=== PATIENT | female | born 1945 | race Caucasian/White ===

== ENCOUNTER 2016-10-07 18:47 | Observation (INO) | payer MEDICARE ==
--- NOTE | 2016-10-07 19:27 | RAD ---
INDICATION: Neurologic change. Code licona. COMPARISON: None TECHNIQUE: Noncontrast axial source images were acquired from the skull base to the vertex. FINDINGS: Ventricles/sulci: The ventricles and cisterns are normal in size and configuration for age. Brain parenchyma: There is periventricular and subcortical white matter change compatible with chronic ischemia. Intracranial hemorrhage:None. Extra-axial spaces: There are no abnormal extra axial fluid collections or evidence of extra-axial mass. Calvarium: There is no calvarial fracture or other calvarial abnormality. Scalp: There is no evidence of scalp or extracalvarial soft tissue abnormality. Paranasal sinuses/mastoid: The paranasal sinuses and mastoid air cells are clear. Other: None. IMPRESSION: Chronic microvascular ischemic changes. No acute findings. Findings called to ED at 1925 hours
[2016-10-07 19:39] LABS: Hematocrit 36 % (35-47); Mean Corpuscular HGB Conc 33 g/dl (31-36); Mean Corpuscular Hemoglobin 27 pg (27-31); Mean Corpuscular Volume 81 fL (80-97); Mean Platelet Volume 9 um3 (7.4-10.4); Red Cell Distribution Width 13 % (10.5-15); White Blood Count 7.9 10^3/ul (3.5-10.8)
--- NOTE | 2016-10-07 19:46 | RAD ---
INDICATION: Slurred speech COMPARISON: None TECHNIQUE: An AP portable view obtained at 1931 hours is submitted. FINDINGS: Bones/Soft Tissues: There are no acute bony findings. Cardiomediastinal: The cardiomediastinal silhouette is normal. Lungs: There are no infiltrates. Pleura: There are no pleural effusions. Other: None IMPRESSION: NO ACTIVE DISEASE.
[2016-10-07 19:47] LABS: Troponin I 0.02 ng/mL (<0.04)
[2016-10-07 19:58] LABS: Albumin 3.9 g/dL (3.2-5.2); Calcium 9.1 mg/dL (8.6-10.3); EGFR African American 98.5 (>60); EGFR Non-African American 76.6 (>60); Globulin 2.6 g/dL (2-4); Potassium 3.2 mmol/L (3.5-5.0); Total Bilirubin 0.5 mg/dL (0.2-1.0); Total Protein 6.5 g/dL (6.4-8.9)
[2016-10-07] MEDS ORDERED: Iodixanol* (CONTRAST) 320 MG/ML 100 ML SDV IV ONE (20:52)
--- NOTE | 2016-10-07 21:36 | RAD ---
INDICATION: Neurologic change. Code licona. COMPARISON: CT brain same date TECHNIQUE: Axial source images were acquired with coronal and sagittal reconstructions. CT angiographic technique was utilized with injection of 80 mL Visipaque 320. FINDINGS: Aortic arch: There are no CT angiogram abnormalities of the arch or the great vessels arising from the arch. Right carotid: The internal carotid artery, carotid bifurcation, extracranial portions of the internal carotid artery, carotid artery at the skull base, carotid siphon, and carotid termination appear patent. There is minor soft plaque formation at the bifurcation with a estimated 30-40% diameter narrowing. Left carotid:The internal carotid artery, carotid bifurcation, extracranial portions of the internal carotid artery, carotid artery at the skull base, carotid siphon, and carotid termination appear widely patent. There is mild plaque formation at bifurcation without significant luminal compromise. The estimated diameter stenosis is approximately 30-40%. Right middle and anterior cerebral arteries: There is luminal narrowing and possible thrombus thrombus in left MCA originating at the level of the M1 segment with significant attenuation of the distal distribution of the middle cerebral artery. There are no CT angiographic abnormalities of the right anterior cerebral artery. Left middle and anterior cerebral arteries: There are no CT angiographic abnormalities of the middle or anterior cerebral arteries Right vertebral: The CT angiographic appearance of the vertebral artery is normal. Left vertebral: The CT angiographic appearance of the vertebral artery is normal. Basilar artery: The basilar artery and basilar tip appear normal. Posterior cerebral arteries: The distal distribution of the right and left posterior cerebral arteries is normal. [place]: The CT angiographic appearance of the [place] is normal. Source images show no evidence of mass or adenopathy within the neck. The thyroid is mildly heterogeneous, particularly the right lobe. There is a small calcification. There are no focal parenchymal abnormalities or abnormal areas of enhancement. IMPRESSION: ATTENUATION LEFT MIDDLE CEREBRAL ARTERY PERHAPS RELATED TO LUMINAL NARROWING AND/OR THROMBUS ORIGINATING AT THE LEVEL OF THE M1 SEGMENT. Findings called to the emergency department. CPT II Codes: 3100F PQRS
[2016-10-07 22:14] LABS: Urine Bacteria 1+ (Absent); Urine Bilirubin Negative (Negative); Urine Glucose 1+(50 mg/dL) (Negative); Urine Nitrite Negative (Negative)
[2016-10-07] MEDS ORDERED: Acetaminophen TAB* 325 MG PO PRN (23:38)
[2016-10-07] MEDS ORDERED: LORazepam TAB(*) 0.5 MG PO ONE (23:40)
[2016-10-07] MEDS ORDERED: Ondansetron INJ* 2 MG/ML VIAL IV PRN (23:40)
--- NOTE | 2016-10-07 23:59 | ED ---
Shawnee Alvarado Alfonso, scribed for Kwasi Abdalla MD on 10/07/16 at 1858 . Neurological HPI - HPI Summary HPI Summary: This patient is a 73 year old female BIBA to [facility] for sudden slurred speech that began at 1705 today. She was out with her daughter who called 911 because she thought the slurred speech may be secondary to CVA. The patient also fell to the floor when she missed the seat of the car entering a motor vehicle. Symptoms aggravated and alleviated by nothing. She reports feeling tiered. PMHx of right sided deficit stroke 2.5 years ago. - History of Current Complaint Chief Complaint: EDNeurologicalDeficit Stated Complaint: POSS STROKE Time Seen by Provider: 10/07/16 18:49 Hx Obtained From: Patient, Family/Lumber Bearer - Daughter Onset/Duration: Sudden Onset, Started minutes ago - 1705 Onset Severity: Moderate Current Severity: Moderate Seizure Severity: Moderate Character: Impaired Speech - slurred, Other: - Positive tired, fixed gaze, and fall while entering motor vehicle Aggravating: Nothing Alleviating: Nothing Associated Signs and Symptoms: Positive: Weakness, Impaired Speech - Slurred - Allergy/Home Medications Allergies/Adverse Reactions: Allergies Allergy/AdvReac Type Severity Reaction Status Date / Time No Known Allergies Allergy Verified 10/07/16 20:49 Home Medications: Home Medications Amitriptyline TAB* [Elavil TAB*] 10 mg PO BEDTIME 10/07/16 [History Confirmed ] Aspirin [Aspirin 81 MG TAB] 81 mg PO DAILY 10/07/16 [History Confirmed 10/07/16] Glyburide 10/07/16 [History] PARoxetine HCL TAB* [Paxil TAB*] 30 mg PO DAILY 10/07/16 [History Confirmed ] Plavix TAB* 10/07/16 [History] QUEtiapine XR TAB* [SEROquel Xr TAB*] 300 mg PO BEDTIME 10/07/16 [History Confirmed 10/07/16] Simvastatin 10/07/16 [History] metFORMIN* [Glucophage 500 MG TAB *] 500 mg PO BID 10/07/16 [History Confirmed 10/07/16] PMH/Surg Hx/FS Hx/Imm Hx Sensory History: Denies: Hx Deafness Opthamlomology History: Denies: Hx Legally Blind - Family History Known Family History: Positive: Other - Conon cancer in mother - Social History Alcohol Use: None Hx Substance Use: No Substance Use Type: Reports: None Hx Tobacco Use: No Review of Systems Negative: Fever Neurological: Other - Positive tiered, fixed gaze, and fall while entering a motor vehicle Positive: Slurred Speech All Other Systems Reviewed And Are Negative: Yes Physical Exam Triage Information Reviewed: Yes Vital Signs On Initial Exam: Initial Vitals Temp Pulse Resp BP Pulse Ox 98.3 F 105 22 143/79 98 10/07/16 18:48 10/07/16 18:48 10/07/16 18:48 10/07/16 18:48 10/07/16 18:48 Vital Signs Reviewed: Yes Appearance: Positive: Well-Appearing, No Pain Distress Skin: Positive: Warm, Skin Color Reflects Adequate Perfusion, Dry Head/Face: Positive: Normal Head/Face Inspection Eyes: Positive: Normal ENT: Positive: Normal ENT inspection Neck: Positive: Supple, Nontender Respiratory/Lung Sounds: Positive: Clear to Auscultation, Breath Sounds Present Cardiovascular: Positive: RRR Abdomen Description: Positive: Nontender, Soft Bowel Sounds: Positive: Present Musculoskeletal: Positive: Normal Neurological: Positive: Normal, Sensory/Motor Intact, Alert, Oriented to Person Place, Time, CN Intact II-III, Slurred Speech Psychiatric: Positive: Affect/Mood Appropriate Diagnostics - Vital Signs Vital Signs Temp Pulse Resp BP Pulse Ox 10/07/16 23:00 80 22 93 10/07/16 22:30 81 21 152/80 99 10/07/16 22:00 116 98 10/07/16 21:30 19 159/67 10/07/16 21:00 84 23 97 10/07/16 20:57 88 13 97 10/07/16 18:48 98.3 F 105 22 143/79 98 - Laboratory Lab Results: Lab Results 10/07/16 10/07/16 10/07/16 Range/Units 19:23 19:23 19:23 WBC 7.9 (3.5-10.8) 10^3/ul RBC 4.50 (4.0-5.4) 10^6/ul Hgb 12.0 (12.0-16.0) g/dl Hct 36 (35-47) % MCV 81 (80-97) fL MCH 27 (27-31) pg MCHC 33 (31-36) g/dl RDW 13 (10.5-15) % Plt Count 215 (150-450) 10^3/ul MPV 9 (7.4-10.4) um3 Neut % (Auto) 63.7 (38-83) % Lymph % (Auto) 27.7 (25-47) % [place] % (Auto) 6.7 (1-9) % Eos % (Auto) 1.4 (0-6) % Baso % (Auto) 0.5 (0-2) % Absolute Neuts (auto) 5.0 (1.5-7.7) 10^3/ul Absolute Lymphs (auto) 2.2 (1.0-4.8) 10^3/ul Absolute Monos (auto) 0.5 (0-0.8) 10^3/ul Absolute Eos (auto) 0.1 (0-0.6) 10^3/ul Absolute Basos (auto) 0 (0-0.2) 10^3/ul Absolute Nucleated RBC 0.04 10^3/ul Nucleated RBC % 0.5 INR (Anticoag Therapy) 0.86 L (0.89-1.11) APTT 27.5 (26.0-36.3) seconds Sodium 134 (133-145) mmol/L Potassium 3.2 L (3.5-5.0) mmol/L Chloride 102 (101-111) mmol/L Carbon Dioxide 23 (22-32) mmol/L Anion Gap 9 (2-11) mmol/L BUN 15 (6-24) mg/dL Creatinine 0.75 (0.51-0.95) mg/dL Est GFR ( Amer) 98.5 (>60) Est GFR (Non-Af Amer) 76.6 (>60) BUN/Creatinine Ratio 20.0 (8-20) Glucose 184 H (70-100) mg/dL Lactic Acid (0.5-2.0) mmol/L Calcium 9.1 (8.6-10.3) mg/dL Total Bilirubin 0.50 (0.2-1.0) mg/dL AST 18 (13-39) U/L ALT 15 (7-52) U/L Alkaline Phosphatase 56 (34-104) U/L Troponin I 0.02 (<0.04) ng/mL Total Protein 6.5 (6.4-8.9) g/dL Albumin 3.9 (3.2-5.2) g/dL Globulin 2.6 (2-4) g/dL Albumin/Globulin Ratio 1.5 (1-3) Triglycerides 126 mg/dL Cholesterol 126 mg/dL LDL Cholesterol 50 mg/dL HDL Cholesterol 51.0 mg/dL Urine Color Urine Appearance Urine pH (5-9) Ur Specific [place] (1.010-1.030) Urine Protein (Negative) Urine Ketones (Negative) Urine Blood (Negative) Urine Nitrate (Negative) Urine Bilirubin (Negative) Urine Urobilinogen (Negative) Ur Leukocyte Esterase (Negative) Urine WBC (Auto) (Absent) Urine RBC (Auto) (Absent) Ur Squamous Epith Cells (Absent) Urine Bacteria (Absent) Urine Glucose (Negative) Blood Type Antibody Screen 10/07/16 10/07/16 10/07/16 Range/Units 19:23 19:23 22:00 WBC (3.5-10.8) 10^3/ul RBC (4.0-5.4) 10^6/ul Hgb (12.0-16.0) g/dl Hct (35-47) % MCV (80-97) fL MCH (27-31) pg MCHC (31-36) g/dl RDW (10.5-15) % Plt Count (150-450) 10^3/ul MPV (7.4-10.4) um3 Neut % (Auto) (38-83) % Lymph % (Auto) (25-47) % [place] % (Auto) (1-9) % Eos % (Auto) (0-6) % Baso % (Auto) (0-2) % Absolute Neuts (auto) (1.5-7.7) 10^3/ul Absolute Lymphs (auto) (1.0-4.8) 10^3/ul Absolute Monos (auto) (0-0.8) 10^3/ul Absolute Eos (auto) (0-0.6) 10^3/ul Absolute Basos (auto) (0-0.2) 10^3/ul Absolute Nucleated RBC 10^3/ul Nucleated RBC % INR (Anticoag Therapy) (0.89-1.11) APTT (26.0-36.3) seconds Sodium (133-145) mmol/L Potassium (3.5-5.0) mmol/L Chloride (101-111) mmol/L Carbon Dioxide (22-32) mmol/L Anion Gap (2-11) mmol/L BUN (6-24) mg/dL Creatinine (0.51-0.95) mg/dL Est GFR ( Amer) (>60) Est GFR (Non-Af Amer) (>60) BUN/Creatinine Ratio (8-20) Glucose (70-100) mg/dL Lactic Acid 0.9 (0.5-2.0) mmol/L Calcium (8.6-10.3) mg/dL Total Bilirubin (0.2-1.0) mg/dL AST (13-39) U/L ALT (7-52) U/L Alkaline Phosphatase (34-104) U/L Troponin I (<0.04) ng/mL Total Protein (6.4-8.9) g/dL Albumin (3.2-5.2) g/dL Globulin (2-4) g/dL Albumin/Globulin Ratio (1-3) Triglycerides mg/dL Cholesterol mg/dL LDL Cholesterol mg/dL HDL Cholesterol mg/dL Urine Color Straw Urine Appearance Clear Urine pH 5.0 (5-9) Ur Specific [place] 1.023 (1.010-1.030) Urine Protein Negative (Negative) Urine Ketones Negative (Negative) Urine Blood Negative (Negative) Urine Nitrate Negative (Negative) Urine Bilirubin Negative (Negative) Urine Urobilinogen Negative (Negative) Ur Leukocyte Esterase Trace H (Negative) Urine WBC (Auto) Trace(0-5/hpf) (Absent) Urine RBC (Auto) Trace(0-2/hpf) (Absent) Ur Squamous Epith Cells Present H (Absent) Urine Bacteria 1+ H (Absent) Urine Glucose 1+(50 mg/dl) H (Negative) Blood Type A Negative Antibody Screen Negative Result Diagrams: 10/07/16 19:23 10/07/16 19:23 Lab Statement: Any lab studies that have been ordered have been reviewed, and results considered in the medical decision making process. - Radiology CXR Xray Interpretation: No Acute Changes - No active disease Radiology Interpretation Completed By: Radiologist - CT Brain CT CT Interpretation Completed By: Radiologist - Chronic microvascular ischemic changes. No acute findings. Head CTA CT Interpretation: Positive (See Comments) - ATTENUATION LEFT MIDDLE CEREBRAL ARTERY PERHAPS RELATED TO LUMINAL NARROWING AND/OR THROMBUS ORIGINATING AT THE LEVEL OF THE M1 SEGMENT. CT Interpretation Completed By: Radiologist - EKG 190 EKG Interpretation: BPM 96; Borderline sinus tachycardia Course/Dx - Course Course Of Treatment: Ms. Boone had a sudden onset of dysarthria about 1205. Her daughter could not understand her. She improved some by the time she got to the hospital but was still slurring her speech. A code pierson was called. She will be admitted by the hospitalist. - Diagnoses Provider Diagnoses: CVA (cerebral vascular accident) - Physician Notifications Discussed Care Of Patient With: Jackelyn Bruce Time Discussed With Above Provider: 19:26 Instructed by Provider To: Will See In ED - Consulted Dr. Bruce (Neurologist ) who will evaluate pt in ED. Consulted - Critical Care Time Critical Care Time: 30-74 min Discharge - Discharge Plan Condition: Stable Disposition: ADMITTED TO [facility] documentation as recorded by the Shawnee martínez Alfonso accurately reflects the service I personally performed and the decisions made by me, Kwasi Abdalla MD.
--- NOTE | 2016-10-08 00:25 | HP ---
H&P (Free Text) History and Physical: PCP: none Date/Time of Evaluation: 10/07/2016 2300 CC: slurred speech, generalized weakness HPI: Mrs Boone is a 71YO female HX L [facility] CVA 2014 who was riding in a car with her daughter when around 1800 she developed sudden onset of slurred speech. Her daughter pulled into [employer] parking lot and they got out. She was able to get around the car to assist her mother to the ground as both legs buckled. Her daughter noticed r facial droop. There was no LOC, head impact, loss of bowel/bladder, focal N/T, headache, N/V, chest pain, SOB, or palpitations. As it happened, a [facility] nurse was in a nearby car available to assist and called EMS. Her symptoms began to resolve after ~5minutes and she reports being at baseline upon arrival to [facility]. PMedHx L [facility] CVA 2014 DM2 HTN HLD depression/anxiety insomnia Ambulatory Orders Amitriptyline TAB* [Elavil TAB*] 10 mg PO BEDTIME 10/07/16 Aspirin [Aspirin 81 MG TAB] 81 mg PO DAILY 10/07/16 Glyburide 10/07/16 PARoxetine HCL TAB* [Paxil TAB*] 30 mg PO DAILY 10/07/16 Plavix TAB* 10/07/16 QUEtiapine XR TAB* [SEROquel Xr TAB*] 300 mg PO BEDTIME 10/07/16 Simvastatin 10/07/16 metFORMIN* [Glucophage 500 MG TAB *] 500 mg PO BID 10/07/16 Allergies No Known Allergies Allergy (Verified 10/07/16 20:49) PSurgHx OU cataract extractions cholecystectomy appendectomy D&C hysterectomy SocHx: denies tobacco, alcohol, & recreational drug HX; , lives alone; DNR/trial of intubation code status, MOLST filled out FamHx: Mother passed of CAD in her 60s. Father passed of prostate CA in his 80s. ROS: as above, otherwise reviewed and all were negative Constitutional: NAD, normally developed, well-nourished overweight white female vitals: Vital Signs Temp 36.8 C 10/07/16 18:48 Pulse 82 10/07/16 23:30 Resp 21 10/07/16 23:30 BP 144/76 10/07/16 23:30 Pulse Ox 100 10/07/16 23:30 Intake & Output 10/07/16 10/07/16 10/08/16 11:59 23:59 11:59 Weight 76.204 kg HEENM: atraumatic; sclera/conjunctiva: non-icteric/clear; hearing: clinically mildly decreased; oropharynx: clear, mucosa moist Neck: soft tissue: non-tender; thyroid: normal Pulmonary: clear to auscultation bilaterally, good aeration, no accessory muscle use CV: RR/RR, normal S1S2, no carotid bruit, no jugular venous distention, 2+ B DP/ PT, no edema Abdominal: soft, non-distended, non-tender, no rebound/guarding/rigidity, normoactive bowel sounds, no hepatosplenomegaly or masses, no costovertebral angle tenderness Musculoskeletal: general: grossly intact; gait: stable Integumental: normal appearance and texture of exposed skin Neurological cranial nerves II: visual patricia tested independently & intact III/IV/: symmetric light reflex, EOMI/PERRLA V: intact facial sensation & mastication VII: intact facial symmetry VIII: hearing clinically mildly decreased AU IX/X: intact palatal motion, no dysarthria XII: midline tongue protrusion, normal voice articulation motor: R-handed LUE: 4+/5 proximally, distally, & retail selling floor leader strength RUE: 4+/5 proximally, distally, & retail selling floor leader strength LLE: 4+/5 proximally & distally RLE: 4+/5 proximally & distally coordination finger/nose: intact, symmetric heal/blanton: intact, symmetric sensory crude touch: globally intact proprioception: intact BLE DTRs Babinski: equivocal R, downgoing L Psychiatric orientation: AA&O to PPS affect: calm mood: cooperative eye contact: good content: reliable responses: timely insight: good to fair Testing: Lab Results 10/07/16 10/07/16 10/07/16 Range/Units 19:23 19:23 19:23 WBC 7.9 (3.5-10.8) 10^3/ul RBC 4.50 (4.0-5.4) 10^6/ul Hgb 12.0 (12.0-16.0) g/dl Hct 36 (35-47) % MCV 81 (80-97) fL MCH 27 (27-31) pg MCHC 33 (31-36) g/dl RDW 13 (10.5-15) % Plt Count 215 (150-450) 10^3/ul MPV 9 (7.4-10.4) um3 Neut % (Auto) 63.7 (38-83) % Lymph % (Auto) 27.7 (25-47) % [place] % (Auto) 6.7 (1-9) % Eos % (Auto) 1.4 (0-6) % Baso % (Auto) 0.5 (0-2) % Absolute Neuts (auto) 5.0 (1.5-7.7) 10^3/ul Absolute Lymphs (auto) 2.2 (1.0-4.8) 10^3/ul Absolute Monos (auto) 0.5 (0-0.8) 10^3/ul Absolute Eos (auto) 0.1 (0-0.6) 10^3/ul Absolute Basos (auto) 0 (0-0.2) 10^3/ul Absolute Nucleated RBC 0.04 10^3/ul Nucleated RBC % 0.5 INR (Anticoag Therapy) 0.86 L (0.89-1.11) APTT 27.5 (26.0-36.3) seconds Sodium 134 (133-145) mmol/L Potassium 3.2 L (3.5-5.0) mmol/L Chloride 102 (101-111) mmol/L Carbon Dioxide 23 (22-32) mmol/L Anion Gap 9 (2-11) mmol/L BUN 15 (6-24) mg/dL Creatinine 0.75 (0.51-0.95) mg/dL Est GFR ( Amer) 98.5 (>60) Est GFR (Non-Af Amer) 76.6 (>60) BUN/Creatinine Ratio 20.0 (8-20) Glucose 184 H (70-100) mg/dL Lactic Acid (0.5-2.0) mmol/L Calcium 9.1 (8.6-10.3) mg/dL Total Bilirubin 0.50 (0.2-1.0) mg/dL AST 18 (13-39) U/L ALT 15 (7-52) U/L Alkaline Phosphatase 56 (34-104) U/L Troponin I 0.02 (<0.04) ng/mL Total Protein 6.5 (6.4-8.9) g/dL Albumin 3.9 (3.2-5.2) g/dL Globulin 2.6 (2-4) g/dL Albumin/Globulin Ratio 1.5 (1-3) Triglycerides 126 mg/dL Cholesterol 126 mg/dL LDL Cholesterol 50 mg/dL HDL Cholesterol 51.0 mg/dL Urine Color Urine Appearance Urine pH (5-9) Ur Specific [place] (1.010-1.030) Urine Protein (Negative) Urine Ketones (Negative) Urine Blood (Negative) Urine Nitrate (Negative) Urine Bilirubin (Negative) Urine Urobilinogen (Negative) Ur Leukocyte Esterase (Negative) Urine WBC (Auto) (Absent) Urine RBC (Auto) (Absent) Ur Squamous Epith Cells (Absent) Urine Bacteria (Absent) Urine Glucose (Negative) Blood Type Antibody Screen 10/07/16 10/07/16 10/07/16 Range/Units 19:23 19:23 22:00 WBC (3.5-10.8) 10^3/ul RBC (4.0-5.4) 10^6/ul Hgb (12.0-16.0) g/dl Hct (35-47) % MCV (80-97) fL MCH (27-31) pg MCHC (31-36) g/dl RDW (10.5-15) % Plt Count (150-450) 10^3/ul MPV (7.4-10.4) um3 Neut % (Auto) (38-83) % Lymph % (Auto) (25-47) % [place] % (Auto) (1-9) % Eos % (Auto) (0-6) % Baso % (Auto) (0-2) % Absolute Neuts (auto) (1.5-7.7) 10^3/ul Absolute Lymphs (auto) (1.0-4.8) 10^3/ul Absolute Monos (auto) (0-0.8) 10^3/ul Absolute Eos (auto) (0-0.6) 10^3/ul Absolute Basos (auto) (0-0.2) 10^3/ul Absolute Nucleated RBC 10^3/ul Nucleated RBC % INR (Anticoag Therapy) (0.89-1.11) APTT (26.0-36.3) seconds Sodium (133-145) mmol/L Potassium (3.5-5.0) mmol/L Chloride (101-111) mmol/L Carbon Dioxide (22-32) mmol/L Anion Gap (2-11) mmol/L BUN (6-24) mg/dL Creatinine (0.51-0.95) mg/dL Est GFR ( Amer) (>60) Est GFR (Non-Af Amer) (>60) BUN/Creatinine Ratio (8-20) Glucose (70-100) mg/dL Lactic Acid 0.9 (0.5-2.0) mmol/L Calcium (8.6-10.3) mg/dL Total Bilirubin (0.2-1.0) mg/dL AST (13-39) U/L ALT (7-52) U/L Alkaline Phosphatase (34-104) U/L Troponin I (<0.04) ng/mL Total Protein (6.4-8.9) g/dL Albumin (3.2-5.2) g/dL Globulin (2-4) g/dL Albumin/Globulin Ratio (1-3) Triglycerides mg/dL Cholesterol mg/dL LDL Cholesterol mg/dL HDL Cholesterol mg/dL Urine Color Straw Urine Appearance Clear Urine pH 5.0 (5-9) Ur Specific [place] 1.023 (1.010-1.030) Urine Protein Negative (Negative) Urine Ketones Negative (Negative) Urine Blood Negative (Negative) Urine Nitrate Negative (Negative) Urine Bilirubin Negative (Negative) Urine Urobilinogen Negative (Negative) Ur Leukocyte Esterase Trace H (Negative) Urine WBC (Auto) Trace(0-5/hpf) (Absent) Urine RBC (Auto) Trace(0-2/hpf) (Absent) Ur Squamous Epith Cells Present H (Absent) Urine Bacteria 1+ H (Absent) Urine Glucose 1+(50 mg/dl) H (Negative) Blood Type A Negative Antibody Screen Negative ECG, personally reviewed: NSR rate 96, no ischemia CXR, personally reviewed: IMPRESSION: NO ACTIVE DISEASE. CT brain WO, personally reviewed: IMPRESSION: Chronic microvascular ischemic changes. No acute findings. CTA head/neck, personally reviewed: IMPRESSION: ATTENUATION LEFT MIDDLE CEREBRAL ARTERY PERHAPS RELATED TO LUMINAL NARROWING AND/OR THROMBUS ORIGINATING AT THE LEVEL OF THE M1 SEGMENT. Impression: 71F HX L MCA CVA presents w/ L MCA TIA DIAGNOSIS & PLAN Primary L MCA TIA : HX L [facility] CVA 2015 : aspirin : telemetry : neurochecks : supplemental oxygen : Andrew Bruce MD consulted by Branden Abdalla MD ED; will follow : EEG in AM : supportive care Secondary DM2 : insulin carb ratio diet : basal/bolus/correctional insulin : check A1c HTN : review meds once reconciled HLD : continue simvastatin once reconciled depression/anxiety : review meds once reconciled insomnia : 0.5mg PO lorazepam HS PRN Admission Rational: CDU observation for TIA DVTp: SCDs & heparin SQ Code Status: full HCP: daughter, Amanda Poe
[2016-10-08] MEDS: NS 0.9% 1000 ML* 1,000 ML IV SCH ×2 (00:45→23:48)
[2016-10-08] MEDS: Potassium Chlor TAB* 20 MEQ TAB.ER PO SCH ×2 (01:13→04:43)
[2016-10-08] MEDS ORDERED: Omeprazole CAP* 20 MG PO SCH (06:00)
[2016-10-08 06:02] LABS: Calcium 8.8 mg/dL (8.6-10.3); EGFR African American 101.7 (>60); Potassium 3.6 mmol/L (3.5-5.0)
[2016-10-08] MEDS: Heparin VIAL(*) 5000 UNITS/ML VIAL (FIVE THOUSAND) SUBCUT SCH ×3 (06:11→22:34)
[2016-10-08 07:25] LABS: BUN/Creatinine Ratio 17.8 (8-20)
[2016-10-08] MEDS ORDERED: Insulin LISPRO* 1 UNITS UNIT SUBCUT SCH (07:30)
[2016-10-08] MEDS: Insulin LISPRO* 1 UNITS UNIT SUBCUT SCH ×4 (07:32→23:48)
[2016-10-08] MEDS: PARoxetine HCL TAB* 10 MG PO SCH (08:47)
[2016-10-08] MEDS ORDERED: Aspirin TAB* 325 MG PO SCH (09:00)
[2016-10-08] MEDS: Docusate CAP* 100 MG PO SCH ×2 (10:52→22:33)
[2016-10-08] MEDS ORDERED: LORazepam INJ* 2 MG/ML 1 ML VIAL IV PUSH PRN (10:59)
--- NOTE | 2016-10-08 11:03 | PN ---
Subjective Date of Service: 10/08/16 Interval History: Patient seen this morning. Reports neuro symptoms have resolved. No further speech issues. Feeling very anxious. Previous stroke presented as RLE numbness/ weakness and she was at rehab for 1 month. Family History: Unchanged from Admission Social History: Unchanged from Admission Past Medical History: Unchanged from Admission Objective Active Medications: Acetaminophen (Tylenol Tab*) 650 mg PO Q6H PRN Amitriptyline HCl (Elavil Tab*) 10 mg PO BEDTIME OREN Aspirin (Aspirin Tab*) 325 mg PO DAILY OREN Docusate Sodium (Colace Cap*) 200 mg PO BID OREN Heparin Sodium (Porcine) (Heparin Vial(*)) 5,000 units SUBCUT Q8HR OREN Sodium Chloride (Ns 0.9% 1000 Ml*) 1,000 mls @ 50 mls/hr IV PER RATE OREN Insulin Glargine (Lantus(*)) 15 units SUBCUT 2100 OREN Insulin Human Lispro (Humalog*) 0 units SUBCUT AC OREN Insulin Human Lispro (Humalog*) 0 units SUBCUT ACHS OREN Omeprazole (Prilosec Cap*) 20 mg PO DAILY@0600 OREN Ondansetron HCl (Zofran Inj*) 4 mg IV Q6H PRN Paroxetine HCl (Paxil Tab*) 30 mg PO DAILY OREN Quetiapine Fumarate (Seroquel Xr Tab*) 300 mg PO BEDTIME OREN Vital Signs 10/08/16 10/08/16 10/08/16 00:26 01:13 03:13 Temperature 98.0 F Pulse Rate 95 Respiratory 20 20 18 Rate Blood Pressure 142/53 (mmHg) O2 Sat by Pulse 100 Oximetry 10/08/16 10/08/16 10/08/16 04:04 07:24 09:31 Temperature 98.0 F 98.6 F Pulse Rate 73 72 Respiratory 16 16 Rate Blood Pressure 142/56 122/58 (mmHg) O2 Sat by Pulse 98 99 99 Oximetry Oxygen Devices in Use Now: None Appearance: Middle-aged, F, laying in bed, appears mildly anxious Eyes: No Scleral Icterus Ears/Nose/Mouth/Throat: Mucous Membranes Moist Neck: NL Appearance and Movements; NL JVP Respiratory: Symmetrical Chest Expansion and Respiratory Effort, Clear to Auscultation Cardiovascular: NL Sounds; No Murmurs; No JVD, RRR Abdominal: NL Sounds; No Tenderness; No Distention Lymphatic: No Cervical Adenopathy Extremities: No Edema Skin: No Rash or Ulcers Neurological: Alert and Oriented x 3, NL Muscle Strength and Tone - Limited R eye adduction, remained of tissue technologist seem intact, - Result Diagrams: 10/07/16 19:23 10/08/16 05:17 Assess/Plan/Problems-Billing Assessment: TIA/CVA in a 71 yo F with hx of CVA, HTN, HLD, DM2, depression/anxiety - Patient Problems (1) TIA (transient ischemic attack) Current Visit: Yes Comment: possible CVA, some deficits in EOM, unclear if this is new. CTA H/N showed possible narrowing/thrombus of M1 segment of L MCA. Echo and MRI ordered and pending. LDL 50. Continue telemetry monitoring. Patient is on ASA/Plavix at home, will continue for now. Continue statin. (2) Diabetes Current Visit: Yes Comment: Continue SSI coverage, stop carb ratio as BG low this AM. HbA1c pending. Holding home medications. (3) HLD (hyperlipidemia) Current Visit: Yes Comment: Continue statin (4) Anxiety Current Visit: Yes Comment: Continue Seroquel, Paxil, Elavil. PRN ativan for MRI (5) DVT prophylaxis Current Visit: Yes Comment: HSQ
[2016-10-08] MEDS ORDERED: LORazepam INJ* 2 MG/ML 1 ML VIAL IV PUSH ONE (11:22)
[2016-10-08] MEDS: Clopidogrel TAB* 75 MG PO SCH (12:26)
[2016-10-08] MEDS: Atorvastatin* 20 MG TAB PO SCH (12:26)
[2016-10-08] MEDS: Levothyroxine TAB* 50 MCG TAB PO SCH (12:28)
--- NOTE | 2016-10-08 15:15 | ECHO ---
Patient: KASHMIR PATEL [facility] Rec#: [id number] : 1945 Date: 10/08/2016 Age: 71y Height: 170.18 cm / 67.0 in Weight: 76.2 kg / 167.9 lbs Sex: F BSA: 1.88 Room#: 433 Admit Date#: 10/08/2016 Type: Inpatient Referring: CARMELLA SCHWARTZ MD Reading: Clif Burnett MD Instructor Extension Work: Kennedi ZunigaCHRISTUS [facility] Transthoracic Echocardiogram Indication: TIA/CVA BP: 122/58 HR: 78 Rhythm: NSR Indications Cerebrovascular Disease Findings History: Prior left MCA CVA 2014, DMII, HTN, HLD, depression/ anxiety. Technical Comments: The study quality is fair. Completed at 1445. Left Ventricle: The left ventricular chamber size is normal. There is no left ventricular hypertrophy. Global left ventricular wall motion and contractility are within normal limits. There is normal left ventricular systolic function. The estimated ejection fraction is 55-60%. Abnormal left ventricular diastolic filling is observed, consistent with impaired relaxation. Left Atrium: The left atrium is mildly dilated. Right Ventricle: The right ventricular cavity size is normal. The right ventricular global systolic function is normal. Right Atrium: The right atrial cavity size is normal. There is no patent foramen ovale visualized. The bubble study is negative. A patent foramen ovale is not demonstrated with color Doppler and agitated contrast. Aortic Valve: The aortic valve is trileaflet. There is no evidence of aortic regurgitation. There is no evidence of aortic stenosis. Mitral Valve: The mitral valve leaflets are mildly thickened. There is mild mitral regurgitation. There is no evidence of mitral stenosis. Tricuspid Valve: The tricuspid valve leaflets are normal. There is mild tricuspid regurgitation. No pulmonary hypertension is noted. There is no tricuspid stenosis. Pulmonic Valve: The pulmonic valve appears normal. There is a trace pulmonic regurgitation. There is no pulmonic stenosis. Pericardium: There is no significant pericardial effusion. A pericardial fat pad is visualized. Aorta: There is no dilatation of the ascending aorta. There is no dilatation of the aortic arch. There is no dilation of the aortic root. Pulmonary Artery: The main pulmonary artery is not well visualized. Venous: The venous system is not well visualized. The inferior vena cava appears normal in size. There is a greater than 50% respiratory change in the inferior vena cava dimension. Contrast: Normal saline was used as contrast for the bubble study. Images 86 and 87. Intravenous contrast was used to help determine presence of intracardiac shunting. Conclusions There is normal left ventricular systolic function. The estimated ejection fraction is 55-60%. Abnormal left ventricular diastolic filling is observed, consistent with impaired relaxation. The left atrium is mildly dilated. No evidence of right to left shunting at the atrial level. No significant valvular disease: There is mild mitral regurgitation. There is mild tricuspid regurgitation. There is a trace pulmonic regurgitation. No reports of prior studies offered for comparison. Measurements Name Value Normal Range RVIDd (AP) 2D 2.5 cm (0.9 - 2.6) RVDdMajor (2D) 3.7 cm (2.2 - 4.4) RAd ISD 4CH 4.6 cm (3.4 - 4.9) RA (A4C)W 3.8 cm (2.9 - 4.6) IVSd (2D) 0.9 cm (0.6 - 1) LVPWd (2D) 0.9 cm (0.6 - 1) LVIDd (2D) 4.8 cm (3.6 - 5.4) LVIDs (2D) 3.6 cm - LV FS (2D) 25 % (25 - 45) Aortic Annulus 2 cm (1.4 - 2.6) Ao root diameter (2D) 3.2 cm (2.1 - 3.5) Ascending Ao 2.8 cm (2.1 - 3.4) Aortic arch 2.4 cm (1.8 - 3.4) LA dimension (AP) 2D 4.1 cm (2.3 - 3.8) LAd ISD 4CH 5.3 cm (2.9 - 5.3) LA ISD 4CH W 4 cm (2.5 - 4.5) Name Value Normal Range LA ESV SP 4CH (A/L) 67 ml - LA ESV SP 2CH (A/L) 59 ml - LA ESV BP (A/L) 65 ml - LA ESV BP (A/L) index 34.37 ml/m2 - LA ESV SP 4CH (MOD) 65 ml - LA ESV SP 2CH (MOD) 56 ml - Name Value Normal Range MV E-wave Vmax 0.78 m/sec - MV deceleration time 226.18 msec - MV A-wave Vmax 1.09 m/sec - MV E:A ratio 0.72 ratio - LV septal e' Vmax 0.05 m/sec - LV lateral e' Vmax 0.08 m/sec - LV E:e' septal ratio 15.6 ratio - LV E:e' lateral ratio 9.75 ratio - Name Value Normal Range AV Vmax 1.27 m/sec - AV VTI 27.3 cm - AV peak gradient 5.28 mmHg - AV mean gradient 3.73 mmHg - LVOT Vmax 1.07 m/sec - LVOT VTI 22.78 cm - LVOT peak gradient 4.61 mmHg - LVOT mean gradient 2.31 mmHg - LINDA Vmax 0.6 m/sec - Name Value Normal Range TR Vmax 2.4 m/sec - TR peak gradient 23 mmHg - RAP 3 mmHg - RVSP 26 mmHg - IVC diameter 1.5 cm - Name Value Normal Range PV Vmax 0.93 m/sec - PV peak gradient 3.44 mmHg -
[2016-10-08] MEDS ORDERED: LORazepam TAB(*) 0.5 MG PO PRN (15:47)
[2016-10-08] MEDS: LORazepam INJ* 2 MG/ML 1 ML VIAL IV PUSH PRN ×2 (16:34→22:34)
--- NOTE | 2016-10-08 17:34 | RAD ---
Indication: Transient ischemic attack. Image sequences: Sagittal and axial T1, axial T2, FLAIR, diffusion and susceptibility weighted images of the brain were obtained. Ventricular structures are midline. No midline shift is noted. The extra-axial spaces are unremarkable. There is central and cortical atrophy noted. The FLAIR images demonstrates multiple periventricular signal abnormalities consistent with chronic ischemic White matter change. No restriction of diffusion is noted. Motion artifact does degrade the images. Orbits, paranasal sinuses and mastoid air cells demonstrates fluid in the right mastoid air cells consistent with right-sided mastoid sinusitis. IMPRESSION: NO ACUTE CHANGES ARE NOTED ON DIFFUSION-WEIGHTED IMAGES. THERE IS DEEP WHITE MATTER CHANGES IN THE PERIVENTRICULAR AREAS BILATERALLY CONSISTENT WITH CHRONIC ISCHEMIC WHITE MATTER CHANGE. MOTION ARTIFACT DEGRADES THE IMAGES. LIKELY RIGHT-SIDED MASTOID SINUSITIS.
--- NOTE | 2016-10-08 19:59 | CONS ---
NEUROLOGY CONSULTATION: DATE OF CONSULT: 10/08/16 LOCATION: The patient is an inpatient. REQUESTING PROVIDER: Dr. Kimani Quiroz. HISTORY OF PRESENT ILLNESS: Malina Bonoe is a 71-year-old woman with a history of hypertension, diabetes, anxiety and depression, left MCA stroke in 2014 as well as TIAs previous to that, who presented to the emergency department after a brief episode of dysarthria. She was riding as a passenger in the car and her daughter was driving when she had acute onset of dysarthria. Her daughter pulled into the parking lot at [place] and the patient tried to get out of the car but seemed to be generally weak and the daughter helped her to the ground. There was a nurse nearby who assessed her and felt that she had facial weakness. Her daughter indicates that she had a "zoned" look, and prior to the onset of the slurred speech, she indicated that she was very sleepy and appeared tired. The daughter indicates that she appeared similarly prior to her stroke in the past. The patient herself has somewhat of an impaired memory for this event and in particular the duration of the dysarthria, but she denies losing consciousness during the event. There were no abnormal body movements noted. She denies any history of seizures in the past. Her daughter estimates that the dysarthria lasted less than 10 minutes. She was admitted for TIA/stroke workup. She underwent yesterday a CT of the brain as well as CTA of the head and neck. CT was negative for any acute process, but the CT angiogram showed luminal narrowing of the left M1 segment and decreased flow distally in the branches of the left M1 with a question of whether this could be chronic and related to her previous left MCA stroke versus a more acute process and contributing to the current symptoms. I confirmed today with the daughter and the patient that she has had this known narrowing of her intracranial circulation for a while and consideration has been given to the placement of an intracranial stent and the patient indicates she is scheduled to undergo some procedure in [place]. She cannot recall the name of her neurologist, but sees someone at [place] with the first name Gaby. She is on dual antiplatelet therapy with Plavix and aspirin currently. She felt back to baseline at this point. She indicates that she has some occasional difficulties with her right side after her stroke in 2014 and occasional word finding difficulties. She is right-handed. PAST MEDICAL HISTORY: 1. Left MCA stroke, 2015. 2. Multiple TIAs. 3. Type 2 diabetes. 4. Hypertension. 5. Hyperlipidemia. 6. Depression and anxiety. 7. Insomnia. HOME MEDICATIONS: 1. Simvastatin 40 mg daily. 2. Plavix 75 mg daily. 3. Levothyroxine 50 mcg daily. 4. Glyburide 5 mg daily. 5. Quetiapine 400 mg at bedtime. 6. Amitriptyline 10 mg at bedtime. 7. Aspirin 81 mg. 8. Metformin 500 mg b.i.d. 9. Paroxetine 30 mg daily. ALLERGIES: PROZAC causes rash and itching. FAMILY HISTORY: Father had a stroke in the past and had prostate cancer. Mother with coronary artery disease. SOCIAL HISTORY: She denies tobacco, alcohol, or drug use. She is . She lives alone in [place], but has been here visiting her daughter at the suggestion of her primary care doctor because of her depression. REVIEW OF SYSTEMS: As per the HPI, otherwise negative. PHYSICAL EXAM: Vital Signs: Temperature 98.7, blood pressure 150/49, heart rate 78, oxygen saturation is 99% on room air. On general examination, she was in no acute distress. Her heart within regular rate and rhythm with no murmurs, rubs, or gallops. Telemetry showed a sinus rhythm throughout her stay. Lungs are clear to auscultation bilaterally. On neurologic examination, she is fully awake, alert, and oriented. She makes occasional paraphasic errors and in particular she has consistent difficulty with saying the word slurred and instead says splurred. There is no significant dysarthria. On cranial nerve testing, her right pupil is irregularly shaped and she has had cataract replacement in the past. However both pupils are briskly reactive. Her versions are full, but with down gaze she has lateral deviation of the left eye and with left horizontal gaze, she seems to have some dysconjugation of her eyes but she indicates no diplopia which suggests this is a chronic finding. Waggoner are full to confrontation bilaterally. Facial sensation and musculature are full and symmetric. Hearing is intact to finger rub. Palate elevates symmetrically and the tongue is midline. Shoulder shrug is full and symmetric. On motor examination, she had some paratonia in the upper and lower extremities. Strength is relatively full in the upper and lower extremities. Sensation is intact to temperature in the upper and lower extremities. Reflexes are 2+ throughout with downgoing toes. There is no ataxia on [id number] or [id number] testing. Romberg is negative. She has difficulty raising on to her toes and her heels but is somewhat able to rock back on to her heels. Tandem gait was not tested. DIAGNOSTIC STUDIES/LAB DATA: Laboratory data reviewed includes a CBC which is entirely normal. CMP was relatively unremarkable aside from a low potassium of 3.2 which is 3.6 today. Her glucose was high at 184 on admission this morning, was 56 at 7:30 in the morning. Hemoglobin A1c is 6.8%. Cholesterol 126, triglycerides 126, LDL 50, HDL 51. Urinalysis showed trace leukocyte esterase, 1+ bacteria, and 1+ glucose. Her brain CT showed no acute finding, but was suggestive of chronic stigmata of small vessel disease. Her head CT angiogram showed findings as described above. Her MRI scan is pending. She has not yet had a transthoracic echocardiogram. IMPRESSION: Malina Boone is a 71-year-old woman with multiple vascular risk factors, on dual platelet therapy, with a previous history of left middle cerebral artery stroke and known left middle cerebral artery stenosis, who presented with transient dysarthria. She may have also had some transient right facial droop. She is back at her baseline at this point. This may have represented a transient ischemic attack and possibly referable to her known intracranial lesion. However, there is also description of some lethargy as well as possible diminished responsiveness which raises the question of a seizure as well. She had an EEG this morning which was essentially normal, though was somewhat suboptimal recording due to significant muscle artifact. She is going to undergo an MRI scan of the brain to look for any new areas of ischemia. She is continued on aspirin and Plavix at this point. It is unlikely that she would have experienced an episode of hypoglycemia leading to these symptoms, though that was considered as a possibility, because her blood glucose when she arrived was 184. I also considered whether she could have had transient hypoperfusion, for example, from transient hypotension which could have given rise to these symptoms. She does not seem to have any history of hypotension, if anything has been hypertensive since she has been here. I suggested that she have her CT angiogram burned on to a disc and take it with her when she is discharged for her followup in [place] with her neurologist. At this point, I would not change her antiplatelet regimen given her known intracranial stenosis. Further recommendations pending her MRI scan and echocardiogram as well. [id number]/[facility] #: [id number] MANOJ
[2016-10-08] MEDS ORDERED: QUEtiapine XR TAB* 300 MG PO SCH (21:00)
[2016-10-08] MEDS ORDERED: Insulin GLARGINE(*) 1 UNITS UNIT SUBCUT SCH (21:00)
[2016-10-08] MEDS: QUEtiapine XR TAB* 200 MG PO SCH (22:33)
[2016-10-08] MEDS: Amitriptyline TAB* 10 MG PO SCH (22:34)
[2016-10-09] MEDS: Heparin VIAL(*) 5000 UNITS/ML VIAL (FIVE THOUSAND) SUBCUT SCH ×3 (06:28→21:08)
[2016-10-09] MEDS: Insulin LISPRO* 1 UNITS UNIT SUBCUT SCH ×4 (07:36→21:40)
[2016-10-09] MEDS: Docusate CAP* 100 MG PO SCH ×2 (08:58→21:10)
[2016-10-09] MEDS: Atorvastatin* 20 MG TAB PO SCH (08:58)
[2016-10-09] MEDS: PARoxetine HCL TAB* 10 MG PO SCH (08:58)
[2016-10-09] MEDS: Clopidogrel TAB* 75 MG PO SCH (08:59)
[2016-10-09] MEDS: Levothyroxine TAB* 50 MCG TAB PO SCH (08:59)
[2016-10-09] MEDS ORDERED: CMC:Pantoprazole TAB (NF) 40 MG TAB PO SCH (09:00)
[2016-10-09] MEDS ORDERED: Aspirin EC Low Dose* 81 MG TAB.EC PO SCH (09:00)
--- NOTE | 2016-10-09 10:03 | EEG ---
ELECTROENCEPHALOGRAPHY: DATE OF STUDY: 10/08/16 LOCATION: The patient is an inpatient. ORDERING PHYSICIAN: Kimani Quiroz MD. HISTORY: This is a 71-year-old woman who has been staying with her daughter for the past week because she has been anxious and did not want to be alone. She was brought to the emergency room yesterday after the sudden onset of slurred speech around 6 p.m. She was riding in the car with her daughter. When the patient tried to get out of the car, her knees buckled. Reportedly, she had right facial droop. Episode lasted approximately 5 minutes. She has a past history of a left MCA stroke in 2015, depression, anxiety, insomnia, diabetes, hypertension, and hyperlipidemia. EEG is requested to evaluate for epileptiform abnormalities. MEDICATIONS: 1. Quetiapine. 2. Omeprazole. 3. Humalog. 4. Lantus. 5. Aspirin 325 mg. 6. Amitriptyline. 7. Paroxetine. DESCRIPTION: There was significant muscle artifact which partially obscured the background in many places during EEG. The patient was significantly anxious. The waking background overall showed appropriate organization with clearly-defined anterior to posterior voltage and frequency gradients. There was a well-defined posterior dominant rhythm of 9 Hz, which was symmetrical and showed normal reactivity. Anteriorly, there was an expected pattern of lower voltage, irregular, mixed faster frequencies. Photic stimulation and hyperventilation were not performed. Throughout the recording, there were no obvious epileptiform discharges, focal features, paroxysmal features, or significant interhemispheric asymmetries. IMPRESSION: This is a normal waking EEG. Some portions of the background were obscured by significant muscle artifact. There are no epileptiform abnormalities. [id number]/[facility] #: [id number] [facility]
--- NOTE | 2016-10-09 13:57 | PN ---
Subjective Date of Service: 10/09/16 Interval History: No more neuro sx's. She states she has had many episodes of aphasia similar to this one in the past. She had some suicidal ideation last night but no longer feels that way. She states she did try to commit suicide with pills about 20 yrs ago. She is not seeing a mental health specialist currently. Family History: Unchanged from Admission Social History: Unchanged from Admission Past Medical History: Unchanged from Admission Objective Active Medications: Acetaminophen (Tylenol Tab*) 650 mg PO Q6H PRN PRN Reason: FEVER/PAIN Amitriptyline HCl (Elavil Tab*) 10 mg PO BEDTIME [facility] Last Admin: 10/08/16 22:34 Dose: 10 mg Aspirin (Aspirin Ec Low Dose*) 81 mg PO DAILY [facility] Last Admin: 10/09/16 08:58 Dose: 81 mg Atorvastatin Calcium (Lipitor*) 20 mg PO DAILY [facility] Last Admin: 10/09/16 08:58 Dose: 20 mg Clopidogrel Bisulfate (Plavix Tab*) 75 mg PO DAILY [facility] Last Admin: 10/09/16 08:59 Dose: 75 mg Docusate Sodium (Colace Cap*) 200 mg PO BID [facility] Last Admin: 10/09/16 08:58 Dose: 200 mg Heparin Sodium (Porcine) (Heparin Vial(*)) 5,000 units SUBCUT Q8HR [facility] Last Admin: 10/09/16 13:26 Dose: 5,000 units Sodium Chloride (Ns 0.9% 1000 Ml*) 1,000 mls @ 50 mls/hr IV PER RATE [facility] Last Admin: 10/08/16 23:48 Dose: 50 mls/hr Insulin Glargine (Lantus(*)) 15 units SUBCUT 2100 [facility] Last Admin: 10/08/16 23:49 Dose: 15 units Insulin Human Lispro (Humalog*) 0 units SUBCUT ACHS [facility] PRN Reason: Protocol Last Admin: 10/09/16 12:33 Dose: 2 unit Levothyroxine Sodium (Synthroid Tab*) 50 mcg PO DAILY [facility] Last Admin: 10/09/16 08:59 Dose: 50 mcg Lorazepam (Ativan Inj*) 1 mg IV PUSH Q6H PRN PRN Reason: Anxiety/MRI Last Admin: 10/08/16 22:34 Dose: 1 mg Lorazepam (Ativan Tab(*)) 0.5 mg PO BEDTIME PRN PRN Reason: INSOMNIA Last Admin: 10/08/16 21:17 Dose: 0.5 mg Ondansetron HCl (Zofran Inj*) 4 mg IV Q6H PRN PRN Reason: NAUSEA Pantoprazole Sodium (Protonix Tab (Nf)) 40 mg PO DAILY [facility] Last Admin: 10/09/16 08:58 Dose: 40 mg Paroxetine HCl (Paxil Tab*) 30 mg PO DAILY [facility] Last Admin: 10/09/16 08:58 Dose: 30 mg Quetiapine Fumarate (Seroquel Xr Tab*) 400 mg PO BEDTIME [facility] Last Admin: 10/08/16 22:33 Dose: 400 mg Vital Signs 10/08/16 10/08/16 10/08/16 16:34 17:34 19:28 Temperature 98.2 F Pulse Rate 73 Respiratory 20 15 18 Rate Blood Pressure 145/64 (mmHg) O2 Sat by Pulse 97 Oximetry 10/08/16 10/08/16 10/08/16 20:00 21:17 22:34 Temperature Pulse Rate Respiratory 18 20 20 Rate Blood Pressure (mmHg) O2 Sat by Pulse Oximetry 10/08/16 10/08/16 10/08/16 23:17 23:34 23:56 Temperature 98.2 F Pulse Rate 71 Respiratory 16 16 18 Rate Blood Pressure 88/62 (mmHg) O2 Sat by Pulse 95 Oximetry 10/09/16 10/09/16 10/09/16 04:28 08:13 09:03 Temperature 97.2 F 97.5 F Pulse Rate 62 62 Respiratory 16 16 16 Rate Blood Pressure 169/66 108/48 (mmHg) O2 Sat by Pulse 96 98 Oximetry 10/09/16 10/09/16 09:05 12:19 Temperature 97.9 F Pulse Rate 106 Respiratory 16 16 Rate Blood Pressure 124/66 (mmHg) O2 Sat by Pulse 99 Oximetry Oxygen Devices in Use Now: None Appearance: Alert, on her side in bed. Flat affect. Looks comfortable. Eyes: No Scleral Icterus Respiratory: Symmetrical Chest Expansion and Respiratory Effort, Clear to Auscultation, Clear to Percussion Cardiovascular: NL Sounds; No Murmurs; No JVD, RRR, No Edema, - Extremities: No Edema, No Clubbing, Cyanosis, - Skin: No Rash or Ulcers, No Nodules or Sclerosis, - Neurological: Alert and Oriented x 3, NL Sensation - Face symmetric. Speech fluent, appropriate. No tremor. Result Diagrams: 10/07/16 19:23 10/08/16 05:17 Additional Lab and Data: Lab Results 10/07/16 10/07/16 10/07/16 Range/Units 19:23 19:23 19:23 WBC 7.9 (3.5-10.8) 10^3/ul RBC 4.50 (4.0-5.4) 10^6/ul Hgb 12.0 (12.0-16.0) g/dl Hct 36 (35-47) % MCV 81 (80-97) fL MCH 27 (27-31) pg MCHC 33 (31-36) g/dl RDW 13 (10.5-15) % Plt Count 215 (150-450) 10^3/ul MPV 9 (7.4-10.4) um3 Neut % (Auto) 63.7 (38-83) % Lymph % (Auto) 27.7 (25-47) % [place] % (Auto) 6.7 (1-9) % Eos % (Auto) 1.4 (0-6) % Baso % (Auto) 0.5 (0-2) % Absolute Neuts (auto) 5.0 (1.5-7.7) 10^3/ul Absolute Lymphs (auto) 2.2 (1.0-4.8) 10^3/ul Absolute Monos (auto) 0.5 (0-0.8) 10^3/ul Absolute Eos (auto) 0.1 (0-0.6) 10^3/ul Absolute Basos (auto) 0 (0-0.2) 10^3/ul Absolute Nucleated RBC 0.04 10^3/ul Nucleated RBC % 0.5 INR (Anticoag Therapy) 0.86 L (0.89-1.11) APTT 27.5 (26.0-36.3) seconds Sodium 134 (133-145) mmol/L Potassium 3.2 L (3.5-5.0) mmol/L Chloride 102 (101-111) mmol/L Carbon Dioxide 23 (22-32) mmol/L Anion Gap 9 (2-11) mmol/L BUN 15 (6-24) mg/dL Creatinine 0.75 (0.51-0.95) mg/dL Est GFR ( Amer) 98.5 (>60) Est GFR (Non-Af Amer) 76.6 (>60) BUN/Creatinine Ratio 20.0 (8-20) Glucose 184 H (70-100) mg/dL Lactic Acid (0.5-2.0) mmol/L Calcium 9.1 (8.6-10.3) mg/dL Total Bilirubin 0.50 (0.2-1.0) mg/dL AST 18 (13-39) U/L ALT 15 (7-52) U/L Alkaline Phosphatase 56 (34-104) U/L Troponin I 0.02 (<0.04) ng/mL Total Protein 6.5 (6.4-8.9) g/dL Albumin 3.9 (3.2-5.2) g/dL Globulin 2.6 (2-4) g/dL Albumin/Globulin Ratio 1.5 (1-3) Triglycerides 126 mg/dL Cholesterol 126 mg/dL LDL Cholesterol 50 mg/dL HDL Cholesterol 51.0 mg/dL Urine Color Urine Appearance Urine pH (5-9) Ur Specific Orange (1.010-1.030) Urine Protein (Negative) Urine Ketones (Negative) Urine Blood (Negative) Urine Nitrate (Negative) Urine Bilirubin (Negative) Urine Urobilinogen (Negative) Ur Leukocyte Esterase (Negative) Urine WBC (Auto) (Absent) Urine RBC (Auto) (Absent) Ur Squamous Epith Cells (Absent) Urine Bacteria (Absent) Urine Glucose (Negative) Blood Type Antibody Screen 10/07/16 10/07/16 10/07/16 Range/Units 19:23 19:23 22:00 WBC (3.5-10.8) 10^3/ul RBC (4.0-5.4) 10^6/ul Hgb (12.0-16.0) g/dl Hct (35-47) % MCV (80-97) fL MCH (27-31) pg MCHC (31-36) g/dl RDW (10.5-15) % Plt Count (150-450) 10^3/ul MPV (7.4-10.4) um3 Neut % (Auto) (38-83) % Lymph % (Auto) (25-47) % [place] % (Auto) (1-9) % Eos % (Auto) (0-6) % Baso % (Auto) (0-2) % Absolute Neuts (auto) (1.5-7.7) 10^3/ul Absolute Lymphs (auto) (1.0-4.8) 10^3/ul Absolute Monos (auto) (0-0.8) 10^3/ul Absolute Eos (auto) (0-0.6) 10^3/ul Absolute Basos (auto) (0-0.2) 10^3/ul Absolute Nucleated RBC 10^3/ul Nucleated RBC % INR (Anticoag Therapy) (0.89-1.11) APTT (26.0-36.3) seconds Sodium (133-145) mmol/L Potassium (3.5-5.0) mmol/L Chloride (101-111) mmol/L Carbon Dioxide (22-32) mmol/L Anion Gap (2-11) mmol/L BUN (6-24) mg/dL Creatinine (0.51-0.95) mg/dL Est GFR ( Amer) (>60) Est GFR (Non-Af Amer) (>60) BUN/Creatinine Ratio (8-20) Glucose (70-100) mg/dL Lactic Acid 0.9 (0.5-2.0) mmol/L Calcium (8.6-10.3) mg/dL Total Bilirubin (0.2-1.0) mg/dL AST (13-39) U/L ALT (7-52) U/L Alkaline Phosphatase (34-104) U/L Troponin I (<0.04) ng/mL Total Protein (6.4-8.9) g/dL Albumin (3.2-5.2) g/dL Globulin (2-4) g/dL Albumin/Globulin Ratio (1-3) Triglycerides mg/dL Cholesterol mg/dL LDL Cholesterol mg/dL HDL Cholesterol mg/dL Urine Color Straw Urine Appearance Clear Urine pH 5.0 (5-9) Ur Specific Orange 1.023 (1.010-1.030) Urine Protein Negative (Negative) Urine Ketones Negative (Negative) Urine Blood Negative (Negative) Urine Nitrate Negative (Negative) Urine Bilirubin Negative (Negative) Urine Urobilinogen Negative (Negative) Ur Leukocyte Esterase Trace H (Negative) Urine WBC (Auto) Trace(0-5/hpf) (Absent) Urine RBC (Auto) Trace(0-2/hpf) (Absent) Ur Squamous Epith Cells Present H (Absent) Urine Bacteria 1+ H (Absent) Urine Glucose 1+(50 mg/dl) H (Negative) Blood Type A Negative Antibody Screen Negative Assess/Plan/Problems-Billing Assessment: TIA/CVA in a 71 yo F with hx of CVA, HTN, HLD, DM2, depression/anxiety - Patient Problems (1) TIA (transient ischemic attack) Current Visit: Yes Status: Acute Comment: -monitoring. Patient is on ASA/ Plavix at home, will continue for now. Continue ASA, clopidogrel, statin. (2) Hypothyroid Current Visit: Yes Status: Acute Code(s): E03.9 - HYPOTHYROIDISM, UNSPECIFIED SNOMED Code(s): 96535663 Comment: TSH wnl 10/08/16. COntinue home dose levothyroxine. (3) Diabetes Current Visit: Yes Status: Acute Code(s): E11.9 - TYPE 2 DIABETES MELLITUS WITHOUT COMPLICATIONS SNOMED Code(s): 88794531 Comment: On transfer to [facility], have stopped Lantus. Start glipizide 6/24 AM once daily in place of glyburide as the shorter half-life might reduce the risk of hypoglycemia. If glycemic contol is not good on once-daily glipizide, it can be increased to 5 mg 8A-5P bid. Status and Disposition: Patient transfered to U as per Dr. Aguila.
[2016-10-09] MEDS: Amitriptyline TAB* 10 MG PO SCH (21:10)
[2016-10-09] MEDS: QUEtiapine XR TAB* 200 MG PO SCH (21:10)
[2016-10-09 21:31] VITALS: BP 158/61
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
[2016-10-10] MEDS ORDERED: glyBURIDE TAB* 5 MG PO SCH (09:00)
[2016-10-10] MEDS ORDERED: glipiZIDE TAB* 5 MG PO SCH (09:00)
--- NOTE | 2016-10-10 11:28 | PN ---
PROGRESS NOTE: DATE OF FOLLOWUP: 10/09/16 - ROOM #433 OVERNIGHT EVENTS: The patient expressed suicidal ideation last night. According to her daughter, who came back to the hospital when she was called about her mother feeling suicidal, the patient was agitated and it sounds like she was sundowning somewhat. She thought it was morning, when it was actually nighttime and she was very agitated in bed. She has, in the past, expressed suicidal ideations and, 20 years ago, was in and out of psychiatric care related to this; but, Ms. Boone's daughter indicates she has been relatively stable up until more recently. She had no recurrence of neurologic symptoms otherwise, overnight. MEDICATIONS: Include: 1. Elavil 10 mg at bedtime. 2. Aspirin 81 mg. 3. Plavix 75 mg. 4. Lipitor 20 mg. 5. Synthroid 50 mcg. 6. Lorazepam. 7. Protonix. 8. Paxil 30 mg daily. 9. Seroquel 400 mg at bedtime. PHYSICAL EXAMINATION: Vital Signs: Temperature 97.9, blood pressure 124/66, heart rate 106, but earlier today was in the 60s to 70s, oxygen saturation 99% on room air. Telemetry was reviewed and there is no evidence for atrial fibrillation. The patient was sleeping when I entered the room. I did not wake her for a formal exam. DATA: MRI scan was personally reviewed and was negative for any acute infarction. There is evidence of bilateral small vessel disease which is greater on the left and there is some encephalomalacia and the deep white matter consistent with an old infarct in left MCA tertiary. Transthoracic echocardiogram showed an ejection fraction of 55% to 60% with mild dilation of the left atrium and no evidence for PFO. IMPRESSION: Malina Boone is a 71-year-old woman with a history of left M1 stenosis who presented with a brief episode of dysarthria and generalized weakness. There has been no evidence for new stroke. Her symptoms could have been referable to hypoperfusion of the left MCA territory, though, only dysarthria is described and not necessarily aphasia. In addition, it is not clear that she had any lateralized weakness with her episode yesterday but rather was noted to have generalized weakness. Still thinks she should continue on her dual antiplatelet therapy and follow up with her neurologist in [place] as an outpatient. The daughter has obtained the CT angiogram on disc and they will bring this to their follow up appointment there. [id number]/[facility] #: [id number] MANOJ
== END 2016-10-09 22:30 ==
LOC: EDBD → ED 18:47 → MEDTELE 23:35 → UNDOADMOB 10-08 00:02 → INTOOBSV 10-08 16:10 → OBSVTOIN 10-08 16:10
PROVIDERS: ADMIT Hospitalist; ATTEND Internal Medicine
DX: G45.9 Transient cerebral ischemic attack, unspecified (principal); E11.9 Type 2 diabetes mellitus without complications; I10 Essential (primary) hypertension; E78.5 Hyperlipidemia, unspecified; F32.9 Major depressive disorder, single episode, unspecified; F41.9 Anxiety disorder, unspecified; E03.9 Hypothyroidism, unspecified; G47.00 Insomnia, unspecified; I51.7 Cardiomegaly; Z79.899 Other long term (current) drug therapy; Z79.4 Long term (current) use of insulin; F09 Unspecified mental disorder due to known physiological condition
CPT/HCPCS: 36415; 70450; 70496; 70498; 70551; 71010; 80048; 80053; 80061; 81003; 81015; 83036; 83605; 84443; 84484; 85025; 85610; 85730; 86850; 86900; 86901; 87086; 93005; 93306; 94760; 95816; 96361; 96372; 96374; 96376; 99291; A9270-GY; G0378; J1644; J2060; Q9967

== ENCOUNTER 2016-10-09 17:53 | Inpatient (IN) | payer MEDICARE ==
[2016-10-10] MEDS ORDERED: Acetaminophen TAB* 325 MG PO PRN (00:35)
[2016-10-10] MEDS ORDERED: Al Hydrox/Mg Hydrox/Simet LIQ* 30 ML UDC PO PRN (00:35)
[2016-10-10] MEDS ORDERED: LORazepam TAB(*) 0.5 MG PO PRN (00:48)
[2016-10-10] MEDS: Levothyroxine TAB* 50 MCG TAB PO SCH (10:19)
[2016-10-10] MEDS: Aspirin Low Dose CHEW TAB* 81 MG PO SCH (10:19)
[2016-10-10] MEDS: glipiZIDE TAB* 5 MG PO SCH (10:20)
[2016-10-10] MEDS: Clopidogrel TAB* 75 MG PO SCH (10:20)
[2016-10-10] MEDS: CMCS: Pantoprazole TAB (NF) 40 MG TAB PO SCH (10:20)
[2016-10-10] MEDS: PARoxetine HCL TAB* 10 MG PO SCH (10:20)
[2016-10-10] MEDS: Docusate CAP* 100 MG PO SCH ×2 (10:20→20:33)
[2016-10-10] MEDS: Insulin LISPRO* 1 UNITS UNIT SUBCUT SCH ×4 (10:34→20:41)
--- NOTE | 2016-10-10 14:10 | ADMNOTE ---
Identification - Identify Employment Status: Unemployed Hx Psychiatric Hospitalization: Yes History - Objective HPI: I reviewed Dr Aguila's sign-out and consultation from yesterday. Pt was transferred to the [facility] last night. I reviewed staff notes since being transferred back. I met with her with her daughter (Amanda) present. We briefly reviewed events leading to hospitalization. She notes increased depression and anxiety since Seroquel was decreased from 600mg to 300mg about 1 month ago. This was following hospitalization when Lunesta was discontinued. She reports a psychiatric hospitalization at [facility] in [place] for panic about 4 years ago, something her daughter wasn't aware of. Current mood is "nervous" and rates depression as 9/10 and anxiety as 8/10 (10 being the worst). Slept "okay" but notes taking lorazepam. Daytime energy is "so so." Didn't eat breakfast but had some lunch. Notes feeling jittery, glucose level was ~150. Notes sore tailbone. Denies other physical complaints. Denies any acute confusion. Is oriented to location and date. Denies hallucinations. Denies SI or thoughts of self-harm. Notes regarding past meds: Lunesta-stopped due to stroke like symptoms; trazodone-didn't work; fluoxetine- allergic; sertraline-sweating. Exam Appearance: Obese Hygiene: Normal Grooming: Fairly Well Kept Psychomotor Activities: Abnormal-Increased - tremor Exhibits Abnormal Movement: Yes Attitude and Relatedness: Cooperative Eye Contact: Fair - Speech Quality: Unpressured Latencies: Normal Quantity: Terse - repetitive, speech impediment Patient's Decription of Mood: "nervous" Observed Affect: Fair Affect Consistent with: Dysphoria - anxious Patient's Thought Process: Coherent - ruminative Thought Content: No Passive Wish, No Suicidal Planning, No Homicidal Ideation, No Paranoid Ideation Experiencing Hallucinations: No, Sensorium is Clear Level of Consciousness: Alert Orientation: Yes Intact, Yes Orientated to Time, Yes Orientated to Place, Yes Orientated to Person Impulse Control: Intact Insight and Judgement: Fair Impression - Impression Clinical Impression: 71yo female with a hx of learning disability,anxiety,depression, distant suicide attempt and past psychiatric hospitalizations transferred from Medicine/ Neuro after being admitted for evaluation for TIA. She has been transferred to the [facility] for increase in depression and expressing SI. Increase in depression coincides with recent decrease in quetiapine. - Hasty I Mental Illness: Depression Unspecified. hx of learning disability. Neurocognitive D/o Unspecified - Hasty III Medical Illness: recent TIA Plan - Treatment Plan Treatment Plan: - recommend continuing higher dose of Seroquel (400mg po qhs) for a couple days. She first got the higher dose last night. Consider increasing further if depression and anxiety remain elevated - continue Paxil. Consider switching to Lexapro - to hold lorazapem and switch to mirtazapine 15mg po qhs prn. This will reduce the risk of falls/delirium. We discussed risks/side effects, she understands these risks, and consents to take the medication at this time. - refer to local mental health providers as she will be spending more time in the [facility]. I would recommend starting to see a psychiatrist again. - recommend speaking with daughter about who manages her medications. She seemed confused about her meds and I think she is at risk for poor medication adherence. - to continue other medications. Please be aware Dr Ramirez recently recommended changing diabetes meds (which I have done) Medications: Current Medications Acetaminophen (Tylenol Tab*) 650 mg PO Q4H PRN PRN Reason: PAIN or TEMP > 101 F Al Hydrox/Mg Hydrox/Simethicone (Maalox Plus*) 30 ml PO Q4H PRN PRN Reason: INDIGESTION Amitriptyline HCl (Elavil Tab*) 10 mg PO BEDTIME [facility] Aspirin (Aspirin Low Dose Tab*) 81 mg PO DAILY [facility] Last Admin: 10/10/16 10:19 Dose: 81 mg Clopidogrel Bisulfate (Plavix Tab*) 75 mg PO DAILY [facility] Last Admin: 10/10/16 10:20 Dose: 75 mg Docusate Sodium (Colace Cap*) 200 mg PO BID [facility] Last Admin: 10/10/16 10:20 Dose: 200 mg Glipizide (Glucotrol Tab*) 5 mg PO DAILY [facility] Last Admin: 10/10/16 10:20 Dose: 5 mg Insulin Human Lispro (Humalog*) 0 units SUBCUT ACHS [facility] PRN Reason: Protocol Last Admin: 10/10/16 12:03 Dose: 1 unit Levothyroxine Sodium (Synthroid Tab*) 50 mcg PO 0600 [facility] Last Admin: 10/10/16 10:19 Dose: 50 mcg Lorazepam (Ativan Tab(*)) 0.5 mg PO BEDTIME PRN PRN Reason: ANXIETY Last Admin: 10/09/16 23:10 Dose: 0.5 mg Pantoprazole Sodium (Protonix Tab (Nf)) 40 mg PO DAILY [facility] Last Admin: 10/10/16 10:20 Dose: 40 mg Paroxetine HCl (Paxil Tab*) 30 mg PO DAILY [facility] Last Admin: 10/10/16 10:20 Dose: 30 mg Quetiapine Fumarate (Seroquel Xr Tab*) 400 mg PO BEDTIME [facility]
[2016-10-10] MEDS: Amitriptyline TAB* 10 MG PO SCH (20:33)
[2016-10-10] MEDS: QUEtiapine XR TAB* 200 MG PO SCH (20:33)
[2016-10-10] MEDS: Mirtazapine TAB* 15 MG PO PRN (20:34)
[2016-10-10] MEDS ORDERED: Insulin GLARGINE(*) 1 UNITS UNIT SUBCUT SCH (21:00)
[2016-10-11] MEDS: Insulin LISPRO* 1 UNITS UNIT SUBCUT SCH ×4 (08:01→20:29)
[2016-10-11] MEDS: Levothyroxine TAB* 50 MCG TAB PO SCH (09:53)
[2016-10-11] MEDS: Docusate CAP* 100 MG PO SCH ×2 (09:53→20:30)
[2016-10-11] MEDS: Aspirin Low Dose CHEW TAB* 81 MG PO SCH (09:54)
[2016-10-11] MEDS: glipiZIDE TAB* 5 MG PO SCH (09:54)
[2016-10-11] MEDS: Clopidogrel TAB* 75 MG PO SCH (09:54)
[2016-10-11] MEDS: Atorvastatin* 20 MG TAB PO SCH (09:54)
[2016-10-11] MEDS: PARoxetine HCL TAB* 10 MG PO SCH (09:54)
[2016-10-11] MEDS: CMCS: Pantoprazole TAB (NF) 40 MG TAB PO SCH (09:55)
[2016-10-11] MEDS: Amitriptyline TAB* 10 MG PO SCH (20:30)
[2016-10-11] MEDS: Mirtazapine TAB* 15 MG PO PRN (20:30)
[2016-10-11] MEDS: QUEtiapine XR TAB* 200 MG PO SCH (20:31)
[2016-10-12] MEDS: Docusate CAP* 100 MG PO SCH ×2 (08:40→20:01)
[2016-10-12] MEDS: Clopidogrel TAB* 75 MG PO SCH (08:40)
[2016-10-12] MEDS: Atorvastatin* 20 MG TAB PO SCH (08:41)
[2016-10-12] MEDS: PARoxetine HCL TAB* 10 MG PO SCH (08:41)
[2016-10-12] MEDS: glipiZIDE TAB* 5 MG PO SCH (08:41)
[2016-10-12] MEDS: Levothyroxine TAB* 50 MCG TAB PO SCH (08:41)
[2016-10-12] MEDS: Aspirin Low Dose CHEW TAB* 81 MG PO SCH (08:41)
[2016-10-12] MEDS: CMCS: Pantoprazole TAB (NF) 40 MG TAB PO SCH (08:42)
[2016-10-12] MEDS: Insulin LISPRO* 1 UNITS UNIT SUBCUT SCH ×4 (09:03→20:02)
--- NOTE | 2016-10-12 10:35 | PN ---
Subjective - Subjective Service Type: 27726 Hosp care 15 min low complexity Subjective: [place] notes high distress. Identifies as anxious and sad, with no ability to self sooth, gain perspective, or cope. She focuses on medication, superficially agreeing with plan to resume higher dose Seroquel, and make Remeron standing; but asks for medicine that will immediately stop her problem. I offered short term hydroxzyzine use for anxiety , and tried to provide reasonable expectations and support. She endorses passive wishes. Objective - Appearance Appearance: Well Developed/Nourished Hygiene: Normal Grooming: Fairly Well Kept - Behavior Psychomotor Activities: Abnormal-Increased - Attitude and Relatedness Attitude and Relatedness: Child Like Eye Contact: Good - Speech Quality: Unpressured Latencies: Normal Quantity: Appropriate - Mood Patient's Decription of Mood: "Terrible" - Affect Observed Affect: Labile Affect Consistent with: Dysphoria - Thought Process Patient's Thought Process: Coherent, Goal Directed, Impoverished Thought Content: No Passive Wish, No Suicidal Planning, No Homicidal Ideation, No Paranoid Ideation - Sensorium Experiencing Hallucinations: No, Sensorium is Clear - Level of Consciousness Level of Consciousness: Alert - Impulse Control Impulse Control: Intact - Insight and Judgement Insight and Judgement: Poor Assessment - Assessment Merits Inpatient Hospitalization: For Immediate Safety, For Stabilization, Diagnosis Determination, To Initiate Treatment, For Ongoing Evaluation, For Discharge Planning, Pending Safe DC Plan Inpatient DSM-IV Dx: 1. Cognitive disorder, not otherwise specified. 2. Major depressive disorder, not otherwise specified. 3. Anxiety disorder, not otherwise specified. Clinical Impression: 71-year-old female with a remote history of multiple psychiatric hospitalizations, suicide attempt, and chronic anxiety and depression, along with cognitive dysfunction, previous learning disorder and TIAs. She was admitted from the hospitalist service, where she was evaluated with a TIA. Psychiatrically, she presents with an apparent history of increased depressive symptoms and anxiety of about 1 month's duration, which has coincided with the decrease in Seroquel. Additionally, she has had some cognitive changes over many months. Concern centers on her expression of suicidal ideation after basically doing well for 20 years. Settling into the unit, with ongoing high distress and symptoms. Has high anxiety and emotional discomfort, mood lability, and rudimentary coping abilities. Is safe on checks, but expresses passive suicidal thoughts. Medication management: will continue with the outpatient regimen, providing higher dose Seroquel *. Also we added Remeron for adjunct tx., and will provide low dose hydroxyzine PRN anxiety. * Her crisis coincided with lowering Seroquel dose. While most people tolerate stopping Seroquel okay, there are case reports of people who have had profound discontinuation reactions - reasonable to return to prior dosing and see. We are providing somatic regimen as adjusted by hospitalist on her stay on that service. Plan - Plan Treatment Plan: Name: KASHMIR PATEL Birthdate: 1945 [id number] Continued Medication Management: Start Medication Medications: Current Medications Acetaminophen (Tylenol Tab*) 650 mg PO Q4H PRN PRN Reason: PAIN or TEMP > 101 F Al Hydrox/Mg Hydrox/Simethicone (Maalox Plus*) 30 ml PO Q4H PRN PRN Reason: INDIGESTION Amitriptyline HCl (Elavil Tab*) 10 mg PO BEDTIME [facility] Last Admin: 10/11/16 20:30 Dose: 10 mg Aspirin (Aspirin Low Dose Tab*) 81 mg PO DAILY [facility] Last Admin: 10/12/16 08:41 Dose: 81 mg Atorvastatin Calcium (Lipitor*) 20 mg PO DAILY [facility] Last Admin: 10/12/16 08:41 Dose: 20 mg Clopidogrel Bisulfate (Plavix Tab*) 75 mg PO DAILY [facility] Last Admin: 10/12/16 08:40 Dose: 75 mg Docusate Sodium (Colace Cap*) 200 mg PO BID [facility] Last Admin: 10/12/16 08:40 Dose: 200 mg Glipizide (Glucotrol Tab*) 5 mg PO DAILY [facility] Last Admin: 10/12/16 08:41 Dose: 5 mg Insulin Human Lispro (Humalog*) 0 units SUBCUT ACHS [facility] PRN Reason: Protocol Last Admin: 10/12/16 09:03 Dose: 1 unit Levothyroxine Sodium (Synthroid Tab*) 50 mcg PO 0600 [facility] Last Admin: 10/12/16 08:41 Dose: 50 mcg Mirtazapine (Remeron Tab*) 15 mg PO BEDTIME PRN PRN Reason: SLEEP Last Admin: 10/11/16 20:30 Dose: 15 mg Pantoprazole Sodium (Protonix Tab (Nf)) 40 mg PO DAILY [facility] Last Admin: 10/12/16 08:42 Dose: 40 mg Paroxetine HCl (Paxil Tab*) 30 mg PO DAILY [facility] Last Admin: 10/12/16 08:41 Dose: 30 mg Quetiapine Fumarate (Seroquel Xr Tab*) 400 mg PO BEDTIME [facility] Last Admin: 10/11/16 20:31 Dose: 400 mg - Discharge Plan Discharge Plan: Outpatient Follow Up
[2016-10-12] MEDS: hydrOXYzine HCL TAB* 10 MG PO PRN ×3 (11:18→20:18)
[2016-10-12] MEDS: QUEtiapine XR TAB* 200 MG PO SCH (20:01)
[2016-10-12] MEDS: Mirtazapine TAB* 15 MG PO SCH (20:04)
[2016-10-12] MEDS: QUEtiapine XR TAB* 300 MG PO SCH (20:04)
[2016-10-12] MEDS: Amitriptyline TAB* 10 MG PO SCH (20:04)
[2016-10-13] MEDS: Insulin LISPRO* 1 UNITS UNIT SUBCUT SCH ×4 (07:45→20:45)
[2016-10-13] MEDS: Atorvastatin* 20 MG TAB PO SCH (08:26)
[2016-10-13] MEDS: Levothyroxine TAB* 50 MCG TAB PO SCH (08:27)
[2016-10-13] MEDS: Clopidogrel TAB* 75 MG PO SCH (08:27)
[2016-10-13] MEDS: Docusate CAP* 100 MG PO SCH ×2 (08:27→20:45)
[2016-10-13] MEDS: glipiZIDE TAB* 5 MG PO SCH (08:27)
[2016-10-13] MEDS: Aspirin Low Dose CHEW TAB* 81 MG PO SCH (08:27)
[2016-10-13] MEDS: PARoxetine HCL TAB* 10 MG PO SCH (08:27)
[2016-10-13] MEDS: CMCS: Pantoprazole TAB (NF) 40 MG TAB PO SCH (08:28)
--- NOTE | 2016-10-13 12:00 | PN ---
MHU: Group Therapy Note - Service Type Service Type: 34080 Group Psychotherapy - Cognitive Behavioral Group Therapy ( CBT):Patient was attentive and participatory in CBT programming this morning, and remained in good behavioral control. Patient expressed positive insights regarding relevant treatment interventions and goals.
[2016-10-13] MEDS: hydrOXYzine HCL TAB* 10 MG PO PRN ×2 (12:56→17:14)
--- NOTE | 2016-10-13 17:39 | PN ---
Subjective - Subjective Service Type: 34064 Hosp care 15 min low complexity Subjective: Patient is bright in affect and engages the interview. Patient reports she will be moving in with her daughter while her appt in [place] is packed up and she is able to find an apartment in a residential community. Patient is noted to be more visible in the milieu over the last 24hrs. She is noted to have participated well in groups today. Patient reports she her mood as "I'm good today". Patient identifies moving in with her daughter and her family as the boosting factor. Patient reports she loss her 2 years ago and has dealt with significant depression since. She also reports recent medical issues including hx of CVA and a recent TIA. Patient also endorses a drop in mood after her Seroquel dose was decreased from 600mg daily to 300mg. Patient reports fair sleep and appetite. Patient reports med compliance and reports benefit on current regimen. Patient denies SI today. She denies HI and AH/VH. Objective - Appearance Appearance: Well Developed/Nourished Dysmorphic Features: No Hygiene: Normal Grooming: Fairly Well Kept - Behavior Psychomotor Activities: Normal Exhibits Abnormal Movement: No - Attitude and Relatedness Attitude and Relatedness: Cooperative Eye Contact: Good - Speech Quality: Unpressured Latencies: Normal Quantity: Appropriate - Mood Patient's Decription of Mood: "Good" - Affect Observed Affect: Euphoric Affect Consistent with: Euthymia - Thought Process Patient's Thought Process: Coherent Thought Content: No Passive Wish, No Suicidal Planning, No Homicidal Ideation, No Paranoid Ideation - Sensorium Experiencing Hallucinations: No, Sensorium is Clear Type of Hallucinations: Visual: No, Auditory: No, Command: No - Level of Consciousness Level of Consciousness: Alert Orientation: Yes Intact, Yes Orientated to Time, Yes Orientated to Place, Yes Orientated to Person - Impulse Control Impulse Control: Intact - Insight and Judgement Insight and Judgement: Fair - Group Participation Particating in Group Activities: Yes - Medication Management Medication Management Adherence: Yes Assessment - Assessment Inpatient DSM-IV Dx: 1. Cognitive disorder, not otherwise specified. 2. Major depressive disorder, not otherwise specified. 3. Anxiety disorder, not otherwise specified. Clinical Impression: 71yo female patient with recent loss of her 2 years ago, chronic inflammatory medical issues, intellectual disability and recent medication change. She presents with worsening depressive symptoms and SI, no plan. Patient identifies her Seroquel dose change as the triggering event to her decompensation. Patient is back on Seroquel and is noticing benefit to mood. Patient's daughter has opened her home to patient after discharge, until patient is able to find residence in a residential facility. Plan - Plan Treatment Plan: Name: KASHMIR PATEL Birthdate: 1945 [id number] 1. Continue admission to [facility]. 2. Continue current psychotropic med regimen. 3. Discharge planning tomorrow with 4. Patient to continue participating in milieu activities and attending groups. Medications: Current Medications Acetaminophen (Tylenol Tab*) 650 mg PO Q4H PRN PRN Reason: PAIN or TEMP > 101 F Al Hydrox/Mg Hydrox/Simethicone (Maalox Plus*) 30 ml PO Q4H PRN PRN Reason: INDIGESTION Amitriptyline HCl (Elavil Tab*) 10 mg PO BEDTIME [facility] Last Admin: 10/12/16 20:04 Dose: 10 mg Aspirin (Aspirin Low Dose Tab*) 81 mg PO DAILY [facility] Last Admin: 10/13/16 08:27 Dose: 81 mg Atorvastatin Calcium (Lipitor*) 20 mg PO DAILY [facility] Last Admin: 10/13/16 08:26 Dose: 20 mg Clopidogrel Bisulfate (Plavix Tab*) 75 mg PO DAILY [facility] Last Admin: 10/13/16 08:27 Dose: 75 mg Docusate Sodium (Colace Cap*) 200 mg PO BID [facility] Last Admin: 10/13/16 08:27 Dose: 200 mg Glipizide (Glucotrol Tab*) 5 mg PO DAILY [facility] Last Admin: 10/13/16 08:27 Dose: 5 mg Hydroxyzine HCl (Atarax Tab*) 10 mg PO Q4H PRN PRN Reason: ANXIETY Last Admin: 10/13/16 17:14 Dose: 10 mg Insulin Human Lispro (Humalog*) 0 units SUBCUT ACHS [facility] PRN Reason: Protocol Last Admin: 10/13/16 16:43 Dose: 4 unit Levothyroxine Sodium (Synthroid Tab*) 50 mcg PO 0600 [facility] Last Admin: 10/13/16 08:27 Dose: 50 mcg Mirtazapine (Remeron Tab*) 15 mg PO BEDTIME [facility] Last Admin: 10/12/16 20:04 Dose: 15 mg Pantoprazole Sodium (Protonix Tab (Nf)) 40 mg PO DAILY [facility] Last Admin: 10/13/16 08:28 Dose: 40 mg Paroxetine HCl (Paxil Tab*) 30 mg PO DAILY [facility] Last Admin: 10/13/16 08:27 Dose: 30 mg Quetiapine Fumarate (Seroquel Xr Tab*) 200 mg PO BEDTIME [facility] Last Admin: 10/12/16 20:01 Dose: 200 mg Quetiapine Fumarate (Seroquel Xr Tab*) 300 mg PO BEDTIME [facility] Last Admin: 10/12/16 20:04 Dose: 300 mg - Discharge Plan Discharge Plan: Outpatient Follow Up Outpatient Program: Private Clinician(s)
[2016-10-13] MEDS: Amitriptyline TAB* 10 MG PO SCH (20:45)
[2016-10-13] MEDS: Mirtazapine TAB* 15 MG PO SCH (20:46)
[2016-10-13] MEDS: QUEtiapine XR TAB* 200 MG PO SCH (20:47)
[2016-10-13] MEDS: QUEtiapine XR TAB* 300 MG PO SCH (20:47)
[2016-10-14 07:39] VITALS: BP 112/58
[2016-10-14] MEDS: Insulin LISPRO* 1 UNITS UNIT SUBCUT SCH ×2 (07:59→11:58)
[2016-10-14] MEDS: Atorvastatin* 20 MG TAB PO SCH (08:00)
[2016-10-14] MEDS: Docusate CAP* 100 MG PO SCH (08:00)
[2016-10-14] MEDS: Clopidogrel TAB* 75 MG PO SCH (08:00)
[2016-10-14] MEDS: Aspirin Low Dose CHEW TAB* 81 MG PO SCH (08:00)
[2016-10-14] MEDS: PARoxetine HCL TAB* 10 MG PO SCH (08:00)
[2016-10-14] MEDS: Levothyroxine TAB* 50 MCG TAB PO SCH (08:00)
[2016-10-14] MEDS: glipiZIDE TAB* 5 MG PO SCH (08:00)
[2016-10-14] MEDS: CMCS: Pantoprazole TAB (NF) 40 MG TAB PO SCH (08:01)
[2016-10-14] MEDS: hydrOXYzine HCL TAB* 10 MG PO PRN (08:43)
--- NOTE | 2016-10-14 11:20 | DS ---
Subjective - Subjective Service Types: 80932 Hosp DC Day Mgmt simple under 30 min Subjective: Patient is anxious on interview. She reports overall an improvement in mood and anxiety with her admission and the medication modifications. She is now anxious about the daughter who she will be leaving in [place] to move in with the daughter in [place]. Patient was reassured this anxiety is normal and is situational. She reports she and her daughter in [place] spent alot of time together. It was discussed how any move is stressful and change is concerning. She was reassured as the move happens and she settles into her new home, the anxiety will drop when she gets used to her new place. She reports feeling her daughter in [place] will be able to adjust as well. Patient has been med compliant. She reports no med s/e's no agitation, and no further symptoms of seroquel withdrawal. Patient again denies SI/HI.Patient asked to present to her local ED if SI recurs. She was amenable and acknowledged understanding of her family and community supports Objective - Appearance Appearance: Well Developed/Nourished Dysmorphic Features: No Hygiene: Normal Grooming: Well Kept - Behavior Psychomotor Activities: Normal Exhibits Abnormal Movement: No - Attitude and Relatedness Attitude and Relatedness: Cooperative Eye Contact: Good - Speech Quality: Unpressured Latencies: Normal Quantity: Appropriate - Mood Patient's Decription of Mood: "Good" - Affect Observed Affect: Good Affect Consistent with: Euthymia - Thought Process Patient's Thought Process: Coherent Thought Content: No Passive Wish, No Suicidal Planning, No Homicidal Ideation, No Paranoid Ideation - Sensorium Experiencing Hallucinations: No, Sensorium is Clear Type of Hallucinations: Visual: No, Auditory: No, Command: No - Level of Consciousness Level of Consciousness: Alert Orientation: Yes Intact, Yes Orientated to Time, Yes Orientated to Place, Yes Orientated to Person - Impulse Control Impulse Control: Intact - Insight and Judgement Insight and Judgement: Fair - Group Participation Particating in Group Activities: Yes - Medication Management Medication Management Adherence: Yes Treatment Course & Assessment Clinical Course & Impression: HOSPITAL COURSE: 71yo female patient presented to the [facility] reporting worsening anxiety and depressive symptoms, associated with SI. Patient has dealt with recent loss of her 2 years ago, chronic inflammatory medical issues, intellectual disability, having to organized and execute moving from her apt she shared with her to a fdc facility. Patient also had a recent medication change. Patient identifies the reduction of her Seroquel dose from 600mg po qhs to 300mg as triggering her decompensation. On admission, patient is continued on home medication regimen with exception of Seroquel which is increased from 300mg to 400mg. Patient continued to report anxiety, agitation, and continued to feel overwhelmed to the point of SI. Patient's dose was increased to 500mg po qhs. Patient at 500mg was noted to have bennett affect , be more social and visible in the milieu, and more engaged in her therapy. Concurrently, patient's daughter opened her home to patient after discharge, and reported she will help oversee her mother's move. This was reported by patient as what boosted her mood and calmed her anxiety. On day of discharge, patient reported no med s/e nor symptoms of seroquel withdrawal. She was future oriented to see her grandchildren and eager to get moved into her daughter's. She will be transported home by her daughter and is amenable to discharge instructions. He denied SI/HI. PERTINENT LABS: Lipid Panel: (10/07/16) Triglycerides - 126 Cholesterol - 126 LDL - 50 HDL- 51 Discharge Meds: Home Medications Medication Instructions Recorded Confirmed Type Aspirin [Aspirin 81 MG TAB] 81 mg PO DAILY 10/07/16 10/07/16 History Glyburide 5 mg PO DAILY 10/07/16 10/08/16 History PARoxetine HCL TAB* [Paxil TAB*] 30 mg PO DAILY 10/07/16 10/07/16 History Plavix TAB* 75 mg PO DAILY 10/07/16 10/08/16 History Simvastatin 40 mg PO DAILY 10/07/16 10/08/16 History Levothyroxine TAB* [Synthroid TAB*] 50 mcg PO DAILY 10/08/16 10/08/16 History Mirtazapine TAB* [Remeron TAB*] 15 mg PO BEDTIME #30 tab 10/14/16 Rx QUEtiapine XR TAB* [Seroquel Xr 200 mg PO BEDTIME #30 tab.xr 10/14/16 Rx TAB*] QUEtiapine XR TAB* [Seroquel Xr 300 mg PO BEDTIME tab.xr 10/14/16 Rx TAB*] glipiZIDE TAB* [Glucotrol TAB*] 5 mg PO DAILY #0 tab 10/14/16 Rx Consultants: none Follow-Up: Appts for within the next 2 weeks scheduled by for PCP and [facility](psychiatry and counseling). Clear for Discharge: Adequate Clinical Respons, Acceptable Safety Profile Inpatient DSM-IV Dx: 1. Withdrawal Syndrome, Seroquel. 2. Anxiety disorder, unspecified. 3. Depressive disorder, unspecified. 4. Intellectual disability - [place] I Mental Illness: 1. Withdrawal Syndrome, Seroquel. 2. Anxiety disorder, unspecified. 3. Depressive disorder, unspecified. 4. Intellectual disability - In[place] III Medical Illness: recent TIA Discharge Planning - Discharge Planning Discharge Plan: Outpatient Follow Up Outpatient Program: [facility] Recommendations for Continuing Care: Psychotherapy Medications: Current Medications Acetaminophen (Tylenol Tab*) 650 mg PO Q4H PRN PRN Reason: PAIN or TEMP > 101 F Last Admin: 10/13/16 18:39 Dose: 650 mg Al Hydrox/Mg Hydrox/Simethicone (Maalox Plus*) 30 ml PO Q4H PRN PRN Reason: INDIGESTION Amitriptyline HCl (Elavil Tab*) 10 mg PO BEDTIME [facility] Last Admin: 10/13/16 20:45 Dose: 10 mg Aspirin (Aspirin Low Dose Tab*) 81 mg PO DAILY [facility] Last Admin: 10/14/16 08:00 Dose: 81 mg Atorvastatin Calcium (Lipitor*) 20 mg PO DAILY [facility] Last Admin: 10/14/16 08:00 Dose: 20 mg Clopidogrel Bisulfate (Plavix Tab*) 75 mg PO DAILY [facility] Last Admin: 10/14/16 08:00 Dose: 75 mg Docusate Sodium (Colace Cap*) 200 mg PO BID [facility] Last Admin: 10/14/16 08:00 Dose: 200 mg Glipizide (Glucotrol Tab*) 5 mg PO DAILY [facility] Last Admin: 10/14/16 08:00 Dose: 5 mg Hydroxyzine HCl (Atarax Tab*) 10 mg PO Q4H PRN PRN Reason: ANXIETY Last Admin: 10/14/16 08:43 Dose: 10 mg Insulin Human Lispro (Humalog*) 0 units SUBCUT ACHS [facility] PRN Reason: Protocol Last Admin: 10/14/16 07:59 Dose: Not Given Levothyroxine Sodium (Synthroid Tab*) 50 mcg PO 0600 [facility] Last Admin: 10/14/16 08:00 Dose: 50 mcg Mirtazapine (Remeron Tab*) 15 mg PO BEDTIME [facility] Last Admin: 10/13/16 20:46 Dose: 15 mg Pantoprazole Sodium (Protonix Tab (Nf)) 40 mg PO DAILY [facility] Last Admin: 10/14/16 08:01 Dose: 40 mg Paroxetine HCl (Paxil Tab*) 30 mg PO DAILY [facility] Last Admin: 10/14/16 08:00 Dose: 30 mg Quetiapine Fumarate (Seroquel Xr Tab*) 200 mg PO BEDTIME [facility] Last Admin: 10/13/16 20:47 Dose: 200 mg Quetiapine Fumarate (Seroquel Xr Tab*) 300 mg PO BEDTIME [facility] Last Admin: 10/13/16 20:47 Dose: 300 mg Discharge Planning: Prescriptions provided for discharge [x] Yes [] No Follow up care details as per social work arrangements. Patient response to discharge plan: [] eager for discharge [x] agreeable with discharge plan [] ambivalent about discharge [] disagrees with discharge today
--- NOTE | 2016-10-14 11:56 | PN ---
MHU: Group Therapy Note - Service Type Service Type: [id number] Group Psychotherapy - Cognitive Behavioral Group Therapy ( CBT):Patient was attentive and participatory in CBT programming this morning, and remained in good behavioral control. Patient expressed positive insights regarding relevant treatment interventions and goals.
== END 2016-10-14 12:30 | disposition home or self-care (01) | DRG 897 ==
LOC: BSU 22:35
PROVIDERS: ADMIT Psychiatry & Neurology Psychiatry; ATTEND Psychiatry & Neurology Psychiatry
DX: F19.939 Other psychoactive substance use, unspecified with withdrawal, unspecified (principal); R45.851 Suicidal ideations; F09 Unspecified mental disorder due to known physiological condition; F41.9 Anxiety disorder, unspecified; F32.9 Major depressive disorder, single episode, unspecified; F79 Unspecified intellectual disabilities; E11.9 Type 2 diabetes mellitus without complications; I10 Essential (primary) hypertension; E78.5 Hyperlipidemia, unspecified; Z79.82 Long term (current) use of aspirin; Z79.84 Long term (current) use of oral hypoglycemic drugs; Z86.73 Personal history of transient ischemic attack (TIA), and cerebral infarction without residual deficits; Z79.01 Long term (current) use of anticoagulants; Z79.899 Other long term (current) drug therapy
CPT/HCPCS: 90853; 99222; 99231; 99238; A9270-GY

== ENCOUNTER 2016-12-03 15:19 | Emergency (ER) | payer MEDICARE ==
--- NOTE | 2016-12-03 17:00 | RAD ---
INDICATION: Head injury. COMPARISON: Comparison is made with a prior CT of the brain from October 07, 2016 and a prior MRI of the brain from October 08, 2016. TECHNIQUE: Contiguous axial sections of the brain were obtained from the skull base to the vertex without contrast. The exam is slightly limited due to motion artifact. FINDINGS: The ventricles, cisterns and sulci are within normal limits. There are multiple areas of decreased attenuation present in the subcortical and periventricular white matter most consistent with chronic small vessel ischemic changes. No other focal abnormality or mass effect is seen. There is no evidence for hemorrhage. There is focal soft tissue swelling anterior to the left frontal bone. No fracture is seen. The visualized portion of the paranasal sinuses and mastoid air cells appear clear. IMPRESSION: 1. NO EVIDENCE FOR ACUTE INTRACRANIAL ABNORMALITY. 2. FINDINGS SUGGESTIVE OF CHRONIC SMALL VESSEL ISCHEMIC CHANGES.
--- NOTE | 2016-12-03 17:02 | ED ---
Head Injury - HPI Summary HPI Summary: 71F presents with head injury today. She has had stroke in the past. she is not alway orientated at baseline as has started to develop dementia which is started to be worked up for. She slipped and hit forehead. she also landed on her right hip and is complaining of pain there. She has had a previous head injury a week ago. She is on plavix and ASA. she denies any headache, nausea or vomiting. She denies any LOC. She denies any other injury. She was able to ambulate afterwards. - History Of Current Complaint Chief Complaint: EDHeadInjury Stated Complaint: FALL/HEAD INJURY Time Seen by Provider: 12/03/16 16:10 Pain Intensity: 2 - Allergies/Home Medications Allergies/Adverse Reactions: Allergies Allergy/AdvReac Type Severity Reaction Status Date / Time Fluoxetine [From Prozac] Allergy Rash And Verified 12/03/16 15:39 Itching PMH/Surg Hx/FS Hx/Imm Hx Endocrine/Hematology History: Reports: Hx Anticoagulant Therapy, Hx Diabetes Cardiovascular History: Denies: Hx Pacemaker/ICD Sensory History: Reports: Hx Hearing Problem - [facility] Denies: Hx Contacts or Glasses, Hx Legally Blind, Hx Deafness, Hx Hearing Aid Opthamlomology History: Denies: Hx Contacts or Glasses, Hx Legally Blind Neurological History: Reports: Hx Transient Ischemic Attacks (TIA) Psychiatric History: Reports: Hx Anxiety, Hx Depression, Hx Inpatient Treatment , Hx Community Mental Health Tx Denies: Hx Panic Disorder - Surgical History Surgery Procedure, Year, and Place: GALBLADDER. TUBAL LIGATION. HYSTERECTOMY Infectious Disease History: No Infectious Disease History: Denies: Traveled Outside the [place] in Last 30 Days - Family History Known Family History: Positive: Other - Conon cancer in mother - Social History Alcohol Use: None Hx Substance Use: No Substance Use Type: Reports: None Hx Tobacco Use: No Smoking Status (MU): Never Smoked Tobacco Amount Used/How Often: Pt has not smoked or used any other tobacco products in the last 30 days. Review of Systems Negative: Fever Negative: Chest Pain Negative: Shortness Of Breath Positive: Myalgia - right hip pain Positive: Headache All Other Systems Reviewed And Are Negative: Yes Physical Exam Triage Information Reviewed: Yes Vital Signs On Initial Exam: Initial Vitals Temp Pulse Resp BP Pulse Ox 97.5 F 93 20 128/90 99 12/03/16 15:21 12/03/16 15:21 12/03/16 15:21 12/03/16 15:21 12/03/16 15:21 Vital Signs Reviewed: Yes Appearance: Positive: Well-Appearing Skin: Positive: Warm, Dry Head/Face: Positive: Normal Head/Face Inspection, Other - no step off, racoon eyes, munson sign Eyes: Positive: Normal, EOMI, ELVIN, Conjunctiva Clear ENT: Positive: Normal ENT inspection, Pharynx normal, TMs normal Respiratory/Lung Sounds: Positive: Clear to Auscultation, Breath Sounds Present Cardiovascular: Positive: Normal, RRR Musculoskeletal: Positive: Other - tenderness right hip, good pulses, capillary refill<@ secs Neurological: Positive: Sensory/Motor Intact, CN Intact II-III, Finger to Nose, Other - no oriented to time - Lucio Coma Scale Best Eye Response: 3 - To Speech Best Motor Response: 6 - Obeys Commands Best Verbal Response: 5 - Oriented Diagnostics - Vital Signs Vital Signs Temp Pulse Resp BP Pulse Ox 12/03/16 15:35 97.5 F 93 16 128/90 99 12/03/16 15:21 97.5 F 93 20 128/90 99 - Laboratory Lab Statement: Any lab studies that have been ordered have been reviewed, and results considered in the medical decision making process. - Radiology hip Xray Interpretation: Positive (See Comments) Radiology Interpretation Completed By: Radiologist - CT brain CT Interpretation: Positive (See Comments) - IMPRESSION: 1. NO EVIDENCE FOR ACUTE INTRACRANIAL ABNORMALITY. 2. FINDINGS SUGGESTIVE OF CHRONIC SMALL VESSEL ISCHEMIC CHANGES. CT Interpretation Completed By: Radiologist Head Injury Course/Dx Course Of Treatment: 71F presents with head injury today. She has had stroke in the past. she is not alway orientated at baseline as has started to develop dementia which is started to be worked up for. She slipped and hit forehead. she also landed on her right hip. She has had a previous head injury a week ago. She is on plavix and ASA. she denies any headache, nausea or vomiting. She denies any LOC. CNII-XII intact. alert but not orientated to time. CT normal. xray normal. told to follow up with primary. patient understands and agrees with plan. - Diagnoses Differential Diagnosis/HQI/PQRI: Cerebral Contusion, Concussion Without LOC, Intracranial Bleed Provider Diagnoses: Head injury, Right hip pain Discharge - Discharge Plan Condition: Good Disposition: HOME Patient Education Materials: Head Injury (ED) Referrals: No Primary Care Phys,NOPCP [Primary Care Provider] - Additional Instructions: Place ice on area as needed Take Tylenol for headache every 6 hours Follow up with primary within 5 days Return to ED if develop vomiting, severe headache, change in behavior, or any new or worsening symptoms
--- NOTE | 2016-12-03 17:23 | RAD ---
INDICATION: Right hip injury. COMPARISON: There are no prior studies available for comparison. TECHNIQUE: An AP view of the pelvis and frontal and lateral views of the right hip were obtained. FINDINGS: The bones are in normal alignment. No fracture is seen. There is mild osteoarthritic change in the right hip and moderate osteoarthritic change in the left hip. IMPRESSION: NO EVIDENCE FOR FRACTURE, IF THE PATIENT'S SYMPTOMS PERSIST RECOMMEND FOLLOW-UP IMAGING.
[2016-12-03 17:49] VITALS: BP 142/73
== END 2016-12-03 17:48 | disposition home or self-care (01) ==
LOC: ED 15:19
DX: S09.90XA Unspecified injury of head, initial encounter (principal); W01.0XXA Fall on same level from slipping, tripping and stumbling without subsequent striking against object, initial encounter; Y93.9 Activity, unspecified; Y92.9 Unspecified place or not applicable
CPT/HCPCS: 70450; 99282

== ENCOUNTER 2016-12-04 13:47 | Inpatient (IN) | payer MEDICARE ==
[2016-12-04 15:05] LABS: Hematocrit 37 % (35-47); Hemoglobin 12.5 g/dl (12.0-16.0); Mean Corpuscular HGB Conc 34 g/dl (31-36); Mean Corpuscular Hemoglobin 27 pg (27-31); Mean Corpuscular Volume 81 fL (80-97); Mean Platelet Volume 9 um3 (7.4-10.4); Red Cell Distribution Width 14 % (10.5-15)
[2016-12-04 15:24] LABS: Troponin I 0.01 ng/mL (<0.04)
[2016-12-04 15:33] LABS: Albumin 3.7 g/dL (3.2-5.2); BUN/Creatinine Ratio 16.8 (8-20); EGFR Non-African American 58.3 (>60); Globulin 2.5 g/dL (2-4); Magnesium 1.1 mg/dL (1.9-2.7); Potassium 3.5 mmol/L (3.5-5.0); Total Bilirubin 0.5 mg/dL (0.2-1.0); Total Protein 6.2 g/dL (6.4-8.9)
--- NOTE | 2016-12-04 15:38 | RAD ---
HISTORY: Syncope COMPARISONS: December 03, 2016 TECHNIQUE: Multiple contiguous axial CT scans were obtained of the head without intravenous contrast. FINDINGS: HEMORRHAGE/INFARCT: There is no hemorrhage or acute infarct. MASSES/SHIFT: There is no mass or shift. EXTRA-AXIAL SPACES: There are no extra-axial fluid collections. SULCI AND VENTRICLES: The sulci and ventricles are normal in size and position for the patient's stated age. CEREBRUM: There is hypoattenuation of the periventricular and subcortical white matter. BRAINSTEM: There are no focal parenchymal abnormalities. CEREBELLUM: There are no focal parenchymal abnormalities. VESSELS: The vessels are grossly normal. PARANASAL SINUSES: The paranasal sinuses are clear. ORBITS: The orbits are unremarkable. BONES AND SOFT TISSUE: No bone or soft tissue abnormalities are noted. OTHER: None IMPRESSION: NO ACUTE INTRACRANIAL PATHOLOGY. CHRONIC SMALL VESSEL ISCHEMIC CHANGES.
[2016-12-04] MEDS ORDERED: NS 0.9% 1000 ML* 2,000 ML IV ONE (15:40)
--- NOTE | 2016-12-04 15:41 | RAD ---
HISTORY: Left hand trauma COMPARISONS: None VIEWS: 3, Frontal, lateral, and oblique views of the left hand FINDINGS: BONE DENSITY: There is diffuse osteopenia. BONES: There are minimally displaced fractures of the proximal phalanges of the fourth and fifth digits JOINTS: There is advanced osteoarthritis of the first CMC joint ALIGNMENT: There is no dislocation. SOFT TISSUES: There is soft tissue swelling along the dorsum of the hand OTHER FINDINGS: None. IMPRESSION: 1. MINIMALLY DISPLACED FRACTURES OF THE PROXIMAL PHALANGES OF THE FOURTH AND FIFTH DIGITS. 2. OSTEOPENIA. 3. OSTEOARTHRITIS. 4. SOFT TISSUE SWELLING.
[2016-12-04 15:43] LABS: TSH (Thyroid Stimulating Horm) 0.53 mcIU/mL (0.34-5.60)
[2016-12-04] MEDS ORDERED: Dextrose 50% Syringe 50 ML* 25 GM/50 ML SYRINGE IV PUSH PRN (17:59)
[2016-12-04] MEDS ORDERED: Insulin GLARGINE(*) 1 UNITS UNIT SUBCUT SCH (18:00)
[2016-12-04] MEDS ORDERED: Lidocaine 1% INJ* 10 MG/ML 30 ML SDV ONE (18:04)
[2016-12-04] MEDS ORDERED: traMADol TAB* 50 MG PO PRN (18:07)
[2016-12-04] MEDS ORDERED: Acetaminophen TAB* 325 MG PO PRN (18:07)
[2016-12-04] MEDS: Heparin VIAL(*) 5000 UNITS/ML VIAL (FIVE THOUSAND) SUBCUT SCH (20:43)
[2016-12-04] MEDS: Gabapentin CAP(*) 100 MG PO SCH (20:43)
[2016-12-04] MEDS: Atorvastatin* 20 MG TAB PO SCH (20:44)
[2016-12-04] MEDS: Benztropine TAB* 1 MG PO SCH (20:44)
[2016-12-04] MEDS: NS 0.9% 1000 ML* 1,000 ML IV SCH (20:44)
[2016-12-04] MEDS: Magnesium Sulf 4 GM/100 ML IV* 4,000 MG/100 ML BAG IVPB ONE ×2 (20:48→21:12)
--- NOTE | 2016-12-04 22:29 | HP ---
HOSPITAL MEDICINE HISTORY AND PHYSICAL: DATE OF ADMISSION: 12/04/16 PRIMARY CARE PHYSICIAN: None. ATTENDING PHYSICIAN: Heladio Willoughby MD * (dictation provided by Areli Little NP). CHIEF COMPLAINT: Falls. HISTORY OF PRESENT ILLNESS: Ms. 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 Ms. Boone is attended by her daughter, who she lives with. Per the report, the patient has had 3 falls recently. She was seen in our emergency room yesterday for a fall and was discharged after a negative workup. She returns today after falling overnight. The patient's daughter is very concerned that the patient is unsafe at home due to the falls. The patient's daughter is very willing to care for the patient, but is unable to stay with her 24 hours a day to monitor her. The patient herself denies any acute problem other than pain to her left hand. The patient reports a fall this morning that did cause injury to her 4th and 5th fingers. She denies any other complaints including chest pain, shortness of breath, nausea, abdominal pain, or diarrhea. In the emergency room, Ms. Boone had a lactic acid of 3.2. Her mucous membranes are dry. She has a very low magnesium at 1.1. Her CT of the brain is negative. Her hand x-ray does confirm a left 4th and 5th digit fracture. PAST MEDICAL HISTORY: 1. History of CVA to left MCA in 2014. 2. History of TIA with facial droop and slurred speech, October of 2016. 3. Hypothyroidism. 4. Type 2 diabetes non-insulin dependent. 5. History of suicide ideation with admission to the mental health unit, October of 2016. 6. Hypertension. 7. Hyperlipidemia. 8. Depression. 9. Anxiety. 10. Insomnia. MEDICATIONS: 1. Glipizide 5 mg p.o. daily. 2. Metformin 1000 mg p.o. b.i.d. 3. Aripiprazole 5 mg p.o. daily. 4. Aspirin 81 mg p.o. daily. 5. Benztropine 1 mg p.o. b.i.d. 6. Plavix 75 mg p.o. daily. 7. Gabapentin 200 mg p.o. b.i.d. 8. Lantus 12 units subcutaneously q.p.m. 9. Levothyroxine 50 mcg p.o. daily. 10. Paxil 30 mg p.o. daily. 11. Simvastatin 40 mg p.o. q.p.m. 12. Vitamin E cap 800 units p.o. daily. ALLERGIES: To FLUOXETINE. FAMILY HISTORY: The patient reports her mother related to coronary artery disease in her 60s and father related to prostate cancer in his 80s. SOCIAL HISTORY: No report of alcohol, tobacco or drug use. The patient lives with her daughter, who is the healthcare proxy. REVIEW OF SYSTEMS: A 14-point review of systems was attempted with Ms. Boone. She was very distracted and anxious about possible [place] [facility] placement, but all those not mentioned above were negative. PHYSICAL EXAMINATION GENERAL: Ms. Boone is sitting in the bed, she is weepy, but in no acute distress. VITAL SIGNS: Temperature 98.7, heart rate 87, respiratory rate 20, O2 saturation 100% on room air, and blood pressure 116/60. LUNGS: Clear to auscultation bilaterally with no accessory muscle use and good aeration. HEART: S1, S2. No murmur, rub, or gallop, and regular. ABDOMEN: Soft, nontender with bowel sounds positive x4. EXTREMITIES: No cyanosis or edema. NEURO: She is alert. She is oriented x3. Although, she is very confused during the conversation. She does not know who she is and where she is and the time. She has decreased strength in the right lower extremity, good strength in both upper and left extremities. She has no facial asymmetry or focal weakness. Extraocular movements are intact. SKIN: Intact. LABORATORY DATA: Sodium 137, potassium 3.5, chloride 106, serum bicarbonate 23 , BUN 16, creatinine 0.95, glucose 145, lactic acid 3.2. WBC 8.0, hemoglobin 12.5, hematocrit 37, and platelet count 243. CT of the brain was obtained due to the fact that the patient is on Plavix and sustained a fall. She had no acute intracranial pathology and chronic small vessel ischemic changes. The hand x-ray shows a fracture to the left 4th and 5th digits. ASSESSMENT: Ms. Boone is a 71-year-old female with past medical history of dementia, depression, and anxiety with recent admission to the mental health unit for a suicide ideation as well as cerebrovascular accident, transient ischemic attack, hypothyroidism, diabetes, who presents today to the hospital with concerns for multiple falls at home and found to be dehydrated. Our plans are for observation in the hospital for the followin. Dehydration: The patient has an elevated lactic acid and also appears dry clinically with very dry mucous membranes. Our plan is to complete the 2 liters of IV fluid that were ordered in the emergency room. The patient will have a followup lactic acid with plan to continue with maintenance fluids or additional boluses as needed. 2. Hypomagnesemia: Plan to replete magnesium intravenously and recheck tomorrow. 3. Falls: Ms. Boone has decreased strength in her right leg, which could be contributing to her falls as well as dementia. The patient's daughter is very concerned about continuing to care for her at home as she is not able to be with her 24-hours a day and the patient has sustained 3 falls just this month now with fracture to 2 fingers. Plans are to have the patient to be seen by case management tomorrow. I will note that the patient's daughter states that she has been working with [facility] to secure placement and has started completion of a TRESA. 4. Diabetes: Blood glucoses q.a.c. with lispro sliding scale. Also plan to continue the patient's home Lantus. 5. Fracture to 4th and 5th left fingers: Dr. Horowitz will be seeing the patient. The patient will have tramadol and Tylenol available p.r.n. 6. History of cerebrovascular accident: Continue Plavix. 7. Hypothyroidism: Continue levothyroxine. 8. Depression: Continue Paxil. 9. DVT prophylaxis with heparin subcu. 10. Disposition to the medical floor. 11. Code status is DNR. TIME SPENT: Approximately 60 minutes were spent on the admission of this patient, more than half the time spent with her at the bedside reviewing the events leading up to this hospitalization, performing the physical examination, and reviewing the plan of care. ARELI LITTLE NP [id number]/[facility] #: [id number] [facility]
--- NOTE | 2016-12-04 23:36 | CONS ---
CONSULTATION NOTE: DATE OF CONSULT: 12/04/16 CHIEF COMPLAINT: Left fourth and fifth finger fractures. HISTORY: The patient is a 71-year-old woman, with advanced dementia, who lives with her daughter but will be soon living in a half-way, who presents one night after sustaining a fall and injuries to the left hand. Last night, on the night of 12/03/16, the patient was found on the floor of the bathroom having fallen off the toilet. The family brought her to her bed and noted her acting confused. The patient has some baseline dementia. The patient 's hand this morning was found to be swollen and ecchymotic. The patient's daughter reports confusion at baseline, although there was increased confusion last night. The patient was in the emergency department just yesterday for falling twice. She had a CT of the brain, which showed no acute findings although signs of dementia according to the daughter. The patient reports pain in the left hand but the patient has difficulty following commands and answering even the most basic questions such as the date , her age, where she is, what she injured, how she injured it. The history was obtained from the patient's daughter. PAST MEDICAL HISTORY: Diabetes, transient ischemic attacks, anxiety, depression. PAST SURGICAL HISTORY: Cholecystectomy, tubal ligation, hysterectomy. MEDICATIONS: See emergency department records. ALLERGIES: FLUOXETINE (rash and itching). REVIEW OF SYSTEMS: The patient is not able to answer faithfully about chest pain, heart palpitations, shortness of breath or any other symptoms. As stated above, the patient has minimal orientation. PHYSICAL EXAM: Vital signs at 1:56 p.m. on 12/04/16 are temperature 98.4 degrees Fahrenheit, pulse 83, blood pressure 104/60, respirations 20, pulse oxygenation 98% on room air. No acute distress. The patient appeared comfortable before I manipulated her hand, the patient appeared somewhat disheveled in general appearance. The patient is not alert and oriented towards place, time, or even some characteristics about herself such as age. The patient was examined supine in bed and so I did not examine her gait. Left hand exam demonstrates soft tissue swelling and bruising about the hand at the level of metacarpals into the fingers, especially small and ring finger. Tenderness to palpation about the fourth and fifth MCP joints. Swelling and bruising there. No open skin. Neurovascularly intact distally. No other tenderness to palpation of the left forearm or elbow. IMAGING: X-rays obtained in the emergency department, 3 views of the left hand demonstrate fractures, displaced at the base of the fourth and fifth finger proximal phalanges. Ring and small finger proximal phalangeal base fractures, displaced, with particular extension angulation of the base of the fifth metacarpal. ASSESSMENT: 1. Displaced fracture, small finger proximal phalanx, base. 2. Displaced fracture, ring finger proximal phalangeal base. PLAN: 1. The patient is not a good surgical candidate given her current dementia. This fracture would be fixed operatively with pins percutaneously. I discussed this with the patient's daughter and she is not interested in surgery. 2. Contrary to the report by radiologist, there is some significant displacement of one of the two fractures, specifically the base of the small finger proximal phalanx. This is visible on lateral view and oblique view of the hand. 3. PROCEDURE: Closed manipulation of fractures, proximal phalangeal base fractures, ring and small fingers left hand. Verbal consent, sterile technique , tolerated well. 8 cc of lidocaine 1%, performed hematoma blocks. I returned 12 minutes later and placed an ulnar gutter splint in the intrinsic plus position after having reduced with manipulation the fractures. I taped down the fingers so that the hand would not extend at the MCP joints over time. 4. The patient should follow up with me in 3 weeks in clinic. We will take the patient out of the splint at that time, obtain radiographs and cast the patient likely for an additional 3 weeks if she can tolerate it. 5. The patient should make an appointment to see Dr. Guru Horowitz at [facility] Orthopedics approximately 3 weeks from today. [id number]/[facility] #: [id number] [facility] CENTERAndrew
[2016-12-05] MEDS: Levothyroxine TAB* 50 MCG TAB PO SCH (05:24)
[2016-12-05] MEDS: Heparin VIAL(*) 5000 UNITS/ML VIAL (FIVE THOUSAND) SUBCUT SCH ×3 (05:24→22:14)
[2016-12-05] MEDS: Insulin LISPRO* 1 UNITS UNIT SUBCUT SCH ×3 (08:42→17:22)
[2016-12-05] MEDS: NS 0.9% 1000 ML* 1,000 ML IV SCH (09:16)
[2016-12-05] MEDS: Vitamin E CAP* 400 UNIT PO SCH (09:17)
[2016-12-05] MEDS: Gabapentin CAP(*) 100 MG PO SCH ×3 (09:18→20:37)
[2016-12-05] MEDS: PARoxetine HCL TAB* 10 MG PO SCH (09:18)
[2016-12-05] MEDS: Aspirin EC Low Dose* 81 MG TAB.EC PO SCH (09:18)
[2016-12-05] MEDS: Clopidogrel TAB* 75 MG PO SCH (09:18)
[2016-12-05] MEDS: Benztropine TAB* 1 MG PO SCH ×2 (09:19→20:38)
--- NOTE | 2016-12-05 09:34 | PN ---
Subjective Date of Service: 12/05/16 Interval History: Ms. Boone complains of some mild discomfort to her left hand but denies any other complaint today. She specifically denies chest pain, SOB, nausea, or abdominal pain. Objective Active Medications: Acetaminophen (Tylenol Tab*) 650 mg PO Q6H PRN Aripiprazole (Abilify Tab*) 5 mg PO DAILY [facility] Aspirin (Aspirin Ec Low Dose*) 81 mg PO DAILY [facility] Atorvastatin Calcium (Lipitor*) 20 mg PO QPM [facility] Benztropine Mesylate (Cogentin Tab*) 1 mg PO BID [facility] Clopidogrel Bisulfate (Plavix Tab*) 75 mg PO DAILY [facility] Dextrose (D50w Syringe 50 Ml*) 12.5 gm IV PUSH .FOR FS < 60 - SS PRN Gabapentin (Neurontin Cap(*)) 200 mg PO TID [facility] Heparin Sodium (Porcine) (Heparin Vial(*)) 5,000 units SUBCUT Q8HR [facility] Sodium Chloride (Ns 0.9% 1000 Ml*) 1,000 mls @ 75 mls/hr IV PER RATE [facility] Insulin Glargine (Lantus(*)) 12 units SUBCUT QPM [facility] Insulin Human Lispro (Humalog*) 0 units SUBCUT AC [facility] Levothyroxine Sodium (Synthroid Tab*) 50 mcg PO 0600 [facility] Paroxetine HCl (Paxil Tab*) 30 mg PO DAILY [facility] Tramadol HCl (Ultram*) 50 mg PO Q6H PRN Vitamin E (Vitamin E Cap*) 800 unit PO DAILY [facility] Vital Signs 12/04/16 12/04/16 12/04/16 18:00 18:30 18:33 Temperature Pulse Rate Respiratory 17 22 18 Rate Blood Pressure 170/79 153/73 (mmHg) O2 Sat by Pulse Oximetry 12/04/16 12/04/16 12/04/16 19:30 20:00 20:43 Temperature 98.0 F Pulse Rate 82 Respiratory 18 18 18 Rate Blood Pressure 148/69 (mmHg) O2 Sat by Pulse 97 Oximetry 12/04/16 12/04/16 12/05/16 22:43 23:24 03:36 Temperature 98.1 F 98.0 F Pulse Rate 59 73 Respiratory 18 16 20 Rate Blood Pressure 103/47 140/59 (mmHg) O2 Sat by Pulse 94 93 Oximetry 08/19/17 08/19/17 07:40 09:18 Temperature 98.7 F Pulse Rate 73 Respiratory 14 16 Rate Blood Pressure 120/49 (mmHg) O2 Sat by Pulse 97 Oximetry Oxygen Devices in Use Now: None Appearance: Female sitting up in bed in NAD Eyes: No Scleral Icterus Ears/Nose/Mouth/Throat: Mucous Membranes Moist Neck: Trachea Midline Respiratory: Symmetrical Chest Expansion and Respiratory Effort, Clear to Auscultation Cardiovascular: NL Sounds; No Murmurs; No JVD, No Edema Abdominal: NL Sounds; No Tenderness; No Distention Lymphatic: No Cervical Adenopathy Extremities: - - L hand in cast, CMS intact Skin: No Rash or Ulcers Neurological: Alert and Oriented x 3, NL Muscle Strength and Tone Nutrition: Taking PO's Result Diagrams: 12/04/16 14:46 12/04/16 14:46 Assess/Plan/Problems-Billing Assessment: Ms. Boone is a 71 yo F with a PMH of anxiety, depression, dementia who was admitted on 12/04/16 after a fall at home with dehydration and left 4th and 5th digit fracture. - Patient Problems (1) Dehydration Comment: - Resolved with IVF. (2) Hypomagnesemia Comment: - Resolved with supplementation. (3) Finger fracture, left Comment: - Appreciate ortho input, cast applied. - Will need follow up outpatient with Dr. Leon in 3 weeks. - Pain meds prn. (4) Falls Comment: - Frequent falls at home. Patient states its because she forgets to use her walker. - PT/OT to eval. (5) Anxiety Comment: - Continue abilify and paxil. (6) Diabetes Comment: - BGs 70 this AM. - Reduce lantus dose to 10 units qPM, continue SSI coverage with meals. (7) HLD (hyperlipidemia) Comment: - Continue statin. (8) DVT prophylaxis Comment: - HSQ Status and Disposition: Switch from OBV to inpatient with need for > 2 days LOS for PT and to arrange for safe discharge plan.
[2016-12-05] MEDS: ARIPiprazole TAB* 5 MG PO SCH (10:14)
[2016-12-05 12:26] LABS: Urine Bacteria Absent (Absent); Urine Bilirubin Negative (Negative); Urine Glucose Negative (Negative); Urine Nitrite Negative (Negative)
--- NOTE | 2016-12-05 13:18 | ED ---
Camden Alvarado Nikita, scribed for Kwasi Abdalla MD on 12/04/16 at 1456 . Upper Extremity Pain - HPI Summary HPI Summary: Pt is a 71 yo F presenting to the ED c/o left hand injury. Last night she was found on the floor of the bathroom after falling off the toilet. Family brought her to her bed and noticed her acting confused and "nothing was making sense". This morning, her hand was found swollen and described as "hard." Daughter reports mild confusion at baseline though episode last night was worse. Negative neck pain. Pt was in the ED yesterday for falling twice. Had a CT of the brain, which showed no acute findings, though signs of dementia noted per her daughter. Also, XR of the hip/pelvis showed no acute findings. - History of Current Complaint Chief Complaint: EDExtremityUpper Stated Complaint: FALL/LT HAND SWELLING Time Seen by Provider: 12/04/16 14:28 Hx Obtained From: Patient, Family/[employer]visor Onset/Duration: Started Days Ago - Last night, Still Present Severity Currently: Moderate - 5/10 Pain Location: Hand - Left hand Aggravating Factor(s): Nothing Alleviating Factor(s): Nothing Associated Signs & Symptoms: Positive: Swelling - of the L hand. Negative: Neck Pain - Allergies/Home Medications Allergies/Adverse Reactions: Allergies Allergy/AdvReac Type Severity Reaction Status Date / Time Fluoxetine [From Prozac] Allergy Rash And Verified 12/04/16 13:56 Itching PMH/Surg Hx/FS Hx/Imm Hx Previously Healthy: No Endocrine/Hematology History: Reports: Hx Anticoagulant Therapy, Hx Diabetes Cardiovascular History: Denies: Hx Pacemaker/ICD Sensory History: Reports: Hx Hearing Problem - [place] Denies: Hx Contacts or Glasses, Hx Legally Blind, Hx Deafness, Hx Hearing Aid Opthamlomology History: Denies: Hx Contacts or Glasses, Hx Legally Blind Neurological History: Reports: Hx Transient Ischemic Attacks (TIA) Psychiatric History: Reports: Hx Anxiety, Hx Depression, Hx Inpatient Treatment , Hx Community Mental Health Tx Denies: Hx Panic Disorder - Surgical History Surgery Procedure, Year, and Place: GALBLADDER. TUBAL LIGATION. HYSTERECTOMY Infectious Disease History: Denies: Traveled Outside the [place] in Last 30 Days - Family History Known Family History: Positive: Other - Colon cancer in mother - Social History Alcohol Use: None Hx Substance Use: No Substance Use Type: Reports: None Hx Tobacco Use: No Smoking Status (MU): Never Smoked Tobacco Amount Used/How Often: Pt has not smoked or used any other tobacco products in the last 30 days. Review of Systems Positive: Other - NEGATIVE: neck pain Positive: Other - Swelling of the left hand. Neurological: Other - Confusion last night. All Other Systems Reviewed And Are Negative: Yes Physical Exam Triage Information Reviewed: Yes Vital Signs On Initial Exam: Initial Vitals Temp Pulse Resp BP Pulse Ox 98.4 F 83 20 104/60 98 12/04/16 13:56 12/04/16 13:56 12/04/16 13:56 12/04/16 13:56 12/04/16 13:56 Vital Signs Reviewed: Yes Appearance: Positive: Well-Appearing, No Pain Distress Skin: Positive: Other - Ecchymosis and swelling over her 4th and 5th MPJ's both distally and volarly. Head/Face: Positive: Other - Ecchymosis on L side of forehead. Eyes: Positive: Normal ENT: Positive: Normal ENT inspection Neck: Positive: Supple, Nontender Respiratory/Lung Sounds: Positive: Clear to Auscultation, Breath Sounds Present Cardiovascular: Positive: RRR Abdomen Description: Positive: Nontender, Soft Bowel Sounds: Positive: Present Musculoskeletal: Positive: Normal Neurological: Positive: Normal Psychiatric: Positive: Normal Procedures - Splinting Hand-Made Type: orthoglass Splint: ulnar Pre-Proc Neuro Vasc Exam: normal Post-Proc Neuro Vasc Exam: normal Diagnostics - Vital Signs Vital Signs Temp Pulse Resp BP Pulse Ox 12/04/16 13:56 98.4 F 83 20 104/60 98 - Laboratory Lab Results: Lab Results 12/04/16 12/04/16 12/04/16 Range/Units 12:00 14:46 14:46 WBC 8.0 (3.5-10.8) 10^3/ul RBC 4.60 (4.0-5.4) 10^6/ul Hgb 12.5 (12.0-16.0) g/dl Hct 37 (35-47) % MCV 81 (80-97) fL MCH 27 (27-31) pg MCHC 34 (31-36) g/dl RDW 14 (10.5-15) % Plt Count 243 (150-450) 10^3/ul MPV 9 (7.4-10.4) um3 Neut % (Auto) 67.4 (38-83) % Lymph % (Auto) 20.7 L (25-47) % [place] % (Auto) 9.6 H (1-9) % Eos % (Auto) 1.7 (0-6) % Baso % (Auto) 0.6 (0-2) % Absolute Neuts (auto) 5.4 (1.5-7.7) 10^3/ul Absolute Lymphs (auto) 1.7 (1.0-4.8) 10^3/ul Absolute Monos (auto) 0.8 (0-0.8) 10^3/ul Absolute Eos (auto) 0.1 (0-0.6) 10^3/ul Absolute Basos (auto) 0.1 (0-0.2) 10^3/ul Absolute Nucleated RBC 0 10^3/ul Nucleated RBC % 0 Sodium 137 (133-145) mmol/L Potassium 3.5 (3.5-5.0) mmol/L Chloride 106 (101-111) mmol/L Carbon Dioxide 23 (22-32) mmol/L Anion Gap 8 (2-11) mmol/L BUN 16 (6-24) mg/dL Creatinine 0.95 (0.51-0.95) mg/dL Est GFR ( Amer) 75.0 (>60) Est GFR (Non-Af Amer) 58.3 (>60) BUN/Creatinine Ratio 16.8 (8-20) Glucose 145 H (70-100) mg/dL POC Glucose (mg/dL) (70-100) mg/dL Lactic Acid (0.5-2.0) mmol/L Calcium 9.0 (8.6-10.3) mg/dL Magnesium 1.1 L (1.9-2.7) mg/dL Total Bilirubin 0.50 (0.2-1.0) mg/dL AST 13 (13-39) U/L ALT 10 (7-52) U/L Alkaline Phosphatase 46 (34-104) U/L Total Creatine Kinase 246 H (10-223) U/L Troponin I 0.01 (<0.04) ng/mL Total Protein 6.2 L (6.4-8.9) g/dL Albumin 3.7 (3.2-5.2) g/dL Globulin 2.5 (2-4) g/dL Albumin/Globulin Ratio 1.5 (1-3) TSH 0.53 (0.34-5.60) mcIU/mL Urine Color Yellow Urine Appearance Clear Urine pH 5.0 (5-9) Ur Specific [place] 1.010 (1.010-1.030) Urine Protein Negative (Negative) Urine Ketones Trace H (Negative) Urine Blood Negative (Negative) Urine Nitrate Negative (Negative) Urine Bilirubin Negative (Negative) Urine Urobilinogen Negative (Negative) Ur Leukocyte Esterase Trace H (Negative) Urine WBC (Auto) Trace(0-5/hpf) (Absent) Urine RBC (Auto) Trace(0-2/hpf) (Absent) Urine Bacteria Absent (Absent) Urine Glucose Negative (Negative) 12/04/16 12/04/16 12/04/16 Range/Units 14:46 19:52 20:24 WBC (3.5-10.8) 10^3/ul RBC (4.0-5.4) 10^6/ul Hgb (12.0-16.0) g/dl Hct (35-47) % MCV (80-97) fL MCH (27-31) pg MCHC (31-36) g/dl RDW (10.5-15) % Plt Count (150-450) 10^3/ul MPV (7.4-10.4) um3 Neut % (Auto) (38-83) % Lymph % (Auto) (25-47) % [place] % (Auto) (1-9) % Eos % (Auto) (0-6) % Baso % (Auto) (0-2) % Absolute Neuts (auto) (1.5-7.7) 10^3/ul Absolute Lymphs (auto) (1.0-4.8) 10^3/ul Absolute Monos (auto) (0-0.8) 10^3/ul Absolute Eos (auto) (0-0.6) 10^3/ul Absolute Basos (auto) (0-0.2) 10^3/ul Absolute Nucleated RBC 10^3/ul Nucleated RBC % Sodium (133-145) mmol/L Potassium (3.5-5.0) mmol/L Chloride (101-111) mmol/L Carbon Dioxide (22-32) mmol/L Anion Gap (2-11) mmol/L BUN (6-24) mg/dL Creatinine (0.51-0.95) mg/dL Est GFR ( Amer) (>60) Est GFR (Non-Af Amer) (>60) BUN/Creatinine Ratio (8-20) Glucose (70-100) mg/dL POC Glucose (mg/dL) 75 (70-100) mg/dL Lactic Acid 3.2 H* 0.9 (0.5-2.0) mmol/L Calcium (8.6-10.3) mg/dL Magnesium (1.9-2.7) mg/dL Total Bilirubin (0.2-1.0) mg/dL AST (13-39) U/L ALT (7-52) U/L Alkaline Phosphatase (34-104) U/L Total Creatine Kinase (10-223) U/L Troponin I (<0.04) ng/mL Total Protein (6.4-8.9) g/dL Albumin (3.2-5.2) g/dL Globulin (2-4) g/dL Albumin/Globulin Ratio (1-3) TSH (0.34-5.60) mcIU/mL Urine Color Urine Appearance Urine pH (5-9) Ur Specific [place] (1.010-1.030) Urine Protein (Negative) Urine Ketones (Negative) Urine Blood (Negative) Urine Nitrate (Negative) Urine Bilirubin (Negative) Urine Urobilinogen (Negative) Ur Leukocyte Esterase (Negative) Urine WBC (Auto) (Absent) Urine RBC (Auto) (Absent) Urine Bacteria (Absent) Urine Glucose (Negative) 12/05/16 12/05/16 Range/Units 05:42 08:34 WBC (3.5-10.8) 10^3/ul RBC (4.0-5.4) 10^6/ul Hgb (12.0-16.0) g/dl Hct (35-47) % MCV (80-97) fL MCH (27-31) pg MCHC (31-36) g/dl RDW (10.5-15) % Plt Count (150-450) 10^3/ul MPV (7.4-10.4) um3 Neut % (Auto) (38-83) % Lymph % (Auto) (25-47) % [place] % (Auto) (1-9) % Eos % (Auto) (0-6) % Baso % (Auto) (0-2) % Absolute Neuts (auto) (1.5-7.7) 10^3/ul Absolute Lymphs (auto) (1.0-4.8) 10^3/ul Absolute Monos (auto) (0-0.8) 10^3/ul Absolute Eos (auto) (0-0.6) 10^3/ul Absolute Basos (auto) (0-0.2) 10^3/ul Absolute Nucleated RBC 10^3/ul Nucleated RBC % Sodium (133-145) mmol/L Potassium (3.5-5.0) mmol/L Chloride (101-111) mmol/L Carbon Dioxide (22-32) mmol/L Anion Gap (2-11) mmol/L BUN (6-24) mg/dL Creatinine (0.51-0.95) mg/dL Est GFR ( Amer) (>60) Est GFR (Non-Af Amer) (>60) BUN/Creatinine Ratio (8-20) Glucose (70-100) mg/dL POC Glucose (mg/dL) 81 (70-100) mg/dL Lactic Acid (0.5-2.0) mmol/L Calcium (8.6-10.3) mg/dL Magnesium 2.1 (1.9-2.7) mg/dL Total Bilirubin (0.2-1.0) mg/dL AST (13-39) U/L ALT (7-52) U/L Alkaline Phosphatase (34-104) U/L Total Creatine Kinase (10-223) U/L Troponin I (<0.04) ng/mL Total Protein (6.4-8.9) g/dL Albumin (3.2-5.2) g/dL Globulin (2-4) g/dL Albumin/Globulin Ratio (1-3) TSH (0.34-5.60) mcIU/mL Urine Color Urine Appearance Urine pH (5-9) Ur Specific [place] (1.010-1.030) Urine Protein (Negative) Urine Ketones (Negative) Urine Blood (Negative) Urine Nitrate (Negative) Urine Bilirubin (Negative) Urine Urobilinogen (Negative) Ur Leukocyte Esterase (Negative) Urine WBC (Auto) (Absent) Urine RBC (Auto) (Absent) Urine Bacteria (Absent) Urine Glucose (Negative) Result Diagrams: 12/04/16 14:46 12/04/16 14:46 Lab Statement: Any lab studies that have been ordered have been reviewed, and results considered in the medical decision making process. - Radiology Hand XR Xray Interpretation: Positive (See Comments) - 1. MINIMALLY DISPLACED FRACTURES OF THE PROXIMAL PHALANGES OF THE FOURTH AND FIFTH DIGITS. 2. OSTEOPENIA. 3. OSTEOARTHRITIS. 4. SOFT TISSUE SWELLING. Radiology Interpretation Completed By: Radiologist - CT Brain CT CT Interpretation: No Acute Changes - NO ACUTE INTRACRANIAL PATHOLOGY. CHRONIC SMALL VESSEL ISCHEMIC CHANGES. CT Interpretation Completed By: Radiologist - EKG 1448 Cardiac Rate: NL - 74 bpm EKG Rhythm: 1st Degree HB EKG Comparison: No Significant Change - from EKG on 10/07/16 Re-Evaluation - Re-Evaluation First Eval Re-Evaluation Time: 16:41 Comment: Applied a splint to the L hand. Course/Dx - Course Course Of Treatment: Ms. Boone has been falling a lot recently. She fell yesterday after leaving the hospital. Today her hand was noted to be swollen. Here she was found to have fractures at the bases of her 4th and 5th proximal phalanges. She was splinted and the hospitalists consulted as she is unsafe at home. - Diagnoses Provider Diagnoses: Fracture carpal bone-open, Fall - Physician Notifications Discussed Care of Patient With: Areli Little Time Discussed With Above Provider: 16:47 Instructed by Provider To: Other - Accepted pt for admission. Discharge - Discharge Plan Condition: Stable Disposition: ADMITTED TO [facility] documentation as recorded by the Camden martínez Nikita accurately reflects the service I personally performed and the decisions made by me, Kwasi Abdalla MD.
[2016-12-05] MEDS: Insulin GLARGINE(*) 1 UNITS UNIT SUBCUT SCH (18:21)
[2016-12-05] MEDS: Atorvastatin* 20 MG TAB PO SCH (18:21)
[2016-12-06] MEDS: Heparin VIAL(*) 5000 UNITS/ML VIAL (FIVE THOUSAND) SUBCUT SCH ×3 (06:12→21:34)
[2016-12-06] MEDS: NS 0.9% 1000 ML* 1,000 ML IV SCH ×2 (06:15→19:39)
[2016-12-06] MEDS: Levothyroxine TAB* 50 MCG TAB PO SCH (06:15)
[2016-12-06] MEDS: Insulin LISPRO* 1 UNITS UNIT SUBCUT SCH ×3 (08:06→17:23)
[2016-12-06] MEDS: Gabapentin CAP(*) 100 MG PO SCH ×3 (10:11→19:33)
[2016-12-06] MEDS: Vitamin E CAP* 400 UNIT PO SCH (10:11)
[2016-12-06] MEDS: Aspirin EC Low Dose* 81 MG TAB.EC PO SCH (10:11)
[2016-12-06] MEDS: PARoxetine HCL TAB* 10 MG PO SCH (10:11)
[2016-12-06] MEDS: ARIPiprazole TAB* 5 MG PO SCH (10:12)
[2016-12-06] MEDS: Clopidogrel TAB* 75 MG PO SCH (10:12)
[2016-12-06] MEDS: Benztropine TAB* 1 MG PO SCH ×2 (10:12→19:33)
--- NOTE | 2016-12-06 11:09 | PN ---
Subjective Date of Service: 12/06/16 Interval History: Ms. Boone denies complaint other than stating that she feels tired. She denies chest pain, SOB, nausea, or abdominal pain. Objective Active Medications: Acetaminophen (Tylenol Tab*) 650 mg PO Q6H PRN Aripiprazole (Abilify Tab*) 5 mg PO DAILY [facility] Aspirin (Aspirin Ec Low Dose*) 81 mg PO DAILY [facility] Atorvastatin Calcium (Lipitor*) 20 mg PO QPM [facility] Benztropine Mesylate (Cogentin Tab*) 1 mg PO BID [facility] Clopidogrel Bisulfate (Plavix Tab*) 75 mg PO DAILY [facility] Dextrose (D50w Syringe 50 Ml*) 12.5 gm IV PUSH .FOR FS < 60 - SS PRN Gabapentin (Neurontin Cap(*)) 200 mg PO TID [facility] Heparin Sodium (Porcine) (Heparin Vial(*)) 5,000 units SUBCUT Q8HR [facility] Sodium Chloride (Ns 0.9% 1000 Ml*) 1,000 mls @ 75 mls/hr IV PER RATE [facility] Insulin Glargine (Lantus(*)) 10 units SUBCUT QPM [facility] Insulin Human Lispro (Humalog*) 0 units SUBCUT AC [facility] Levothyroxine Sodium (Synthroid Tab*) 50 mcg PO 0600 [facility] Paroxetine HCl (Paxil Tab*) 30 mg PO DAILY [facility] Tramadol HCl (Ultram*) 50 mg PO Q6H PRN Vitamin E (Vitamin E Cap*) 800 unit PO DAILY [facility] Vital Signs 12/05/16 12/05/16 12/05/16 11:18 11:19 14:36 Temperature 98.1 F Pulse Rate 69 Respiratory 18 18 18 Rate Blood Pressure 137/91 (mmHg) O2 Sat by Pulse 99 Oximetry 12/05/16 12/05/16 12/05/16 15:23 15:25 16:36 Temperature 98.7 F Pulse Rate 71 Respiratory 18 18 16 Rate Blood Pressure 91/68 (mmHg) O2 Sat by Pulse 95 Oximetry 12/05/16 12/05/16 12/05/16 17:25 19:42 20:00 Temperature 98.4 F Pulse Rate 70 Respiratory 16 18 18 Rate Blood Pressure 128/52 (mmHg) O2 Sat by Pulse 95 Oximetry 12/05/16 12/05/16 12/06/16 20:37 23:57 03:43 Temperature 99.3 F 98.4 F Pulse Rate 77 67 Respiratory 16 18 16 Rate Blood Pressure 141/87 123/45 (mmHg) O2 Sat by Pulse 95 96 Oximetry 12/06/16 10:11 Temperature Pulse Rate Respiratory 17 Rate Blood Pressure (mmHg) O2 Sat by Pulse Oximetry Oxygen Devices in Use Now: None Appearance: Female lying in bed in NAD Eyes: No Scleral Icterus Ears/Nose/Mouth/Throat: Mucous Membranes Moist Neck: NL Appearance and Movements; NL JVP Respiratory: Symmetrical Chest Expansion and Respiratory Effort, Clear to Auscultation Cardiovascular: NL Sounds; No Murmurs; No JVD, No Edema Abdominal: NL Sounds; No Tenderness; No Distention Lymphatic: No Cervical Adenopathy Extremities: No Edema Skin: No Rash or Ulcers Neurological: Alert and Oriented x 3, NL Muscle Strength and Tone Nutrition: Taking PO's Result Diagrams: 12/04/16 14:46 12/04/16 14:46 Additional Lab and Data: Lab Results 12/04/16 12/04/16 12/04/16 Range/Units 12:00 14:46 14:46 WBC 8.0 (3.5-10.8) 10^3/ul RBC 4.60 (4.0-5.4) 10^6/ul Hgb 12.5 (12.0-16.0) g/dl Hct 37 (35-47) % MCV 81 (80-97) fL MCH 27 (27-31) pg MCHC 34 (31-36) g/dl RDW 14 (10.5-15) % Plt Count 243 (150-450) 10^3/ul MPV 9 (7.4-10.4) um3 Neut % (Auto) 67.4 (38-83) % Lymph % (Auto) 20.7 L (25-47) % [place] % (Auto) 9.6 H (1-9) % Eos % (Auto) 1.7 (0-6) % Baso % (Auto) 0.6 (0-2) % Absolute Neuts (auto) 5.4 (1.5-7.7) 10^3/ul Absolute Lymphs (auto) 1.7 (1.0-4.8) 10^3/ul Absolute Monos (auto) 0.8 (0-0.8) 10^3/ul Absolute Eos (auto) 0.1 (0-0.6) 10^3/ul Absolute Basos (auto) 0.1 (0-0.2) 10^3/ul Absolute Nucleated RBC 0 10^3/ul Nucleated RBC % 0 Sodium 137 (133-145) mmol/L Potassium 3.5 (3.5-5.0) mmol/L Chloride 106 (101-111) mmol/L Carbon Dioxide 23 (22-32) mmol/L Anion Gap 8 (2-11) mmol/L BUN 16 (6-24) mg/dL Creatinine 0.95 (0.51-0.95) mg/dL Est GFR ( Amer) 75.0 (>60) Est GFR (Non-Af Amer) 58.3 (>60) BUN/Creatinine Ratio 16.8 (8-20) Glucose 145 H (70-100) mg/dL POC Glucose (mg/dL) (70-100) mg/dL Lactic Acid (0.5-2.0) mmol/L Calcium 9.0 (8.6-10.3) mg/dL Magnesium 1.1 L (1.9-2.7) mg/dL Total Bilirubin 0.50 (0.2-1.0) mg/dL AST 13 (13-39) U/L ALT 10 (7-52) U/L Alkaline Phosphatase 46 (34-104) U/L Total Creatine Kinase 246 H (10-223) U/L Troponin I 0.01 (<0.04) ng/mL Total Protein 6.2 L (6.4-8.9) g/dL Albumin 3.7 (3.2-5.2) g/dL Globulin 2.5 (2-4) g/dL Albumin/Globulin Ratio 1.5 (1-3) TSH 0.53 (0.34-5.60) mcIU/mL Urine Color Yellow Urine Appearance Clear Urine pH 5.0 (5-9) Ur Specific [place] 1.010 (1.010-1.030) Urine Protein Negative (Negative) Urine Ketones Trace H (Negative) Urine Blood Negative (Negative) Urine Nitrate Negative (Negative) Urine Bilirubin Negative (Negative) Urine Urobilinogen Negative (Negative) Ur Leukocyte Esterase Trace H (Negative) Urine WBC (Auto) Trace(0-5/hpf) (Absent) Urine RBC (Auto) Trace(0-2/hpf) (Absent) Urine Bacteria Absent (Absent) Urine Glucose Negative (Negative) 12/04/16 12/04/16 12/04/16 Range/Units 14:46 19:52 20:24 WBC (3.5-10.8) 10^3/ul RBC (4.0-5.4) 10^6/ul Hgb (12.0-16.0) g/dl Hct (35-47) % MCV (80-97) fL MCH (27-31) pg MCHC (31-36) g/dl RDW (10.5-15) % Plt Count (150-450) 10^3/ul MPV (7.4-10.4) um3 Neut % (Auto) (38-83) % Lymph % (Auto) (25-47) % [place] % (Auto) (1-9) % Eos % (Auto) (0-6) % Baso % (Auto) (0-2) % Absolute Neuts (auto) (1.5-7.7) 10^3/ul Absolute Lymphs (auto) (1.0-4.8) 10^3/ul Absolute Monos (auto) (0-0.8) 10^3/ul Absolute Eos (auto) (0-0.6) 10^3/ul Absolute Basos (auto) (0-0.2) 10^3/ul Absolute Nucleated RBC 10^3/ul Nucleated RBC % Sodium (133-145) mmol/L Potassium (3.5-5.0) mmol/L Chloride (101-111) mmol/L Carbon Dioxide (22-32) mmol/L Anion Gap (2-11) mmol/L BUN (6-24) mg/dL Creatinine (0.51-0.95) mg/dL Est GFR ( Amer) (>60) Est GFR (Non-Af Amer) (>60) BUN/Creatinine Ratio (8-20) Glucose (70-100) mg/dL POC Glucose (mg/dL) 75 (70-100) mg/dL Lactic Acid 3.2 H* 0.9 (0.5-2.0) mmol/L Calcium (8.6-10.3) mg/dL Magnesium (1.9-2.7) mg/dL Total Bilirubin (0.2-1.0) mg/dL AST (13-39) U/L ALT (7-52) U/L Alkaline Phosphatase (34-104) U/L Total Creatine Kinase (10-223) U/L Troponin I (<0.04) ng/mL Total Protein (6.4-8.9) g/dL Albumin (3.2-5.2) g/dL Globulin (2-4) g/dL Albumin/Globulin Ratio (1-3) TSH (0.34-5.60) mcIU/mL Urine Color Urine Appearance Urine pH (5-9) Ur Specific [place] (1.010-1.030) Urine Protein (Negative) Urine Ketones (Negative) Urine Blood (Negative) Urine Nitrate (Negative) Urine Bilirubin (Negative) Urine Urobilinogen (Negative) Ur Leukocyte Esterase (Negative) Urine WBC (Auto) (Absent) Urine RBC (Auto) (Absent) Urine Bacteria (Absent) Urine Glucose (Negative) 12/05/16 12/05/16 Range/Units 05:42 08:34 WBC (3.5-10.8) 10^3/ul RBC (4.0-5.4) 10^6/ul Hgb (12.0-16.0) g/dl Hct (35-47) % MCV (80-97) fL MCH (27-31) pg MCHC (31-36) g/dl RDW (10.5-15) % Plt Count (150-450) 10^3/ul MPV (7.4-10.4) um3 Neut % (Auto) (38-83) % Lymph % (Auto) (25-47) % [place] % (Auto) (1-9) % Eos % (Auto) (0-6) % Baso % (Auto) (0-2) % Absolute Neuts (auto) (1.5-7.7) 10^3/ul Absolute Lymphs (auto) (1.0-4.8) 10^3/ul Absolute Monos (auto) (0-0.8) 10^3/ul Absolute Eos (auto) (0-0.6) 10^3/ul Absolute Basos (auto) (0-0.2) 10^3/ul Absolute Nucleated RBC 10^3/ul Nucleated RBC % Sodium (133-145) mmol/L Potassium (3.5-5.0) mmol/L Chloride (101-111) mmol/L Carbon Dioxide (22-32) mmol/L Anion Gap (2-11) mmol/L BUN (6-24) mg/dL Creatinine (0.51-0.95) mg/dL Est GFR ( Amer) (>60) Est GFR (Non-Af Amer) (>60) BUN/Creatinine Ratio (8-20) Glucose (70-100) mg/dL POC Glucose (mg/dL) 81 (70-100) mg/dL Lactic Acid (0.5-2.0) mmol/L Calcium (8.6-10.3) mg/dL Magnesium 2.1 (1.9-2.7) mg/dL Total Bilirubin (0.2-1.0) mg/dL AST (13-39) U/L ALT (7-52) U/L Alkaline Phosphatase (34-104) U/L Total Creatine Kinase (10-223) U/L Troponin I (<0.04) ng/mL Total Protein (6.4-8.9) g/dL Albumin (3.2-5.2) g/dL Globulin (2-4) g/dL Albumin/Globulin Ratio (1-3) TSH (0.34-5.60) mcIU/mL Urine Color Urine Appearance Urine pH (5-9) Ur Specific [place] (1.010-1.030) Urine Protein (Negative) Urine Ketones (Negative) Urine Blood (Negative) Urine Nitrate (Negative) Urine Bilirubin (Negative) Urine Urobilinogen (Negative) Ur Leukocyte Esterase (Negative) Urine WBC (Auto) (Absent) Urine RBC (Auto) (Absent) Urine Bacteria (Absent) Urine Glucose (Negative) Assess/Plan/Problems-Billing Assessment: Ms. Boone is a 71 yo F with a PMH of anxiety, depression, dementia who was admitted on 12/04/16 after a fall at home with dehydration and left 4th and 5th digit fracture. - Patient Problems (1) Dehydration Comment: - Resolved with IVF. (2) Hypomagnesemia Comment: - Resolved with supplementation. (3) Finger fracture, left Comment: - Appreciate ortho input, cast applied. - Will need follow up outpatient with Dr. Leon in 3 weeks. - Pain meds prn. (4) Falls Comment: - Frequent falls at home. Patient states its because she forgets to use her walker. - PT/OT to eval. (5) Anxiety Comment: - Continue abilify and paxil. (6) Diabetes Comment: - BGs 70 this AM. - Reduce lantus dose to 10 units qPM, continue SSI coverage with meals. (7) HLD (hyperlipidemia) Comment: - Continue statin. (8) DVT prophylaxis Comment: - HSQ Status and Disposition: Inpatient with need for > 2 days LOS for PT and to arrange for safe discharge plan.
[2016-12-06] MEDS: Atorvastatin* 20 MG TAB PO SCH (17:20)
[2016-12-06] MEDS: Insulin GLARGINE(*) 1 UNITS UNIT SUBCUT SCH (17:20)
[2016-12-07] MEDS: Levothyroxine TAB* 50 MCG TAB PO SCH (05:14)
[2016-12-07] MEDS: Heparin VIAL(*) 5000 UNITS/ML VIAL (FIVE THOUSAND) SUBCUT SCH ×3 (05:14→23:41)
[2016-12-07] MEDS: Insulin LISPRO* 1 UNITS UNIT SUBCUT SCH ×3 (07:49→16:34)
[2016-12-07] MEDS: NS 0.9% 1000 ML* 1,000 ML IV SCH (08:20)
[2016-12-07] MEDS: Vitamin E CAP* 400 UNIT PO SCH (08:57)
[2016-12-07] MEDS: Aspirin EC Low Dose* 81 MG TAB.EC PO SCH (08:57)
[2016-12-07] MEDS: Benztropine TAB* 1 MG PO SCH ×2 (08:57→23:42)
[2016-12-07] MEDS: Clopidogrel TAB* 75 MG PO SCH (08:57)
[2016-12-07] MEDS: PARoxetine HCL TAB* 10 MG PO SCH (08:57)
[2016-12-07] MEDS: Gabapentin CAP(*) 100 MG PO SCH ×3 (08:58→23:40)
[2016-12-07] MEDS: ARIPiprazole TAB* 5 MG PO SCH (09:06)
--- NOTE | 2016-12-07 10:23 | PN ---
Subjective Date of Service: 12/07/16 Interval History: Ms. Boone states that she is feeling well today and has no complaints. She specifically denies chest pain, SOB, nausea, or abdominal pain. Objective Active Medications: Acetaminophen (Tylenol Tab*) 650 mg PO Q6H PRN Aripiprazole (Abilify Tab*) 5 mg PO DAILY [facility] Aspirin (Aspirin Ec Low Dose*) 81 mg PO DAILY [facility] Atorvastatin Calcium (Lipitor*) 20 mg PO QPM [facility] Benztropine Mesylate (Cogentin Tab*) 1 mg PO BID [facility] Clopidogrel Bisulfate (Plavix Tab*) 75 mg PO DAILY [facility] Dextrose (D50w Syringe 50 Ml*) 12.5 gm IV PUSH .FOR FS < 60 - SS PRN Gabapentin (Neurontin Cap(*)) 200 mg PO TID [facility] Heparin Sodium (Porcine) (Heparin Vial(*)) 5,000 units SUBCUT Q8HR [facility] Sodium Chloride (Ns 0.9% 1000 Ml*) 1,000 mls @ 75 mls/hr IV PER RATE [facility] Insulin Glargine (Lantus(*)) 10 units SUBCUT QPM [facility] Insulin Human Lispro (Humalog*) 0 units SUBCUT AC [facility] Levothyroxine Sodium (Synthroid Tab*) 50 mcg PO 0600 [facility] Paroxetine HCl (Paxil Tab*) 30 mg PO DAILY [facility] Tramadol HCl (Ultram*) 50 mg PO Q6H PRN Vitamin E (Vitamin E Cap*) 800 unit PO DAILY [facility] Vital Signs 12/06/16 12/06/16 12/06/16 11:27 12:11 13:39 Temperature 98.4 F Pulse Rate 65 Respiratory 18 16 17 Rate Blood Pressure 136/95 (mmHg) O2 Sat by Pulse 98 Oximetry 12/06/16 12/06/16 12/06/16 15:29 15:39 16:31 Temperature 98.7 F 98.7 F Pulse Rate 64 69 Respiratory 18 16 18 Rate Blood Pressure 93/79 142/57 (mmHg) O2 Sat by Pulse 95 97 Oximetry 12/06/16 12/06/16 12/06/16 19:33 20:00 20:01 Temperature 98.4 F Pulse Rate 76 Respiratory 20 20 18 Rate Blood Pressure 142/75 (mmHg) O2 Sat by Pulse 97 Oximetry 12/06/16 12/06/16 12/07/16 21:33 23:38 03:26 Temperature 98.6 F 98.5 F Pulse Rate 69 68 Respiratory 18 17 17 Rate Blood Pressure 150/55 136/67 (mmHg) O2 Sat by Pulse 94 97 Oximetry 12/07/16 12/07/16 07:22 08:58 Temperature 98.3 F Pulse Rate 71 Respiratory 16 18 Rate Blood Pressure 134/51 (mmHg) O2 Sat by Pulse 97 Oximetry Oxygen Devices in Use Now: None Appearance: Female lying in bed in NAD Eyes: No Scleral Icterus Ears/Nose/Mouth/Throat: Mucous Membranes Moist Neck: NL Appearance and Movements; NL JVP Respiratory: Symmetrical Chest Expansion and Respiratory Effort, Clear to Auscultation Cardiovascular: NL Sounds; No Murmurs; No JVD, No Edema Abdominal: NL Sounds; No Tenderness; No Distention Lymphatic: No Cervical Adenopathy Extremities: No Edema Skin: No Rash or Ulcers Neurological: Alert and Oriented x 3, NL Muscle Strength and Tone, - - Confused but is oriented Nutrition: Taking PO's Result Diagrams: 12/04/16 14:46 12/04/16 14:46 Additional Lab and Data: Lab Results 12/04/16 12/04/16 12/04/16 Range/Units 12:00 14:46 14:46 WBC 8.0 (3.5-10.8) 10^3/ul RBC 4.60 (4.0-5.4) 10^6/ul Hgb 12.5 (12.0-16.0) g/dl Hct 37 (35-47) % MCV 81 (80-97) fL MCH 27 (27-31) pg MCHC 34 (31-36) g/dl RDW 14 (10.5-15) % Plt Count 243 (150-450) 10^3/ul MPV 9 (7.4-10.4) um3 Neut % (Auto) 67.4 (38-83) % Lymph % (Auto) 20.7 L (25-47) % [place] % (Auto) 9.6 H (1-9) % Eos % (Auto) 1.7 (0-6) % Baso % (Auto) 0.6 (0-2) % Absolute Neuts (auto) 5.4 (1.5-7.7) 10^3/ul Absolute Lymphs (auto) 1.7 (1.0-4.8) 10^3/ul Absolute Monos (auto) 0.8 (0-0.8) 10^3/ul Absolute Eos (auto) 0.1 (0-0.6) 10^3/ul Absolute Basos (auto) 0.1 (0-0.2) 10^3/ul Absolute Nucleated RBC 0 10^3/ul Nucleated RBC % 0 Sodium 137 (133-145) mmol/L Potassium 3.5 (3.5-5.0) mmol/L Chloride 106 (101-111) mmol/L Carbon Dioxide 23 (22-32) mmol/L Anion Gap 8 (2-11) mmol/L BUN 16 (6-24) mg/dL Creatinine 0.95 (0.51-0.95) mg/dL Est GFR ( Amer) 75.0 (>60) Est GFR (Non-Af Amer) 58.3 (>60) BUN/Creatinine Ratio 16.8 (8-20) Glucose 145 H (70-100) mg/dL POC Glucose (mg/dL) (70-100) mg/dL Lactic Acid (0.5-2.0) mmol/L Calcium 9.0 (8.6-10.3) mg/dL Magnesium 1.1 L (1.9-2.7) mg/dL Total Bilirubin 0.50 (0.2-1.0) mg/dL AST 13 (13-39) U/L ALT 10 (7-52) U/L Alkaline Phosphatase 46 (34-104) U/L Total Creatine Kinase 246 H (10-223) U/L Troponin I 0.01 (<0.04) ng/mL Total Protein 6.2 L (6.4-8.9) g/dL Albumin 3.7 (3.2-5.2) g/dL Globulin 2.5 (2-4) g/dL Albumin/Globulin Ratio 1.5 (1-3) TSH 0.53 (0.34-5.60) mcIU/mL Urine Color Yellow Urine Appearance Clear Urine pH 5.0 (5-9) Ur Specific [place] 1.010 (1.010-1.030) Urine Protein Negative (Negative) Urine Ketones Trace H (Negative) Urine Blood Negative (Negative) Urine Nitrate Negative (Negative) Urine Bilirubin Negative (Negative) Urine Urobilinogen Negative (Negative) Ur Leukocyte Esterase Trace H (Negative) Urine WBC (Auto) Trace(0-5/hpf) (Absent) Urine RBC (Auto) Trace(0-2/hpf) (Absent) Urine Bacteria Absent (Absent) Urine Glucose Negative (Negative) 12/04/16 12/04/16 12/04/16 Range/Units 14:46 19:52 20:24 WBC (3.5-10.8) 10^3/ul RBC (4.0-5.4) 10^6/ul Hgb (12.0-16.0) g/dl Hct (35-47) % MCV (80-97) fL MCH (27-31) pg MCHC (31-36) g/dl RDW (10.5-15) % Plt Count (150-450) 10^3/ul MPV (7.4-10.4) um3 Neut % (Auto) (38-83) % Lymph % (Auto) (25-47) % [place] % (Auto) (1-9) % Eos % (Auto) (0-6) % Baso % (Auto) (0-2) % Absolute Neuts (auto) (1.5-7.7) 10^3/ul Absolute Lymphs (auto) (1.0-4.8) 10^3/ul Absolute Monos (auto) (0-0.8) 10^3/ul Absolute Eos (auto) (0-0.6) 10^3/ul Absolute Basos (auto) (0-0.2) 10^3/ul Absolute Nucleated RBC 10^3/ul Nucleated RBC % Sodium (133-145) mmol/L Potassium (3.5-5.0) mmol/L Chloride (101-111) mmol/L Carbon Dioxide (22-32) mmol/L Anion Gap (2-11) mmol/L BUN (6-24) mg/dL Creatinine (0.51-0.95) mg/dL Est GFR ( Amer) (>60) Est GFR (Non-Af Amer) (>60) BUN/Creatinine Ratio (8-20) Glucose (70-100) mg/dL POC Glucose (mg/dL) 75 (70-100) mg/dL Lactic Acid 3.2 H* 0.9 (0.5-2.0) mmol/L Calcium (8.6-10.3) mg/dL Magnesium (1.9-2.7) mg/dL Total Bilirubin (0.2-1.0) mg/dL AST (13-39) U/L ALT (7-52) U/L Alkaline Phosphatase (34-104) U/L Total Creatine Kinase (10-223) U/L Troponin I (<0.04) ng/mL Total Protein (6.4-8.9) g/dL Albumin (3.2-5.2) g/dL Globulin (2-4) g/dL Albumin/Globulin Ratio (1-3) TSH (0.34-5.60) mcIU/mL Urine Color Urine Appearance Urine pH (5-9) Ur Specific [place] (1.010-1.030) Urine Protein (Negative) Urine Ketones (Negative) Urine Blood (Negative) Urine Nitrate (Negative) Urine Bilirubin (Negative) Urine Urobilinogen (Negative) Ur Leukocyte Esterase (Negative) Urine WBC (Auto) (Absent) Urine RBC (Auto) (Absent) Urine Bacteria (Absent) Urine Glucose (Negative) 12/05/16 12/05/16 Range/Units 05:42 08:34 WBC (3.5-10.8) 10^3/ul RBC (4.0-5.4) 10^6/ul Hgb (12.0-16.0) g/dl Hct (35-47) % MCV (80-97) fL MCH (27-31) pg MCHC (31-36) g/dl RDW (10.5-15) % Plt Count (150-450) 10^3/ul MPV (7.4-10.4) um3 Neut % (Auto) (38-83) % Lymph % (Auto) (25-47) % [place] % (Auto) (1-9) % Eos % (Auto) (0-6) % Baso % (Auto) (0-2) % Absolute Neuts (auto) (1.5-7.7) 10^3/ul Absolute Lymphs (auto) (1.0-4.8) 10^3/ul Absolute Monos (auto) (0-0.8) 10^3/ul Absolute Eos (auto) (0-0.6) 10^3/ul Absolute Basos (auto) (0-0.2) 10^3/ul Absolute Nucleated RBC 10^3/ul Nucleated RBC % Sodium (133-145) mmol/L Potassium (3.5-5.0) mmol/L Chloride (101-111) mmol/L Carbon Dioxide (22-32) mmol/L Anion Gap (2-11) mmol/L BUN (6-24) mg/dL Creatinine (0.51-0.95) mg/dL Est GFR ( Amer) (>60) Est GFR (Non-Af Amer) (>60) BUN/Creatinine Ratio (8-20) Glucose (70-100) mg/dL POC Glucose (mg/dL) 81 (70-100) mg/dL Lactic Acid (0.5-2.0) mmol/L Calcium (8.6-10.3) mg/dL Magnesium 2.1 (1.9-2.7) mg/dL Total Bilirubin (0.2-1.0) mg/dL AST (13-39) U/L ALT (7-52) U/L Alkaline Phosphatase (34-104) U/L Total Creatine Kinase (10-223) U/L Troponin I (<0.04) ng/mL Total Protein (6.4-8.9) g/dL Albumin (3.2-5.2) g/dL Globulin (2-4) g/dL Albumin/Globulin Ratio (1-3) TSH (0.34-5.60) mcIU/mL Urine Color Urine Appearance Urine pH (5-9) Ur Specific [place] (1.010-1.030) Urine Protein (Negative) Urine Ketones (Negative) Urine Blood (Negative) Urine Nitrate (Negative) Urine Bilirubin (Negative) Urine Urobilinogen (Negative) Ur Leukocyte Esterase (Negative) Urine WBC (Auto) (Absent) Urine RBC (Auto) (Absent) Urine Bacteria (Absent) Urine Glucose (Negative) Assess/Plan/Problems-Billing Assessment: Ms. Boone is a 71 yo F with a PMH of anxiety, depression, dementia who was admitted on 12/04/16 after a fall at home with dehydration and left 4th and 5th digit fracture. - Patient Problems (1) Dehydration Comment: - Resolved with IVF. (2) Hypomagnesemia Comment: - Resolved with supplementation. (3) Finger fracture, left Comment: - Appreciate ortho input, cast applied. - Will need follow up outpatient with Dr. Leon in 3 weeks. - Pain meds prn. (4) Falls Comment: - Frequent falls at home. Patient states its because she forgets to use her walker. - PT/OT following, needs rehab. (5) Anxiety Comment: - Continue abilify and paxil. (6) Diabetes Comment: - BGs well controlled on current regimen. - Continue lantus 10 units qPM, continue SSI coverage with meals. (7) HLD (hyperlipidemia) Comment: - Continue statin. (8) DVT prophylaxis Comment: - HSQ Status and Disposition: Inpatient with need for > 2 days LOS for PT and to arrange for safe discharge plan. Anticipate discharge to [facility] vs [place].
[2016-12-07] MEDS: Atorvastatin* 20 MG TAB PO SCH (17:45)
[2016-12-07] MEDS: Insulin GLARGINE(*) 1 UNITS UNIT SUBCUT SCH (17:45)
[2016-12-08] MEDS: Heparin VIAL(*) 5000 UNITS/ML VIAL (FIVE THOUSAND) SUBCUT SCH ×3 (06:45→21:43)
[2016-12-08] MEDS: Levothyroxine TAB* 50 MCG TAB PO SCH (06:45)
[2016-12-08] MEDS: Insulin LISPRO* 1 UNITS UNIT SUBCUT SCH ×3 (08:51→17:23)
[2016-12-08] MEDS: Clopidogrel TAB* 75 MG PO SCH (08:59)
[2016-12-08] MEDS: Aspirin EC Low Dose* 81 MG TAB.EC PO SCH (08:59)
[2016-12-08] MEDS: Benztropine TAB* 1 MG PO SCH ×2 (08:59→21:44)
[2016-12-08] MEDS: Gabapentin CAP(*) 100 MG PO SCH ×3 (08:59→21:43)
[2016-12-08] MEDS: ARIPiprazole TAB* 5 MG PO SCH (08:59)
[2016-12-08] MEDS: PARoxetine HCL TAB* 10 MG PO SCH (08:59)
[2016-12-08] MEDS: Vitamin E CAP* 400 UNIT PO SCH (08:59)
--- NOTE | 2016-12-08 09:19 | PN ---
Subjective Date of Service: 12/08/16 Interval History: Ms. Boone states that she is feeling well today. She denies chest pain, SOB , nausea, or abdominal pain. Objective Active Medications: Acetaminophen (Tylenol Tab*) 650 mg PO Q6H PRN Aripiprazole (Abilify Tab*) 5 mg PO DAILY [facility] Aspirin (Aspirin Ec Low Dose*) 81 mg PO DAILY [facility] Atorvastatin Calcium (Lipitor*) 20 mg PO QPM [facility] Benztropine Mesylate (Cogentin Tab*) 1 mg PO BID [facility] Clopidogrel Bisulfate (Plavix Tab*) 75 mg PO DAILY [facility] Dextrose (D50w Syringe 50 Ml*) 12.5 gm IV PUSH .FOR FS < 60 - SS PRN Gabapentin (Neurontin Cap(*)) 200 mg PO TID [facility] Heparin Sodium (Porcine) (Heparin Vial(*)) 5,000 units SUBCUT Q8HR [facility] Insulin Glargine (Lantus(*)) 10 units SUBCUT QPM [facility] Insulin Human Lispro (Humalog*) 0 units SUBCUT AC [facility] Levothyroxine Sodium (Synthroid Tab*) 50 mcg PO 0600 [facility] Paroxetine HCl (Paxil Tab*) 30 mg PO DAILY [facility] Tramadol HCl (Ultram*) 50 mg PO Q6H PRN Vitamin E (Vitamin E Cap*) 800 unit PO DAILY [facility] Vital Signs 12/07/16 12/07/16 12/07/16 10:58 12:01 13:09 Temperature 98.2 F Pulse Rate 70 Respiratory 17 22 18 Rate Blood Pressure 135/67 (mmHg) O2 Sat by Pulse 98 Oximetry 12/07/16 12/07/16 12/07/16 15:09 15:56 19:50 Temperature 98.7 F 99.4 F Pulse Rate 70 72 Respiratory 17 16 16 Rate Blood Pressure 114/75 137/54 (mmHg) O2 Sat by Pulse 98 99 Oximetry 12/07/16 12/07/16 12/07/16 20:00 23:39 23:40 Temperature 98.2 F Pulse Rate 68 Respiratory 20 16 20 Rate Blood Pressure 153/35 (mmHg) O2 Sat by Pulse 95 Oximetry 12/08/16 12/08/16 12/08/16 01:40 03:50 08:59 Temperature 98.5 F Pulse Rate 68 Respiratory 16 20 18 Rate Blood Pressure 149/67 (mmHg) O2 Sat by Pulse 95 Oximetry Oxygen Devices in Use Now: None Appearance: Female sitting up in chair in NAD Eyes: No Scleral Icterus Ears/Nose/Mouth/Throat: Mucous Membranes Moist Neck: Trachea Midline Respiratory: Symmetrical Chest Expansion and Respiratory Effort, Clear to Auscultation Cardiovascular: NL Sounds; No Murmurs; No JVD Abdominal: NL Sounds; No Tenderness; No Distention Lymphatic: No Cervical Adenopathy Extremities: - - +2 edema to left hand, + CMS Skin: No Rash or Ulcers Neurological: Alert and Oriented x 3, NL Muscle Strength and Tone Nutrition: Taking PO's Result Diagrams: 12/04/16 14:46 12/04/16 14:46 Additional Lab and Data: Lab Results 12/04/16 12/04/16 12/04/16 Range/Units 12:00 14:46 14:46 WBC 8.0 (3.5-10.8) 10^3/ul RBC 4.60 (4.0-5.4) 10^6/ul Hgb 12.5 (12.0-16.0) g/dl Hct 37 (35-47) % MCV 81 (80-97) fL MCH 27 (27-31) pg MCHC 34 (31-36) g/dl RDW 14 (10.5-15) % Plt Count 243 (150-450) 10^3/ul MPV 9 (7.4-10.4) um3 Neut % (Auto) 67.4 (38-83) % Lymph % (Auto) 20.7 L (25-47) % [place] % (Auto) 9.6 H (1-9) % Eos % (Auto) 1.7 (0-6) % Baso % (Auto) 0.6 (0-2) % Absolute Neuts (auto) 5.4 (1.5-7.7) 10^3/ul Absolute Lymphs (auto) 1.7 (1.0-4.8) 10^3/ul Absolute Monos (auto) 0.8 (0-0.8) 10^3/ul Absolute Eos (auto) 0.1 (0-0.6) 10^3/ul Absolute Basos (auto) 0.1 (0-0.2) 10^3/ul Absolute Nucleated RBC 0 10^3/ul Nucleated RBC % 0 Sodium 137 (133-145) mmol/L Potassium 3.5 (3.5-5.0) mmol/L Chloride 106 (101-111) mmol/L Carbon Dioxide 23 (22-32) mmol/L Anion Gap 8 (2-11) mmol/L BUN 16 (6-24) mg/dL Creatinine 0.95 (0.51-0.95) mg/dL Est GFR ( Amer) 75.0 (>60) Est GFR (Non-Af Amer) 58.3 (>60) BUN/Creatinine Ratio 16.8 (8-20) Glucose 145 H (70-100) mg/dL POC Glucose (mg/dL) (70-100) mg/dL Lactic Acid (0.5-2.0) mmol/L Calcium 9.0 (8.6-10.3) mg/dL Magnesium 1.1 L (1.9-2.7) mg/dL Total Bilirubin 0.50 (0.2-1.0) mg/dL AST 13 (13-39) U/L ALT 10 (7-52) U/L Alkaline Phosphatase 46 (34-104) U/L Total Creatine Kinase 246 H (10-223) U/L Troponin I 0.01 (<0.04) ng/mL Total Protein 6.2 L (6.4-8.9) g/dL Albumin 3.7 (3.2-5.2) g/dL Globulin 2.5 (2-4) g/dL Albumin/Globulin Ratio 1.5 (1-3) TSH 0.53 (0.34-5.60) mcIU/mL Urine Color Yellow Urine Appearance Clear Urine pH 5.0 (5-9) Ur Specific [place] 1.010 (1.010-1.030) Urine Protein Negative (Negative) Urine Ketones Trace H (Negative) Urine Blood Negative (Negative) Urine Nitrate Negative (Negative) Urine Bilirubin Negative (Negative) Urine Urobilinogen Negative (Negative) Ur Leukocyte Esterase Trace H (Negative) Urine WBC (Auto) Trace(0-5/hpf) (Absent) Urine RBC (Auto) Trace(0-2/hpf) (Absent) Urine Bacteria Absent (Absent) Urine Glucose Negative (Negative) 12/04/16 12/04/16 12/04/16 Range/Units 14:46 19:52 20:24 WBC (3.5-10.8) 10^3/ul RBC (4.0-5.4) 10^6/ul Hgb (12.0-16.0) g/dl Hct (35-47) % MCV (80-97) fL MCH (27-31) pg MCHC (31-36) g/dl RDW (10.5-15) % Plt Count (150-450) 10^3/ul MPV (7.4-10.4) um3 Neut % (Auto) (38-83) % Lymph % (Auto) (25-47) % [place] % (Auto) (1-9) % Eos % (Auto) (0-6) % Baso % (Auto) (0-2) % Absolute Neuts (auto) (1.5-7.7) 10^3/ul Absolute Lymphs (auto) (1.0-4.8) 10^3/ul Absolute Monos (auto) (0-0.8) 10^3/ul Absolute Eos (auto) (0-0.6) 10^3/ul Absolute Basos (auto) (0-0.2) 10^3/ul Absolute Nucleated RBC 10^3/ul Nucleated RBC % Sodium (133-145) mmol/L Potassium (3.5-5.0) mmol/L Chloride (101-111) mmol/L Carbon Dioxide (22-32) mmol/L Anion Gap (2-11) mmol/L BUN (6-24) mg/dL Creatinine (0.51-0.95) mg/dL Est GFR ( Amer) (>60) Est GFR (Non-Af Amer) (>60) BUN/Creatinine Ratio (8-20) Glucose (70-100) mg/dL POC Glucose (mg/dL) 75 (70-100) mg/dL Lactic Acid 3.2 H* 0.9 (0.5-2.0) mmol/L Calcium (8.6-10.3) mg/dL Magnesium (1.9-2.7) mg/dL Total Bilirubin (0.2-1.0) mg/dL AST (13-39) U/L ALT (7-52) U/L Alkaline Phosphatase (34-104) U/L Total Creatine Kinase (10-223) U/L Troponin I (<0.04) ng/mL Total Protein (6.4-8.9) g/dL Albumin (3.2-5.2) g/dL Globulin (2-4) g/dL Albumin/Globulin Ratio (1-3) TSH (0.34-5.60) mcIU/mL Urine Color Urine Appearance Urine pH (5-9) Ur Specific [place] (1.010-1.030) Urine Protein (Negative) Urine Ketones (Negative) Urine Blood (Negative) Urine Nitrate (Negative) Urine Bilirubin (Negative) Urine Urobilinogen (Negative) Ur Leukocyte Esterase (Negative) Urine WBC (Auto) (Absent) Urine RBC (Auto) (Absent) Urine Bacteria (Absent) Urine Glucose (Negative) 12/05/16 12/05/16 Range/Units 05:42 08:34 WBC (3.5-10.8) 10^3/ul RBC (4.0-5.4) 10^6/ul Hgb (12.0-16.0) g/dl Hct (35-47) % MCV (80-97) fL MCH (27-31) pg MCHC (31-36) g/dl RDW (10.5-15) % Plt Count (150-450) 10^3/ul MPV (7.4-10.4) um3 Neut % (Auto) (38-83) % Lymph % (Auto) (25-47) % [place] % (Auto) (1-9) % Eos % (Auto) (0-6) % Baso % (Auto) (0-2) % Absolute Neuts (auto) (1.5-7.7) 10^3/ul Absolute Lymphs (auto) (1.0-4.8) 10^3/ul Absolute Monos (auto) (0-0.8) 10^3/ul Absolute Eos (auto) (0-0.6) 10^3/ul Absolute Basos (auto) (0-0.2) 10^3/ul Absolute Nucleated RBC 10^3/ul Nucleated RBC % Sodium (133-145) mmol/L Potassium (3.5-5.0) mmol/L Chloride (101-111) mmol/L Carbon Dioxide (22-32) mmol/L Anion Gap (2-11) mmol/L BUN (6-24) mg/dL Creatinine (0.51-0.95) mg/dL Est GFR ( Amer) (>60) Est GFR (Non-Af Amer) (>60) BUN/Creatinine Ratio (8-20) Glucose (70-100) mg/dL POC Glucose (mg/dL) 81 (70-100) mg/dL Lactic Acid (0.5-2.0) mmol/L Calcium (8.6-10.3) mg/dL Magnesium 2.1 (1.9-2.7) mg/dL Total Bilirubin (0.2-1.0) mg/dL AST (13-39) U/L ALT (7-52) U/L Alkaline Phosphatase (34-104) U/L Total Creatine Kinase (10-223) U/L Troponin I (<0.04) ng/mL Total Protein (6.4-8.9) g/dL Albumin (3.2-5.2) g/dL Globulin (2-4) g/dL Albumin/Globulin Ratio (1-3) TSH (0.34-5.60) mcIU/mL Urine Color Urine Appearance Urine pH (5-9) Ur Specific [place] (1.010-1.030) Urine Protein (Negative) Urine Ketones (Negative) Urine Blood (Negative) Urine Nitrate (Negative) Urine Bilirubin (Negative) Urine Urobilinogen (Negative) Ur Leukocyte Esterase (Negative) Urine WBC (Auto) (Absent) Urine RBC (Auto) (Absent) Urine Bacteria (Absent) Urine Glucose (Negative) Assess/Plan/Problems-Billing Assessment: Ms. Boone is a 71 yo F with a PMH of anxiety, depression, dementia who was admitted on 12/04/16 after a fall at home with dehydration and left 4th and 5th digit fracture. - Patient Problems (1) Dehydration Comment: - Resolved with IVF. (2) Hypomagnesemia Comment: - Resolved with supplementation. (3) Finger fracture, left Comment: - Appreciate ortho input, cast applied. - Will need follow up outpatient with Dr. Leon in 3 weeks. - Pain meds prn. Elevate L UE to decrease edema. (4) Falls Comment: - Frequent falls at home. Patient states its because she forgets to use her walker. - PT/OT following, needs rehab. (5) Anxiety Comment: - Continue abilify and paxil. (6) CVA (cerebral vascular accident) Comment: - Hx of CVA, continue plavix. (7) Diabetes Comment: - BGs well controlled on current regimen. - Continue lantus 10 units qPM, continue SSI coverage with meals. (8) HLD (hyperlipidemia) Comment: - Continue statin. (9) DVT prophylaxis Comment: - HSQ Status and Disposition: Inpatient with need for > 2 days LOS for PT and to arrange for safe discharge plan. Anticipate discharge to [facility] vs [place].
--- NOTE | 2016-12-08 16:07 | DS ---
DATE OF ADMISSION: 12/04/2016. DATE OF PLANNED DISCHARGE: 12/09/2016. ATTENDING PHYSICIAN: Dr. Gregory Ramirez * (dictation provided by Areli Little NP ). PRIMARY CARE PHYSICIAN: None. PRIMARY DIAGNOSES: 1. Dehydration. 2. Multiple falls. SECONDARY DIAGNOSES: 1. History of CVA to left MCA 2014. 2. History of TIA with facial droop and slurred speech October 2016. 3. Hypothyroidism. 4. Type 2 diabetes, noninsulin dependent. 5. History of suicidal ideation with admission to the Mental [facility] Unit October 2016. 6. Hypertension. 7. Hyperlipidemia. 8. Depression. 9. Anxiety. 10. Insomnia. MEDICATIONS AT THE TIME OF DISCHARGE: 1. Glipizide 5 mg p.o. daily. 2. Metformin 1000 mg p.o. b.i.d. 3. Aripiprazole 5 mg p.o. daily. 4. Aspirin 81 mg p.o. daily. 5. Benztropine 1 mg p.o. b.i.d. 6. Plavix 75 mg p.o. daily. 7. Gabapentin 200 mg p.o. b.i.d. 8. Lantus 10 units subcutaneously q.p.m. 9. Levothyroxine 50 mcg p.o. daily. 10. Paxil 30 mg p.o. daily. 11. Simvastatin 40 mg p.o. q.p.m. 12. Vitamin E cap 800 units p.o. daily. HOSPITAL COURSE: Ms. Boone is a 71-year-old female with a past medical history as outlined above who presented to the hospital on 12/04/2016 with concern for multiple falls at home. Please see the dictated history and physical from myself for complete details. In brief, the patient had fallen three times in the past week. The most recent fall had resulted in fracture to fourth and fifth digit on the left hand. In the emergency room, her CT of the brain was negative. She did have an elevated lactic acid of 3.2. Ms. Boone was admitted to the hospital. She was provided with intravenous fluids for dehydration and with this her lactic acid resolved by later that evening. She was seen in consultation by Dr. Horowitz from [facility] who placed a splint to her fractured fingers on the left. She did have some hypomagnesia and this was repleted intravenously. For the multiple falls, she was seen in consultation by Physical Therapy who indicated that she needed further rehab prior to consideration of returning home to living with her daughter. Ms. Boone is doing well. She has had no other acute issues during this hospitalization. We have secured placement at [facility] for the patient for continued rehabilitation to promote safety with her ambulation. DISPOSITION: To [place]. DIET: Consistent carbohydrate. ACTIVITY: As tolerated. FOLLOW-UP PLANS: 1. Please follow-up with Dr. Horowitz within the next two to three weeks for check of fracture to the left fourth and fifth digit. 2. Please follow-up per routine with physicians at [place] regarding management of chronic medical conditions, including diabetes. Approximately 60 minutes were spent on the discharge of this patient, more than half that time was spent with the patient at the bedside reviewing the events leading up to this hospitalization, performing the physical examination, and reviewing my plan of care. ARELI LITTLE NP [id number]/CPS #: [id number] MANOJ
--- NOTE | 2016-12-08 17:01 | PN ---
Progress Note - Progress Note Date of Service: 12/08/16 SOAP: Subjective: Pt with left hand phalanx fractures s/p reduction with ulnar gutter splint on. Ortho called today as pt was "picking" at splint and has ripped so wrap, splint falling off. Asked to assess/reapply new splint. Pt with some pain still. Objective: Vitals: Temp Pulse Resp BP Pulse Ox 99.0 F 63 19 149/67 95 12/08/16 07:48 12/08/16 07:48 12/08/16 15:47 12/08/16 07:48 12/08/16 07:48 Gen: Alert, confused secondary to dementia but oriented to self. NAD at rest LUE: Splint falling off ulnar aspect of hand, 4th finger no longer supported. Moderate edema through dorsum of hand and digits. Mild erythema and irritation to first web space but skin intact. N/V intact as well Assessment: Left hand phalanx fractures Plan: Ulnar gutter cast applied in intrinsic plus position, good cap refill to fingertips after. F/u with orthopedics in 2-3 weeks for re-assessment out of cast
[2016-12-08] MEDS: Insulin GLARGINE(*) 1 UNITS UNIT SUBCUT SCH (17:45)
[2016-12-08] MEDS: Atorvastatin* 20 MG TAB PO SCH (17:45)
[2016-12-09] MEDS: Heparin VIAL(*) 5000 UNITS/ML VIAL (FIVE THOUSAND) SUBCUT SCH ×3 (06:57→21:43)
[2016-12-09] MEDS: Levothyroxine TAB* 50 MCG TAB PO SCH (06:57)
[2016-12-09] MEDS: Insulin LISPRO* 1 UNITS UNIT SUBCUT SCH ×3 (08:53→17:50)
[2016-12-09] MEDS: Vitamin E CAP* 400 UNIT PO SCH (09:04)
[2016-12-09] MEDS: PARoxetine HCL TAB* 10 MG PO SCH (09:04)
[2016-12-09] MEDS: Gabapentin CAP(*) 100 MG PO SCH ×3 (09:05→21:43)
[2016-12-09] MEDS: ARIPiprazole TAB* 5 MG PO SCH (09:05)
[2016-12-09] MEDS: Aspirin EC Low Dose* 81 MG TAB.EC PO SCH (09:06)
[2016-12-09] MEDS: Benztropine TAB* 1 MG PO SCH ×2 (09:06→21:43)
[2016-12-09] MEDS: Clopidogrel TAB* 75 MG PO SCH (09:06)
--- NOTE | 2016-12-09 12:53 | PN ---
Subjective Date of Service: 12/09/16 Interval History: This is a 71 yo female with h/o prior TIA/CVA, DM and depression who was admitted after multiple falls at home and subsequent 4th/5th digit fractures. She was noted to be dehydrated on admission and subsequently rehydrated. She has been working with PT and doing well. Patient demonstrates some mild short term memory impairment and her daughter states this as been contributing to impulsiveness and likely her falls at home. Plan has been for dc to [facility]. Her insurance has unfortunately refused coverage of a rehab stay. Objective Active Medications: Acetaminophen (Tylenol Tab*) 650 mg PO Q6H PRN PRN Reason: PAIN Aripiprazole (Abilify Tab*) 5 mg PO DAILY [facility] Last Admin: 12/09/16 09:05 Dose: 5 mg Aspirin (Aspirin Ec Low Dose*) 81 mg PO DAILY [facility] Last Admin: 12/09/16 09:06 Dose: 81 mg Atorvastatin Calcium (Lipitor*) 20 mg PO QPM [facility] Last Admin: 12/08/16 17:45 Dose: 20 mg Benztropine Mesylate (Cogentin Tab*) 1 mg PO BID [facility] Last Admin: 12/09/16 09:06 Dose: 1 mg Clopidogrel Bisulfate (Plavix Tab*) 75 mg PO DAILY [facility] Last Admin: 12/09/16 09:06 Dose: 75 mg Dextrose (D50w Syringe 50 Ml*) 12.5 gm IV PUSH .FOR FS < 60 - SS PRN PRN Reason: FS < 60 Gabapentin (Neurontin Cap(*)) 200 mg PO TID [facility] Last Admin: 12/09/16 12:46 Dose: 200 mg Heparin Sodium (Porcine) (Heparin Vial(*)) 5,000 units SUBCUT Q8HR [facility] Last Admin: 12/09/16 12:47 Dose: 5,000 units Insulin Glargine (Lantus(*)) 10 units SUBCUT QPM [facility] Last Admin: 12/08/16 17:45 Dose: 10 units Insulin Human Lispro (Humalog*) 0 units SUBCUT AC [facility] PRN Reason: Protocol Last Admin: 12/09/16 12:46 Dose: 1 unit Levothyroxine Sodium (Synthroid Tab*) 50 mcg PO 0600 [facility] Last Admin: 12/09/16 06:57 Dose: 50 mcg Paroxetine HCl (Paxil Tab*) 30 mg PO DAILY [facility] Last Admin: 12/09/16 09:04 Dose: 30 mg Tramadol HCl (Ultram*) 50 mg PO Q6H PRN PRN Reason: PAIN Last Admin: 12/05/16 15:25 Dose: 50 mg Vitamin E (Vitamin E Cap*) 800 unit PO DAILY [facility] Last Admin: 12/09/16 09:04 Dose: 800 unit Vital Signs: Temp Pulse Resp BP Pulse Ox 97.8 F 72 16 151/85 98 12/09/16 08:34 12/09/16 08:34 12/09/16 12:46 12/09/16 08:34 12/09/16 08:34 Oxygen Devices in Use Now: None Appearance: Well appearing elderly female in NAD Respiratory: Symmetrical Chest Expansion and Respiratory Effort, Clear to Auscultation Cardiovascular: NL Sounds; No Murmurs; No JVD, RRR Extremities: No Edema Skin: No Rash or Ulcers Neurological: - - alert, appropriately oriented, but forgets who I am after a period of 5 min Result Diagrams: 12/04/16 14:46 12/04/16 14:46 Additional Lab and Data: . Assess/Plan/Problems-Billing Assessment: Ms. Boone is a 71 yo F with a PMH of anxiety, depression, dementia who was admitted on 12/04/16 after a fall at home with dehydration and left 4th and 5th digit fracture. - Patient Problems (1) Falls Comment: Frequent falls at home. Patient states its because she forgets to use her walker. PT/OT reports that she has met goals Likely a cognitive component that is contributing to her falls (2) Finger fracture, left Comment: Appreciate ortho input, cast applied. Will need follow up outpatient with Dr. Leon in 3 weeks. Pain meds prn. Elevate L UE to decrease edema. (3) Dehydration Comment: Resolved with IVF. (4) Hypomagnesemia Comment: Resolved with supplementation. (5) Diabetes Comment: BGs well controlled without her usual oral hypoglycemic agents, perhaps hypoglycemia may have contributed to her falls at home Continue lantus 10 units qPM, continue SSI coverage with meals. (6) CVA (cerebral vascular accident) Comment: Hx of CVA, continue plavix. (7) Anxiety Comment: Continue abilify and paxil. (8) HLD (hyperlipidemia) Comment: Continue statin. (9) Hypothyroid Comment: TSH wnl 10/08/16. COntinue home dose levothyroxine. (10) DVT prophylaxis Comment: HSQ Status and Disposition: Inpatient. Cancel dc at this time. Discussed NH placement v home with 24 hr care with patient's daughter today. Her daughter thinks she would be better served with NH placement.
[2016-12-09] MEDS: Atorvastatin* 20 MG TAB PO SCH (17:55)
[2016-12-09] MEDS: Insulin GLARGINE(*) 1 UNITS UNIT SUBCUT SCH (17:56)
[2016-12-10] MEDS: Levothyroxine TAB* 50 MCG TAB PO SCH (06:08)
[2016-12-10] MEDS: Heparin VIAL(*) 5000 UNITS/ML VIAL (FIVE THOUSAND) SUBCUT SCH (06:11)
[2016-12-10] MEDS: Insulin LISPRO* 1 UNITS UNIT SUBCUT SCH ×2 (09:00→12:47)
[2016-12-10] MEDS: PARoxetine HCL TAB* 10 MG PO SCH (09:07)
[2016-12-10] MEDS: ARIPiprazole TAB* 5 MG PO SCH (09:07)
[2016-12-10] MEDS: Aspirin EC Low Dose* 81 MG TAB.EC PO SCH (09:07)
[2016-12-10] MEDS: Clopidogrel TAB* 75 MG PO SCH (09:08)
[2016-12-10] MEDS: Benztropine TAB* 1 MG PO SCH (09:08)
[2016-12-10] MEDS: Gabapentin CAP(*) 100 MG PO SCH (09:08)
[2016-12-10] MEDS: Vitamin E CAP* 400 UNIT PO SCH (09:08)
[2016-12-10 09:13] VITALS: BP 133/58
--- NOTE | 2016-12-10 09:52 | PN ---
Subjective Date of Service: 12/10/16 Interval History: No complaints overnight. Plans for dc to [facility] today. Objective Active Medications: Acetaminophen (Tylenol Tab*) 650 mg PO Q6H PRN PRN Reason: PAIN Aripiprazole (Abilify Tab*) 5 mg PO DAILY [facility] Last Admin: 12/10/16 09:07 Dose: 5 mg Aspirin (Aspirin Ec Low Dose*) 81 mg PO DAILY [facility] Last Admin: 12/10/16 09:07 Dose: 81 mg Atorvastatin Calcium (Lipitor*) 20 mg PO QPM [facility] Last Admin: 12/09/16 17:55 Dose: 20 mg Benztropine Mesylate (Cogentin Tab*) 1 mg PO BID [facility] Last Admin: 12/10/16 09:08 Dose: 1 mg Clopidogrel Bisulfate (Plavix Tab*) 75 mg PO DAILY [facility] Last Admin: 12/10/16 09:08 Dose: 75 mg Dextrose (D50w Syringe 50 Ml*) 12.5 gm IV PUSH .FOR FS < 60 - SS PRN PRN Reason: FS < 60 Gabapentin (Neurontin Cap(*)) 200 mg PO TID [facility] Last Admin: 12/10/16 09:08 Dose: 200 mg Heparin Sodium (Porcine) (Heparin Vial(*)) 5,000 units SUBCUT Q8HR [facility] Last Admin: 12/10/16 06:11 Dose: 5,000 units Insulin Glargine (Lantus(*)) 10 units SUBCUT QPM [facility] Last Admin: 12/09/16 17:56 Dose: 10 units Insulin Human Lispro (Humalog*) 0 units SUBCUT AC [facility] PRN Reason: Protocol Last Admin: 12/10/16 09:00 Dose: Not Given Levothyroxine Sodium (Synthroid Tab*) 50 mcg PO 0600 [facility] Last Admin: 12/10/16 06:08 Dose: 50 mcg Paroxetine HCl (Paxil Tab*) 30 mg PO DAILY [facility] Last Admin: 12/10/16 09:07 Dose: 30 mg Tramadol HCl (Ultram*) 50 mg PO Q6H PRN PRN Reason: PAIN Last Admin: 12/05/16 15:25 Dose: 50 mg Vitamin E (Vitamin E Cap*) 800 unit PO DAILY [facility] Last Admin: 12/10/16 09:08 Dose: 800 unit Vital Signs: Temp Pulse Resp BP Pulse Ox 98.5 F 61 18 133/58 97 12/10/16 07:48 12/10/16 07:48 12/10/16 09:08 12/10/16 07:48 12/10/16 07:48 Oxygen Devices in Use Now: None Appearance: Well appearing, slightly confused Cardiovascular: NL Sounds; No Murmurs; No JVD, RRR Extremities: No Edema, - - L hand in a cast Neurological: - - alert, oriented to person and place Result Diagrams: 12/04/16 14:46 12/04/16 14:46 Additional Lab and Data: . Assess/Plan/Problems-Billing Assessment: Ms. Boone is a 71 yo F with a PMH of anxiety, depression, dementia who was admitted on 12/04/16 after a fall at home with dehydration and left 4th and 5th digit fracture. - Patient Problems (1) Falls Comment: Frequent falls at home. Patient states its because she forgets to use her walker. PT/OT reports that she has met goals Likely a cognitive component that is contributing to her falls Plan for dc to [facility] for senior living care (2) Finger fracture, left Comment: Appreciate ortho input, cast applied. Will need follow up outpatient with Dr. Leon in 3 weeks. Pain meds prn. Elevate L UE to decrease edema. (3) Dehydration Comment: Resolved with IVF. (4) Hypomagnesemia Comment: Resolved with supplementation. (5) Diabetes Comment: BGs well controlled without her usual oral hypoglycemic agents, perhaps hypoglycemia may have contributed to her falls at home Continue lantus 10 units qPM, continue SSI coverage with meals. (6) CVA (cerebral vascular accident) Comment: Hx of CVA, continue plavix. (7) Anxiety Comment: Continue abilify and paxil. (8) HLD (hyperlipidemia) Comment: Continue statin. (9) Hypothyroid Comment: TSH wnl 10/08/16. COntinue home dose levothyroxine. (10) DVT prophylaxis Comment: HSQ Status and Disposition: Inpatient. Plan for dc to [facility]
--- NOTE | 2016-12-10 10:18 | DS ---
AMENDED REPORT NOW INCLUDES COSIGNER DESIGNATION - ESIGNED BEFORE ADJUSTMENTS CC: Dr. Horowitz; [facility] ADDENDUM TO DISCHARGE SUMMARY Original discharge summary was dictated by Areli Little NP on 12/08/2016. DATE OF ADMISSION: 12/04/2016. DATE OF DISCHARGE: 12/10/2016. ATTENDING PHYSICIAN: Gregory Ramirez MD * (DICTATED BY LOTUS FISCHER) HISTORY OF PRESENT ILLNESS: Please see full discharge summary dictated by Areli Little NP from 12/08/2016. The patient is being discharged to [facility] for long-term care today. Her prior discharge summary stated that she would be discharged to [facility] for subacute rehab. The majority of the patient's gait instability is really more likely secondary to impulsive behavior related to some mild cognitive impairment, likely secondary to dementia. After discussing 24 hour care versus long-term nursing placement with the patient's daughter, with whom she lives currently, her daughter elected to pursue long-term nursing placement at this time. The patient has cast in place for treatment of left fourth and fifth digit fractures and a follow-up appointment has been made with Dr. Horowitz with Orthopedic Surgery for follow-up on December 29 for re- evaluation. No additional medication changes have been made. No changes to patient's clinical status since her prior discharge summary. LOTUS FISCHER [id number]/[facility] #: [id number] [facility] HOSPITALAndrew
== END 2016-12-10 12:45 | DRG 563 ==
LOC: ED 13:47 → MED 17:55 → OBSVTOIN 12-05 10:58
PROVIDERS: ADMIT Hospitalist; ATTEND Internal Medicine
PROC: 0RSXXZZ Reposition Left Finger Phalangeal Joint, External Approach (ICD-10-PCS; principal; 2016-12-05)
DX: S62.615A Displaced fracture of proximal phalanx of left ring finger, initial encounter for closed fracture (principal); F03.90 Unspecified dementia, unspecified severity, without behavioral disturbance, psychotic disturbance, mood disturbance, and anxiety; E83.42 Hypomagnesemia; F32.9 Major depressive disorder, single episode, unspecified; E11.9 Type 2 diabetes mellitus without complications; H91.90 Unspecified hearing loss, unspecified ear; F41.9 Anxiety disorder, unspecified; E03.9 Hypothyroidism, unspecified; E78.5 Hyperlipidemia, unspecified; E86.0 Dehydration; Z66 Do not resuscitate; S62.617A Displaced fracture of proximal phalanx of left little finger, initial encounter for closed fracture; W17.89XA Other fall from one level to another, initial encounter; Z91.81 History of falling; Y92.002 Bathroom of unspecified non-institutional (private) residence as the place of occurrence of the external cause; Z79.82 Long term (current) use of aspirin; Z88.8 Allergy status to other drugs, medicaments and biological substances; Z98.51 Tubal ligation status; Z90.710 Acquired absence of both cervix and uterus; Z80.0 Family history of malignant neoplasm of digestive organs; Z86.73 Personal history of transient ischemic attack (TIA), and cerebral infarction without residual deficits; Z90.49 Acquired absence of other specified parts of digestive tract; Z79.02 Long term (current) use of antithrombotics/antiplatelets; Z79.84 Long term (current) use of oral hypoglycemic drugs
CPT/HCPCS: 36415; 70450; 80053; 81003; 81015; 82550; 83605; 83735; 84443; 84484; 85025; 87086; 93005; A9270-GY; G0378; J1644; J2001; J3475

== ENCOUNTER → 2017-02-22 13:43 | Emergency (ER) | payer MEDICARE ==
[~2017-02-22 13:43] MED LIST: Magnesium Oxide TAB* 400 MG PO ONE; NS 0.9% 1000 ML* 1,000 ML IV ONE
--- NOTE | 2017-02-22 14:36 | RAD ---
INDICATION: Altered mental status, dizziness, confusion. COMPARISON: October 07, 2016 TECHNIQUE: Dual energy PA and routine lateral views of the chest were obtained. REPORT: No focal pulmonary lesion, compelling alveolar consolidation, pleural effusion, pneumothorax. The heart, pulmonary vasculature, and mediastinal contours are unremarkable. Surgical clips at the level of the gallbladder fossa. Unremarkable soft tissue contours and osseous structures. IMPRESSION: No evidence for acute intrathoracic disease.
--- NOTE | 2017-02-22 14:42 | RAD ---
INDICATION: Syncope COMPARISON: 2016 TECHNIQUE: Noncontrast axial source images were acquired from the skull base to the vertex. FINDINGS: Ventricles/sulci: There mild age-related is cortical atrophy with compensatory dilatation of the CSF spaces. Brain parenchyma: There is periventricular and subcortical white matter change compatible with chronic ischemia, unchanged. Intracranial hemorrhage:None. Extra-axial spaces: There are no abnormal extra axial fluid collections or evidence of extra-axial mass. Calvarium: There is no calvarial fracture or other calvarial abnormality. Scalp: There is no evidence of scalp or extracalvarial soft tissue abnormality. Paranasal sinuses/mastoid: The paranasal sinuses and mastoid air cells are clear. Other: None. IMPRESSION: Mild age-related atrophy and chronic microvascular ischemia. No acute findings.
[2017-02-22 15:03] LABS: Hematocrit 39 % (35-47); Mean Corpuscular HGB Conc 33 g/dl (31-36); Mean Corpuscular Hemoglobin 27 pg (27-31); Mean Corpuscular Volume 80 fL (80-97); Mean Platelet Volume 9 um3 (7.4-10.4); Red Blood Count 4.86 10^6/ul (4.0-5.4); Red Cell Distribution Width 14 % (10.5-15); White Blood Count 6.1 10^3/ul (3.5-10.8)
[2017-02-22 15:27] LABS: Troponin I 0.01 ng/mL (<0.04)
[2017-02-22 15:38] VITALS: BP 151/72
[2017-02-22 15:45] LABS: Albumin 4.1 g/dL (3.2-5.2); BUN/Creatinine Ratio 36.5 (8-20); Calcium 10.3 mg/dL (8.6-10.3); EGFR African American 120.5 (>60); EGFR Non-African American 93.7 (>60); Globulin 3.2 g/dL (2-4); Magnesium 1.4 mg/dL (1.9-2.7); Potassium 3.8 mmol/L (3.5-5.0); Total Bilirubin 0.4 mg/dL (0.2-1.0); Total Protein 7.3 g/dL (6.4-8.9)
[2017-02-22 15:52] LABS: TSH (Thyroid Stimulating Horm) 0.72 mcIU/mL (0.34-5.60)
[2017-02-22 17:12] LABS: Urine Bilirubin Negative (Negative); Urine Glucose Negative (Negative); Urine Nitrite Negative (Negative)
--- NOTE | 2017-02-22 18:54 | ED ---
Ryan Alvarado Angela, scribed for Kike Anderson MD on 02/22/17 at 1411 . Altered Mental Status - HPI Summary HPI Summary: This pt is a 71 y/o female BIBA from [facility] presenting to [facility] for LOC. Per daughter, pt was called from [facility] notifying her the pt was coming to the ED for LOC multiple times. Pt denies any pain. PMHx includes stroke, diabetes, depression, dementia, HTN. Per nurse's note, patient has been more confused lately. Patient had recent UTI. HPI is limited due to level 5 caveat - pt has dementia. - History Of Current Complaint Stated Complaint: AMS Time Seen by Provider: 02/22/17 14:05 Hx Obtained From: Patient, Family/Hand Packer/Packager - daughter, Other: - nurse's note Hx From Patient Unobtainable Due To: Other - level 5 caveat - pt has dementia Onset/Duration: Still Present Timing: Constant Character: Confusion Related History: Other: - dementia - Allergies/Home Medications Allergies/Adverse Reactions: Allergies Allergy/AdvReac Type Severity Reaction Status Date / Time Fluoxetine [From Prozac] Allergy Rash And Verified 12/04/16 13:56 Itching Home Medications: Home Medications metFORMIN* [Glucophage 500 MG TAB *] 500 mg PO BID 02/22/17 [History Confirmed 02/22/17] PMH/Surg Hx/FS Hx/Imm Hx Endocrine/Hematology History: Reports: Hx Anticoagulant Therapy, Hx Diabetes Cardiovascular History: Reports: Hx Hypertension Denies: Hx Pacemaker/ICD Sensory History: Reports: Hx Hearing Problem - TE-MOAK Denies: Hx Contacts or Glasses, Hx Legally Blind, Hx Deafness, Hx Hearing Aid Opthamlomology History: Denies: Hx Contacts or Glasses, Hx Legally Blind Neurological History: Reports: Hx Dementia, Hx Transient Ischemic Attacks (TIA) Psychiatric History: Reports: Hx Anxiety, Hx Depression, Hx Inpatient Treatment , Hx Community Mental Health Tx Denies: Hx Panic Disorder - Surgical History Surgery Procedure, Year, and Place: GALBLADDER. TUBAL LIGATION. HYSTERECTOMY Infectious Disease History: Denies: Hx Hepatitis, Hx Human Immunodeficiency Virus (HIV), Hx of Known/ Suspected MRSA, Traveled Outside the [place] in Last 30 Days - Family History Known Family History: Positive: Other - Colon cancer in mother - Social History Alcohol Use: None Hx Substance Use: No Substance Use Type: Reports: None Hx Tobacco Use: No Smoking Status (MU): Never Smoked Tobacco Amount Used/How Often: Pt has not smoked or used any other tobacco products in the last 30 days. Review of Systems Negative: Fever, Chills Neurological: Other - LOC All Other Systems Reviewed And Are Negative: No - Comments Additional Review of Systems Comments: ROS is limited due to level 5 caveat - pt has dementia. Physical Exam - Summary Physical Exam Summary: VITAL SIGNS: Reviewed. GENERAL: Patient is an elderly female who is lying comfortable in the stretcher. Patient is not in any acute respiratory distress. Unable to obtain history from pt. HEAD AND FACE: No signs of trauma. No ecchymosis, hematomas or skull depressions. No sinus tenderness. EYES: PERRLA, EOMI x 2, No injected conjunctiva, no nystagmus. No photophobia. EARS: Hearing grossly intact. Ear canals and tympanic membranes are within normal limits. MOUTH: Oropharynx within normal limits. Dry oral mucosa. NECK: Supple, trachea is midline, no adenopathy, no JVD, no carotid bruit, no c- spine tenderness, neck with full ROM. No meningeal signs, no Kernig's or brudzinskis signs. CHEST: Symmetric, no tenderness at palpation LUNGS: Clear to auscultation bilaterally. No wheezing or crackles. CVS: Regular rate and rhythm, S1 and S2 present, no murmurs or gallops appreciated. ABDOMEN: Soft, non-tender. No signs of distention. No rebound no guarding, and no masses palpated. Bowel sounds are normal. EXTREMITIES: FROM in all major joints, no edema, no cyanosis or clubbing. NEURO: Pt is alert but not oriented. No acute neurological deficits. Speech is normal and follows commands. SKIN: Dry and warm GCS: 15 Triage Information Reviewed: Yes Vital Signs On Initial Exam: Initial Vitals BP 146/58 02/22/17 14:05 Vital Signs Reviewed: Yes Diagnostics - Vital Signs Vital Signs Temp Pulse Resp BP Pulse Ox 02/22/17 15:36 72 151/72 02/22/17 14:58 96 02/22/17 14:36 63 98 02/22/17 14:08 97.2 F 66 16 139/88 99 02/22/17 14:07 65 99 02/22/17 14:05 146/58 - Laboratory Lab Results: Lab Results 02/22/17 02/22/17 02/22/17 Range/Units 14:50 14:50 14:50 WBC 6.1 (3.5-10.8) 10^3/ul RBC 4.86 (4.0-5.4) 10^6/ul Hgb 13.0 (12.0-16.0) g/dl Hct 39 (35-47) % MCV 80 (80-97) fL MCH 27 (27-31) pg MCHC 33 (31-36) g/dl RDW 14 (10.5-15) % Plt Count 246 (150-450) 10^3/ul MPV 9 (7.4-10.4) um3 Neut % (Auto) 61.4 (38-83) % Lymph % (Auto) 28.3 (25-47) % [place] % (Auto) 7.0 (1-9) % Eos % (Auto) 2.8 (0-6) % Baso % (Auto) 0.5 (0-2) % Absolute Neuts (auto) 3.8 (1.5-7.7) 10^3/ul Absolute Lymphs (auto) 1.7 (1.0-4.8) 10^3/ul Absolute Monos (auto) 0.4 (0-0.8) 10^3/ul Absolute Eos (auto) 0.2 (0-0.6) 10^3/ul Absolute Basos (auto) 0 (0-0.2) 10^3/ul Absolute Nucleated RBC 0.01 10^3/ul Nucleated RBC % 0.2 Sodium 139 (133-145) mmol/L Potassium 3.8 (3.5-5.0) mmol/L Chloride 103 (101-111) mmol/L Carbon Dioxide 31 (22-32) mmol/L Anion Gap 5 (2-11) mmol/L BUN 23 (6-24) mg/dL Creatinine 0.63 (0.51-0.95) mg/dL Est GFR ( Amer) 120.5 (>60) Est GFR (Non-Af Amer) 93.7 (>60) BUN/Creatinine Ratio 36.5 H (8-20) Glucose 73 (70-100) mg/dL Lactic Acid (0.5-2.0) mmol/L Calcium 10.3 (8.6-10.3) mg/dL Magnesium 1.4 L (1.9-2.7) mg/dL Total Bilirubin 0.40 (0.2-1.0) mg/dL AST 13 (13-39) U/L ALT 8 (7-52) U/L Alkaline Phosphatase 55 (34-104) U/L Troponin I 0.01 (<0.04) ng/mL B-Natriuretic Peptide 49 ( - 100) pg/mL Total Protein 7.3 (6.4-8.9) g/dL Albumin 4.1 (3.2-5.2) g/dL Globulin 3.2 (2-4) g/dL Albumin/Globulin Ratio 1.3 (1-3) TSH 0.72 (0.34-5.60) mcIU/mL Urine Color Urine Appearance Urine pH (5-9) Ur Specific [place] (1.010-1.030) Urine Protein (Negative) Urine Ketones (Negative) Urine Blood (Negative) Urine Nitrate (Negative) Urine Bilirubin (Negative) Urine Urobilinogen (Negative) Ur Leukocyte Esterase (Negative) Urine Glucose (Negative) 02/22/17 02/22/17 Range/Units 14:50 16:49 WBC (3.5-10.8) 10^3/ul RBC (4.0-5.4) 10^6/ul Hgb (12.0-16.0) g/dl Hct (35-47) % MCV (80-97) fL MCH (27-31) pg MCHC (31-36) g/dl RDW (10.5-15) % Plt Count (150-450) 10^3/ul MPV (7.4-10.4) um3 Neut % (Auto) (38-83) % Lymph % (Auto) (25-47) % [place] % (Auto) (1-9) % Eos % (Auto) (0-6) % Baso % (Auto) (0-2) % Absolute Neuts (auto) (1.5-7.7) 10^3/ul Absolute Lymphs (auto) (1.0-4.8) 10^3/ul Absolute Monos (auto) (0-0.8) 10^3/ul Absolute Eos (auto) (0-0.6) 10^3/ul Absolute Basos (auto) (0-0.2) 10^3/ul Absolute Nucleated RBC 10^3/ul Nucleated RBC % Sodium (133-145) mmol/L Potassium (3.5-5.0) mmol/L Chloride (101-111) mmol/L Carbon Dioxide (22-32) mmol/L Anion Gap (2-11) mmol/L BUN (6-24) mg/dL Creatinine (0.51-0.95) mg/dL Est GFR ( Amer) (>60) Est GFR (Non-Af Amer) (>60) BUN/Creatinine Ratio (8-20) Glucose (70-100) mg/dL Lactic Acid 1.4 (0.5-2.0) mmol/L Calcium (8.6-10.3) mg/dL Magnesium (1.9-2.7) mg/dL Total Bilirubin (0.2-1.0) mg/dL AST (13-39) U/L ALT (7-52) U/L Alkaline Phosphatase (34-104) U/L Troponin I (<0.04) ng/mL B-Natriuretic Peptide ( - 100) pg/mL Total Protein (6.4-8.9) g/dL Albumin (3.2-5.2) g/dL Globulin (2-4) g/dL Albumin/Globulin Ratio (1-3) TSH (0.34-5.60) mcIU/mL Urine Color Yellow Urine Appearance Clear Urine pH 6.0 (5-9) Ur Specific [place] 1.008 L (1.010-1.030) Urine Protein Negative (Negative) Urine Ketones Negative (Negative) Urine Blood Negative (Negative) Urine Nitrate Negative (Negative) Urine Bilirubin Negative (Negative) Urine Urobilinogen Negative (Negative) Ur Leukocyte Esterase Negative (Negative) Urine Glucose Negative (Negative) Result Diagrams: 02/22/17 14:50 02/22/17 14:50 Lab Statement: Any lab studies that have been ordered have been reviewed, and results considered in the medical decision making process. - Radiology Chest XR Xray Interpretation: No Acute Changes - IMPRESSION: No evidence for acute intrathoracic disease. ED physician has reviewed this radiology report and agrees. Radiology Interpretation Completed By: Radiologist - CT Brain CT CT Interpretation: Positive (See Comments) - IMPRESSION: Mild age-related atrophy and chronic microvascular ischemia. No acute findings. ED physician has reviewed this radiology report and agrees. CT Interpretation Completed By: Radiologist - EKG 1506 Cardiac Rate: NL - 66 bpm EKG Rhythm: Sinus Rhythm EKG Interpretation: No ST elevations Re-Evaluation - Re-Evaluation First Eval Re-Evaluation Time: 17:32 Comment: I discussed the lab, CT and XR results with the pt. Altered Mental Statu Course/Dx - Course Assessment/Plan: This pt is a 71 y/o female BIBA from [facility] presenting to [facility] for LOC. Per daughter, pt was called from [facility] notifying her the pt was coming to the ED for LOC multiple times. Pt denies any pain. Per nurse's note, patient has been more confused lately. Patient had recent UTI. HPI is limited due to level 5 caveat - pt has dementia. Test results without any significant abnormalities, except for magnesium of 1.4, for which the pt was given magnesium chloride. Urinalysis is negative for UTI. Chest XR shows no evidence for acute intrathoracic disease. Head CT shows mild age-related atrophy and chronic microvascular ischemia. No acute findings. The pt is hemodynamically stable, pt is ambulating, eating and drinking without any nausea and vomiting. The pt is at baseline. Therefore, the pt will be discharged home with follow up from PCP. - Diagnoses Differential Diagnosis/HQI/PQRI: CVA, Medication Reaction, Seizure Discharge Diagnoses: Weakness Discharge - Discharge Plan Condition: Stable Disposition: HOME Patient Education Materials: Weakness (ED) Referrals: [facility] PHYSICIAN REFERRAL [Outside] Additional Instructions: Please follow up with your primary care provider. RETURN TO THE ED FOR ANY WORSENING SYMPTOMS. The documentation as recorded by the Ryan martínez Angela accurately reflects the service I personally performed and the decisions made by me, Kike Anderson MD.
== END | disposition home or self-care (01) ==
LOC: ED 13:43
DX: R53.1 Weakness (principal); R55 Syncope and collapse; Z86.79 Personal history of other diseases of the circulatory system; F03.90 Unspecified dementia, unspecified severity, without behavioral disturbance, psychotic disturbance, mood disturbance, and anxiety; Z86.73 Personal history of transient ischemic attack (TIA), and cerebral infarction without residual deficits; Z79.01 Long term (current) use of anticoagulants; E11.9 Type 2 diabetes mellitus without complications; R41.82 Altered mental status, unspecified
CPT/HCPCS: 36415; 70450; 71020; 80053; 81003; 83605; 83735; 83880; 84443; 84484; 85025; 93005; 96360; 99282

== ENCOUNTER → 2017-03-04 18:26 | Emergency (ER) | payer MEDICARE ==
--- NOTE | 2017-03-04 20:25 | RAD ---
Indication: Unwitnessed fall. Confused. Comparison: February 23, 2017 Technique: Noncontrast CT vertex of skull through foramen magnum. Report: Mild prominence of the cerebral sulci and cerebellar fissures. Unremarkable ventricles and basal cisterns. Negative for licona matter white matter obscuration, intra or extra-axial hemorrhage, or mass effect. Decreased density in the periventricular and subcortical white matter while non-specific is most likely due to chronic microangiopathy. Unremarkable partially visualized orbital contents. Negative for calvarial or skull base fracture. 1.3 x 2.5 cm loculated scalp hematoma at the RIGHT superior lateral orbital margin decrease in size from the February 23, 2017 exam. No new scalp hematoma evident. IMPRESSION: Mild involutional change and stigmata of chronic small vessels disease. No traumatic injury or acute intracranial process evident. Interval decrease in size of RIGHT scalp hematoma at the superior lateral orbital margin.
--- NOTE | 2017-03-04 20:40 | ED ---
Shawnee Alvarado Alfonso, scribed for Leo Joel MD on 03/04/17 at 1916 . Adult Trauma - HPI Summary HPI Summary: This patient is a 71 year old F BIB[facility] from [facility] accompanied by daughter s/p an unwitnessed fall a few hours ago. Daughter reports she hit the back of her head really hard on the floor when in another persons room at her custodial. The patient rates the pain 2/10 in severity. Symptoms aggravated by nothing. Daughter reports right facial bruise (from a previous fall), and confusion (baseline). Patient reports right rib pain. 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 Patient reports right rib pain. - Additional Pertinent History Primary Care Physician: [id number] - Allergy/Home Medications Allergies/Adverse Reactions: Allergies Allergy/AdvReac Type Severity Reaction Status Date / Time Fluoxetine [From Prozac] Allergy Rash And Verified 12/04/16 13:56 Itching PMH/Surg Hx/FS Hx/Imm Hx Endocrine/Hematology History: Reports: Hx Anticoagulant Therapy, Hx Diabetes Cardiovascular History: Reports: Hx Hypertension Denies: Hx Pacemaker/ICD Sensory History: Reports: Hx Hearing Problem - LIME Denies: Hx Contacts or Glasses, Hx Legally Blind, Hx Deafness, Hx Hearing Aid Opthamlomology History: Denies: Hx Contacts or Glasses, Hx Legally Blind Neurological History: Reports: Hx Dementia, Hx Transient Ischemic Attacks (TIA) Psychiatric History: Reports: Hx Anxiety, Hx Depression, Hx Inpatient Treatment , Hx Community Mental Health Tx Denies: Hx Panic Disorder - Surgical History Surgery Procedure, Year, and Place: GALBLADDER. TUBAL LIGATION. HYSTERECTOMY Infectious Disease History: Unable to Obtain/Confirm Infectious Disease History: Denies: Hx Hepatitis, Hx Human Immunodeficiency Virus (HIV), Hx of Known/ Suspected MRSA, Traveled Outside the [place] in Last 30 Days - Family History Known Family History: Positive: Other - Colon cancer in mother - Social History Alcohol Use: None Hx Substance Use: No Substance Use Type: Reports: None Hx Tobacco Use: No Smoking Status (MU): Never Smoked Tobacco Amount Used/How Often: Pt has not smoked or used any other tobacco products in the last 30 days. Review of Systems Negative: Fever Positive: Other - fall, right rib pain. Positive: Other - right facial bruise (from a previous fall) Neurological: Other - confused All Other Systems Reviewed And Are Negative: Yes Physical Exam - Summary Physical Exam Summary: VITAL SIGNS: Reviewed. GENERAL: Patient is a well-developed and nourished female who is lying comfortable in the stretcher. Patient is not in any acute respiratory distress. HEAD AND FACE: Ecchymosis right orbital area which is old from a previous fall last week,no hematomas or skull depressions. No sinus tenderness. EYES: PERRLA, EOMI x 2, No injected conjunctiva, no nystagmus. EARS: Hearing grossly intact. Ear canals and tympanic membranes are within normal limits. MOUTH: Oropharynx within normal limits. NECK: Supple, trachea is midline, no adenopathy, no JVD, no carotid bruit, no c- spine tenderness, neck with full ROM. CHEST: Symmetric, no tenderness at palpation LUNGS: Clear to auscultation bilaterally. No wheezing or crackles. CVS: Regular rate and rhythm, S1 and S2 present, no murmurs or gallops appreciated. ABDOMEN: Soft, non-tender. No signs of distention. No rebound no guarding, and no masses palpated. Bowel sounds are normal. EXTREMITIES: FROM in all major joints, no edema, no cyanosis or clubbing. NEURO: Alert and oriented to name. No acute neurological deficits. Speech is normal and follows commands. SKIN: Dry and warm Triage Information Reviewed: Yes Vital Signs On Initial Exam: Initial Vitals Temp Pulse Resp BP Pulse Ox 97.8 F 79 20 157/60 100 03/04/17 18:36 03/04/17 18:36 03/04/17 18:36 03/04/17 18:36 03/04/17 18:36 Vital Signs Reviewed: Yes - Lucio Coma Scale Best Eye Response: 4 - Spontaneous Best Motor Response: 6 - Obeys Commands Best Verbal Response: 5 - Oriented Diagnostics - Vital Signs Vital Signs Temp Pulse Resp BP Pulse Ox 11/16/17 18:36 97.8 F 79 20 157/60 100 - Laboratory Lab Statement: Any lab studies that have been ordered have been reviewed, and results considered in the medical decision making process. - CT Brain CT Interpretation Completed By: Radiologist - Mild involutional change and stigmata of chronic small vessels disease. No traumatic injury or acute intracranial process evident. Interval decrease in size of RIGHT scalp hematoma at the superior lateral orbital margin. ED physician has reviewed this radiology report and agrees. Adult Trauma Course/Dx - Course Assessment/Plan: This patient is a 71 year old F BIBA from [facility] to [facility] accompanied by daughter s/p an unwitnessed fall a few hours ago. Daughter reports she hit the back of her head really hard on the floor when in another persons room at her custodial. The patient rates the pain 2/10 in severity. Symptoms aggravated by nothing. Daughter reports right facial bruise (from a previous fall), and confusion (baseline). Patient reports right rib pain. CT brain reveals, per radiologist, Mild involutional change and stigmata of chronic small vessels disease. No traumatic injury or acute intracranial process evident. Interval decrease in size of RIGHT scalp hematoma at the superior lateral orbital margin. ED physician has reviewed this radiology report and agrees. Patient has been stable throughout the ED course. No changes since she got here. Reviewed results with the patient and daughter. Patient will be discharged to custodial with head injury instructions and with follow up from PCP. The patient and daughter agreeable with this plan. - Diagnoses Provider Diagnoses: Head injury Discharge - Discharge Plan Condition: Stable Disposition: LONGTERM FACILITY Patient Education Materials: Head Injury (ED) Referrals: Non Staff,Doctor [Primary Care Provider] - 2 Days The documentation as recorded by the Shawnee martínez Alfonso accurately reflects the service I personally performed and the decisions made by me, Leo Joel MD.
[2017-03-04 20:59] VITALS: BP 148/76
== END | disposition home or self-care (01) ==
LOC: ED 18:26
DX: S09.90XA Unspecified injury of head, initial encounter (principal); Z79.01 Long term (current) use of anticoagulants; W19.XXXA Unspecified fall, initial encounter; Y93.9 Activity, unspecified; Y92.9 Unspecified place or not applicable
CPT/HCPCS: 70450; 99282

== ENCOUNTER 2017-09-29 13:03 | Observation (INO) | payer MEDICARE ==
[2017-09-29] MEDS ORDERED: NS 0.9% 1000 ML* 2,000 ML IV ONE (13:18)
--- NOTE | 2017-09-29 13:41 | RAD ---
INDICATION: Altered mental status. COMPARISON: Comparison is made with a prior chest x-ray study from February 22, 2017. TECHNIQUE: A portable view of the chest was obtained. FINDINGS: Cardiac and mediastinal contours appear to be within normal limits. The lungs are hyperinflated and clear. No pleural effusion is seen. IMPRESSION: NO EVIDENCE FOR ACUTE DISEASE.
[2017-09-29 13:49] LABS: ABS Basophils 0 10^3/ul (0-0.2); ABS Eosinophils 0 10^3/ul (0-0.6); ABS Lymphocytes 0.6 10^3/ul (1.0-4.8); ABS Monocytes 0.4 10^3/ul (0-0.8); ABS Nucleated RBC 0 10^3/ul; Eosinophil % 0.1 % (0-6); Hematocrit 40 % (35-47); Hemoglobin 12.9 g/dl (12.0-16.0); Mean Corpuscular HGB Conc 33 g/dl (31-36); Mean Corpuscular Hemoglobin 27 pg (27-31); Mean Corpuscular Volume 83 fL (80-97); Mean Platelet Volume 8.5 um3 (7.4-10.4); Nucleated Red Blood Cells % 0; Platelet Count 236 10^3/ul (150-450); Red Blood Count 4.76 10^6/ul (4.00-5.40); Red Cell Distribution Width 14 % (10.5-15); White Blood Count 9.1 10^3/ul (3.5-10.8)
[2017-09-29 13:51] LABS: Urine Appearance Clear; Urine Blood Negative (Negative); Urine Color Straw; Urine Ketones Trace (Negative); Urine Protein Negative (Negative); Urine Specific Gravity 1.028 (1.010-1.030); Urine Urobilinogen Negative (Negative)
[2017-09-29 14:06] LABS: EGFR Non-African American 58.2 (>60)
[2017-09-29] MEDS ORDERED: Insulin REGULAR(*) 1 UNITS UNIT IV PUSH ONE (14:27)
[2017-09-29] MEDS ORDERED: Insulin IVPB 100 units/100 ml 100 UNITS/100 ML UNIT IVPB ONE (15:06)
--- NOTE | 2017-09-29 15:19 | RAD ---
INDICATION: Altered mental status. COMPARISON: Comparison is made with a prior CT of the brain from March 04, 2017. TECHNIQUE: Contiguous axial sections of the brain were obtained from the skull base to the vertex without contrast. The exam is limited due to motion artifact. FINDINGS: The ventricles, cisterns and sulci are enlarged consistent with age-related atrophy. There are small areas of decreased density in the subcortical and periventricular white matter suggestive of mild chronic small vessel ischemic changes. No mass effect is present. There is no evidence for hemorrhage. No significant focal osseous abnormality is seen. The visualized portion of the paranasal sinuses and mastoid air cells appear clear. IMPRESSION: SLIGHTLY LIMITED EXAM, NO EVIDENCE FOR ACUTE INTRACRANIAL ABNORMALITY.
[2017-09-29] MEDS ORDERED: Ondansetron TAB* 4 MG PO PRN (15:26)
[2017-09-29] MEDS ORDERED: Acetaminophen TAB* 325 MG PO PRN (15:27)
[2017-09-29] MEDS ORDERED: Magnesium Sulfate IV* 3 GM in NS 0.9% 100 ML* 100 ML IVPB ONE (15:43)
[2017-09-29] MEDS ORDERED: NS 0.9% w/ 40 Meq KCL 1000 ML* 1,000 ML IV SCH (16:00)
[2017-09-29] MEDS ORDERED: Dextrose 50% Syringe 50 ML* 25 GM/50 ML SYRINGE IV PUSH PRN (17:19)
[2017-09-29 17:59] LABS: EGFR Non-African American 84.1 (>60)
[2017-09-29] MEDS: Insulin LISPRO* 1 UNITS UNIT SUBCUT SCH ×2 (18:57→23:12)
[2017-09-29] MEDS: Benztropine TAB* 1 MG PO SCH (20:22)
[2017-09-29] MEDS: Gabapentin CAP(*) 100 MG PO SCH (20:26)
[2017-09-29] MEDS ORDERED: Docusate LIQ* 100 MG/10 ML UDC PO SCH (21:00)
[2017-09-29] MEDS ORDERED: Atorvastatin* 20 MG TAB PO SCH (21:00)
[2017-09-29] MEDS ORDERED: Senna TAB PO SCH (21:00)
--- NOTE | 2017-09-29 21:53 | HP ---
CC: Dr. Katerine Magdaleno at [facility] * HISTORY AND PHYSICAL: DATE OF ADMISSION: 09/29/17 TIME OF EVALUATION: 3:10 p.m. PRIMARY CARE PROVIDER: Dr. Katerine Magdaleno at [facility]. CHIEF COMPLAINT: "She is crying." HISTORY OF PRESENT ILLNESS: Mrs. Boone is a 72-year-old lady with a past medical history of left MCA CVA in 2014, TIA in 2017, hypothyroidism, type 2 diabetes, depression with suicidal ideation, hypertension, hyperlipidemia, anxiety, insomnia, advanced dementia, who presented to the emergency room with altered mental status. The patient is unable to provide any meaningful history at this time, but as per her daughter for the past couple of weeks, the patient was more confused, moaning and she had been diagnosed with a urinary tract infection and started on antibiotics. The daughter states that later on the urine test result was negative, but the patient continued to be more confused, moaning and yesterday, she was called that the patient's glucose was elevated and today, she was told that the patient needed to come to the hospital. As per documentation from the [facility], the patient has been described as anxious and weepy frequently and they have been changing her medications. In early August, she was on Abilify and paroxetine was increased and further along in August, they decided to taper her Paxil and start Effexor and her diabetes was uncontrolled and they were increasing her metformin. The last note available is from 09/07/17 and at that time, the plan was to continue Effexor, but I do not see that medication in her list anymore. In any case yesterday, she had a glucose of 528, received 15 units of insulin lispro and today, her sugar is 337 in the morning, but as she was more confused and crying, she was sent to the emergency room for further evaluation. In the emergency room, her vital signs are stable, but she was found to have a glucose of 845 with a lactic acid of 2.8 and for that reason, the hospitalist service was consulted. Also of note is the fact that the patient has been recently started on ciprofloxacin for a possible UTI, but her last urine culture from 09/22/17 was negative. The prior one in July had grew Klebsiella pneumoniae greater than 100,000 colonies. PAST MEDICAL HISTORY: 1. History of CVA to left MCA in 2014. 2. History of TIA in October 2016. 3. Hypothyroidism. 4. Type 2 diabetes. 5. History of suicidal ideation with admission to the behavioral services unit in October 2016. 6. Hypertension. 7. Hyperlipidemia. 8. Depression. 9. Anxiety. 10. Dementia. MEDICATION LIST: 1. Acetaminophen 1000 mg p.o. q.8 hours p.r.n. pain or fever. 2. Aspirin 81 mg p.o. daily. 3. Benztropine 0.5 mg p.o. b.i.d. 4. Ciprofloxacin 250 mg p.o. b.i.d. 5. Clopidogrel 75 mg p.o. daily. 6. Gabapentin 200 mg p.o. q.12 hours. 7. Levothyroxine 50 mcg p.o. daily. 8. Metformin 500 mg p.o. b.i.d. 9. Ondansetron 4 mg p.o. q.8 hours p.r.n. nausea. 10. Senokot 1 tablet p.o. at bedtime. 11. Simvastatin 40 mg p.o. at bedtime. ALLERGIES: With FLUOXETINE the patient had rash and itching. FAMILY HISTORY: Unable to obtain from the patient. As per records, the mother of coronary artery disease in her 60s and father of prostate cancer in his 80s. SOCIAL HISTORY: Unable to obtain from the patient. As per records, no report of alcohol, tobacco, or drug use. She resides at [facility] now. Surrogate decision maker is her daughter, Irene Poe, phone number is [phone]. REVIEW OF SYSTEMS: Unable to obtain from the patient due to her advanced dementia. PHYSICAL EXAMINATION GENERAL: The patient is an elderly lady, confused, lying in the ED stretcher, not in distress, but she gets more agitated if the daughter walks away from her. VITAL SIGNS: Temperature 98, heart rate is 79, respiratory rate is 18, oxygen saturation is 99% on room air, blood pressure is 129/67. HEENT: Pupils are equal. Dry mucous membranes. CHEST: Breath sounds bilaterally with no added sounds. CVS: Normal S1, S2. Regular rate and rhythm. ABDOMEN: Soft. Bowel sounds are present. EXTREMITIES: No edema. NEURO: She is alert and awake, but does not answer questions. She is able to move all 4 extremities. LABORATORY AND IMAGING DATA: The patient had a CBC that showed WBC of 9.1, hemoglobin of 12.9, hematocrit of 40, platelets of 236 with 87% neutrophils. Chemistry showed a sodium of 131, potassium of 4.8, chloride of 97, bicarb of 23 , BUN of 32, creatinine of 0.95, glucose of 845, lactic acid 2.8, calcium of 10.2, magnesium of 1.3. LFTs were normal. Ammonia was 63. TSH 0.81. Urinalysis showed trace ketones and 3+ glucose, but otherwise was normal. Urine toxicology was negative as well as acetaminophen and alcohol levels. Chest x-ray showed no evidence for acute disease. CT of the brain was a slightly limited exam, but no evidence for acute intracranial abnormality. ASSESSMENT AND PLAN: Mrs. Boone is a 72-year-old lady with a past medical history of cerebrovascular accident, transient ischemic attack, hypothyroidism, type 2 diabetes, hypertension, hyperlipidemia, depression, anxiety with history of suicidal ideation in 2017, advanced dementia, who presents to the emergency room with progressive confusion, found to have hyperosmolar nonketotic state. 1. Hyperosmolar nonketotic state. The etiology is unclear at this time as the patient seems to be taking all her medications at [facility]. She will be admitted to the intensive care unit and she is going to receive aggressive fluid resuscitation and she will be started on insulin drip. She appears to be dehydrated and we are going to continue IV fluids. She has no signs of active infection at this time. I believe the ciprofloxacin may be contributing to her confusion, so I am going to discontinue it at this point. As described above, her urinalysis is negative. Her chest x-ray shows no infiltrates and she has no signs of infection at this point. I am going to check a hemoglobin A1c, but I suspect her diabetes has been poorly controlled for some time as her hemoglobin A1c was 11 in July. 2. History of cerebrovascular accident/transient ischemic attack. We will continue aspirin, Plavix, and statin. 3. Depression/advanced dementia. We will continue Cogentin and at this point, it appears that her antidepressants were discontinued according to her list from [facility]. 4. DVT prophylaxis. The patient has a score of 2 on the DVT Prophylaxis Assessment Guide and she will be started on subcutaneous heparin. 5. Code status. The patient is a do not resuscitate and there is a MOLST form filled up to reflect that. TIME SPENT: Approximately 55 minutes were spent with the patient and daughter interview, medical records review, physical examination to complete this admission; more than half of this time was spent [id number] with the patient in coordination of care. [id number]/[facility] #: [id number] KASSIED
[2017-09-29] MEDS: Heparin VIAL(*) 5000 UNITS/ML VIAL (FIVE THOUSAND) SUBCUT SCH (23:13)
[2017-09-30] MEDS: Insulin LISPRO* 1 UNITS UNIT SUBCUT SCH ×4 (03:25→12:35)
[2017-09-30] MEDS: Heparin VIAL(*) 5000 UNITS/ML VIAL (FIVE THOUSAND) SUBCUT SCH (05:40)
[2017-09-30] MEDS ORDERED: Levothyroxine TAB* 50 MCG TAB PO SCH (06:00)
[2017-09-30 06:08] LABS: ABS Basophils 0.1 10^3/ul (0-0.2); ABS Eosinophils 0.3 10^3/ul (0-0.6); ABS Lymphocytes 2.8 10^3/ul (1.0-4.8); ABS Monocytes 0.6 10^3/ul (0-0.8); ABS Neutrophils 4.9 10^3/ul (1.5-7.7); ABS Nucleated RBC 0 10^3/ul; Eosinophil % 3.9 % (0-6); Hematocrit 36 % (35-47); Hemoglobin 12.3 g/dl (12.0-16.0); Lymphocyte % 32.6 % (25-47); Mean Corpuscular HGB Conc 34 g/dl (31-36); Mean Corpuscular Hemoglobin 27 pg (27-31); Mean Corpuscular Volume 80 fL (80-97); Mean Platelet Volume 7.8 um3 (7.4-10.4); Nucleated Red Blood Cells % 0; Platelet Count 230 10^3/ul (150-450); Red Blood Count 4.53 10^6/ul (4.00-5.40); Red Cell Distribution Width 13 % (10.5-15); White Blood Count 8.6 10^3/ul (3.5-10.8)
[2017-09-30 06:26] LABS: EGFR Non-African American 104.9 (>60)
[2017-09-30] MEDS: Gabapentin CAP(*) 100 MG PO SCH (08:00)
[2017-09-30] MEDS: Benztropine TAB* 1 MG PO SCH (08:00)
[2017-09-30] MEDS ORDERED: Aspirin 81 mg CHEW TAB* 81 MG TAB.CHEW PO SCH (09:00)
[2017-09-30] MEDS ORDERED: Clopidogrel TAB* 75 MG PO SCH (09:00)
[2017-09-30 10:53] VITALS: BP 139/76
[2017-09-30] MEDS ORDERED: Insulin GLARGINE(*) 1 UNITS UNIT SUBCUT ONE (11:14)
--- NOTE | 2017-09-30 14:04 | DS ---
DISCHARGE SUMMARY: DATE OF ADMISSION: 09/29/17 DATE OF DISCHARGE: 09/30/17 PRINCIPAL DISCHARGE DIAGNOSES: 1. Hyperglycemia. 2. Poorly controlled diabetes. SECONDARY DISCHARGE DIAGNOSES: 1. Dementia. 2. History of cerebrovascular accident and transient ischemic attack. 3. Hypothyroidism. 4. Hypertension. 5. Depression. DISCHARGE MEDICATIONS: 1. Levothyroxine 50 mcg daily. 2. Plavix 75 mg daily. 3. Gabapentin 200 mg q.12. 4. Benztropine 0.5 mg b.i.d. 5. Simvastatin 40 mg q.h.s. 6. Metformin 500 mg b.i.d. 7. Lantus 12 units daily. 8. Aspirin 81 mg daily. FOLLOWUP NEEDED: Ms. Boone needs a.c., h.s. fingersticks and close monitoring of her diabetes as she has new 2 long-acting insulin. HOSPITAL COURSE BY PROBLEM: 1. Hyperosmolar nonketotic hyperglycemia. At admission, Ms. Boone's glucose on a BMP was 845. She was placed on an insulin drip and admitted to the intensive care unit. Her glucose responded appropriately and the insulin drip was able to be discontinued. She received aggressive IV fluid resuscitation and her hemoglobin A1c returned at 11.0. She had no evidence of infection that led to hyperglycemia and I suspect she has had poorly controlled diabetes for some time given the finding of her A1c. She is being started on Lantus at a weight based dose. She last received Lantus on 09/30/17 at 12 p.m. She should be continued on Lantus daily starting tomorrow morning, 10/01/17. She should have a.c., h.s. fingersticks with close monitoring of her blood sugar as she has new to long-acting insulin. 2. Dementia. Her daughter is at the bedside and says that her emotional lability is at baseline at this time. She continues to have tearfulness, but is easily redirectable and pleasant. 3. History of CVA and TIA. She was continued on aspirin and Plavix and statin. 4. Hypothyroidism. She was continued on the same dose of levothyroxine. PHYSICAL EXAMINATION: At the time of discharge, temperature 98.5, heart rate 80 , respiratory rate 18, pulse ox 95% on room air, blood pressure 139/76. General : Alert, pleasant elderly female in no distress. She becomes weepy with questioning, but is easily able to be calmed with coaching. HEENT: Pupils are equal, round, and reactive to light. No nystagmus. Oral mucosa is moist. No pharyngeal exudates or erythema. Neck: No JVP. No cervical adenopathy. Chest : Regular rate and rhythm. No murmurs. PMI nondisplaced. Lungs: Clear bilaterally. Abdomen: Soft, nontender, nondistended. No guarding or rebound. Extremities: No edema. No ulcers. No rashes. DISCHARGE DIET: Unrestricted. [id number]/[facility] #: [id number] [facility]
== END 2017-09-30 15:20 ==
LOC: ED 13:03 → INTOOBSV 15:29 → ICU 15:29
PROVIDERS: ADMIT Internal Medicine; ATTEND Internal Medicine
DX: R41.82 Altered mental status, unspecified (principal); Z86.73 Personal history of transient ischemic attack (TIA), and cerebral infarction without residual deficits; I10 Essential (primary) hypertension; E23.2 Diabetes insipidus; E03.9 Hypothyroidism, unspecified; R45.851 Suicidal ideations; F32.9 Major depressive disorder, single episode, unspecified; E78.5 Hyperlipidemia, unspecified; F41.9 Anxiety disorder, unspecified; G47.00 Insomnia, unspecified; F03.90 Unspecified dementia, unspecified severity, without behavioral disturbance, psychotic disturbance, mood disturbance, and anxiety; Z79.899 Other long term (current) drug therapy; Z79.82 Long term (current) use of aspirin; Z79.84 Long term (current) use of oral hypoglycemic drugs; R00.0 Tachycardia, unspecified
CPT/HCPCS: 36415; 70450; 71045; 80048; 80053; 80307; 80320; 80329; 81003; 82140; 82248; 82550; 83036; 83605; 83735; 83930; 84100; 84443; 84484; 85025; 87641; 93005; 96372; 99284; A9270-GY; G0378; G0480; J1644; J1815; J3475

== ENCOUNTER 2018-03-06 15:53 | Emergency (ER) | payer MEDICARE ==
[2018-03-06] MEDS ORDERED: NS 0.9% 1000 ML* 1,000 ML IV ONE (16:10)
--- NOTE | 2018-03-06 16:24 | ED ---
Neurological HPI - HPI Summary HPI Summary: A 72 y/o female accompanied by her daughter brought in by ambulance presents to ED c/o weakness. In the ED room, the patient has a pulse of 69 BPM, O2 saturation of 100% and blood pressure of 152/74. As per triage, "per EMS report , pt is insulin dependent DM, had BG of 34 yesterday, and long term was c/o due to pt weakness today, reporting pt was unable to stand today. EMS was able to ambulate pt a few steps. pt has hx of dementia, alert to self at baseline. pt denies pain. no facial droop, arm drift. equal rail splitter strength bilaterally. PERRLA. pt DENNISON with full ROM". According to the daughter, she saw the patient yesterday where her sugar was down to 34, however, she was able to get it back up. Today, they went for lunch and the patient had much trouble walking and ended up falling over to the side. She could not even hold a cup well. [employer] (at home nursing) stated that she was not herself this morning as she had difficulty completing routine activities. She stated that there is a huge difference from what the patient was from 2 days ago compared to now. She denies any fever, however, the patient did have diarrhea. Patient lives at [facility] and has PMHx of dementia. We were not able to get any history from the patient, however, the daughter gave some of the history. - History of Current Complaint Chief Complaint: EDWeakness Stated Complaint: GENERAL WEAKNESS Time Seen by Provider: 03/06/18 16:02 Hx Obtained From: Patient Onset/Duration: Sudden Onset, Started days ago, Still Present Timing: Constant Current Severity: None Number of Seizures: 0 Pain Intensity: 0 Pain Scale Used: 0-10 Numeric Character: Weak Aggravating: Nothing Alleviating: Nothing Associated Signs and Symptoms: Positive: Diarrhea - Additional Pertinent History Primary Care Physician: [id number] - Allergy/Home Medications Allergies/Adverse Reactions: Allergies Allergy/AdvReac Type Severity Reaction Status Date / Time fluoxetine Allergy Rash And Verified 09/29/17 15:36 Itching PMH/Surg Hx/FS Hx/Imm Hx Endocrine/Hematology History: Reports: Hx Anticoagulant Therapy, Hx Diabetes Cardiovascular History: Reports: Hx Hypertension Denies: Hx Pacemaker/ICD Sensory History: Reports: Hx Hearing Problem - [place] Denies: Hx Contacts or Glasses, Hx Legally Blind, Hx Deafness, Hx Hearing Aid Opthamlomology History: Denies: Hx Contacts or Glasses, Hx Legally Blind Neurological History: Reports: Hx Dementia, Hx Transient Ischemic Attacks (TIA) Psychiatric History: Reports: Hx Anxiety, Hx Depression, Hx Inpatient Treatment , Hx Community Mental Health Tx Denies: Hx Panic Disorder - Surgical History Surgery Procedure, Year, and Place: GALBLADDER. TUBAL LIGATION. HYSTERECTOMY Infectious Disease History: Unable to Obtain/Confirm Infectious Disease History: Denies: Hx Hepatitis, Hx Human Immunodeficiency Virus (HIV), Hx of Known/ Suspected MRSA, Traveled Outside the [place] in Last 30 Days - Family History Known Family History: Positive: Other - Colon cancer in mother - Social History Alcohol Use: None Hx Substance Use: No Substance Use Type: Reports: None Hx Tobacco Use: No Smoking Status (MU): Never Smoked Tobacco Amount Used/How Often: Pt has not smoked or used any other tobacco products in the last 30 days. Review of Systems Negative: Fever Positive: Diarrhea Positive: Weakness All Other Systems Reviewed And Are Negative: Yes Physical Exam - Summary Physical Exam Summary: VITAL SIGNS: Reviewed. GENERAL: Patient is a elderly female who is lying comfortable in the stretcher. Patient is not in any acute respiratory distress. Patient is in no acute distress. Patient is alert and oriented. HEAD AND FACE: No signs of trauma. No ecchymosis, hematomas or skull depressions. No sinus tenderness. EYES: PERRLA, EOMI x 2, No injected conjunctiva, no nystagmus. EARS: Hearing grossly intact. Ear canals and tympanic membranes are within normal limits. MOUTH: Oropharynx within normal limits. NECK: Supple, trachea is midline, no adenopathy, no JVD, no carotid bruit, no c- spine tenderness, neck with full ROM. CHEST: Symmetric, no tenderness at palpation LUNGS: No wheezing or crackles. Coarse breath sounds bilaterally. CVS: Regular rate and rhythm, S1 and S2 present, no murmurs or gallops appreciated. ABDOMEN: Soft, non-tender. No signs of distention. No rebound no guarding, and no masses palpated. Bowel sounds are normal. EXTREMITIES: FROM in all major joints, no edema, no cyanosis or clubbing. NEURO: Alert and oriented x 3. No acute neurological deficits. Speech is normal and follows commands. SKIN: Dry and warm. Ecchymosis if left fifth digit. Triage Information Reviewed: Yes Vital Signs On Initial Exam: Initial Vitals Temp Pulse Resp BP Pulse Ox 98.4 F 71 20 157/74 100 03/06/18 15:55 03/06/18 15:55 03/06/18 15:55 03/06/18 15:55 03/06/18 15:55 Vital Signs Reviewed: Yes Diagnostics - Vital Signs Vital Signs Temp Pulse Resp BP Pulse Ox 03/06/18 15:55 98.4 F 71 20 157/74 100 - Laboratory Result Diagrams: 03/06/18 16:27 03/06/18 16:27 Lab Statement: Any lab studies that have been ordered have been reviewed, and results considered in the medical decision making process. - Radiology CXR Radiology Interpretation Completed By: Radiologist - The constellation of findings is concerning for potential bronchopneumonia. ED PHYSICIAN REVIEWED THIS RADIOLOGY REPORT. - EKG 1618 Cardiac Rate: NL - 66 BPM EKG Rhythm: Sinus Rhythm - [address] Segment: Normal - NO ST ELEVATIONS EKG Comparison: No Significant Change - NO CHANGE FROM 09/19/17 Course/Dx - Course Assessment/Plan: A 72 y/o female accompanied by her daughter brought in by ambulance presents to ED c/o weakness. In the ED room, the patient has a pulse of 69 BPM, O2 saturation of 100% and blood pressure of 152/74. As per triage, "per EMS report, pt is insulin dependent DM, had BG of 34 yesterday, and long term was c/o due to pt weakness today, reporting pt was unable to stand today. EMS was able to ambulate pt a few steps. pt has hx of dementia, alert to self at baseline. pt denies pain. no facial droop, arm drift. equal rail splitter strength bilaterally. PERRLA. pt DENNISON with full ROM". According to the daughter, she saw the patient yesterday where her sugar was down to 34, however, she was able to get it back up. Today, they went for lunch and the patient had much trouble walking and ended up falling over to the side. She could not even hold a cup well. [employer] (at home nursing) stated that she was not herself this morning as she had difficulty completing routine activities. She stated that there is a huge difference from what the patient was from 2 days ago compared to now. She denies any fever, however, the patient did have diarrhea. Patient lives at [facility] and has PMHx of dementia. We were not able to get any history from the patient, however, the daughter gave some of the history. Blood work without any significant abnormality except for slight anemia, glucose 112, urinalysis is contaminated. Repeat the urinalysis shows a positive UTI. A chest x-ray impression: Constellation of findings is concerning for potential bronchopneumonia. Cause of the patients presentation probably the patient has pneumonia therefore she was started on Rocephin. At this time the patient will be discharged back to the long term with a prescription for Levaquin. Patient is hemodynamically stable alert and not oriented. - Diagnoses Provider Diagnoses: Bronchopneumonia, UTI (urinary tract infection) Discharge - Sign-Out/Discharge Documenting (check all that apply): Patient Departure - DISCHARGE - Discharge Plan Condition: Stable Disposition: HOME Prescriptions: Levofloxacin TAB* [Levaquin TAB*] 500 mg PO DAILY #10 tab Patient Education Materials: Urinary Tract Infection in Women (ED) Referrals: [facility] [Outside] - 3 Days Additional Instructions: FOLLOW UP WITH PRIMARY CARE OR [facility] IN 3 DAYS. FOLLOW UP WITH YOUR PRIMARY CARE PROVIDER WITHIN ONE WEEK FOR HIGH BLOOD PRESSURE NOTED TODAY. RETURN TO ED FOR ANY NEW OR WORSENING SYMPTOMS. - Billing Disposition and Condition Condition: STABLE Disposition: Home - Attestation Statements Document Initiated by Michelle: Yes Documenting Scribe: Fox Roy Provider For Whom Michelle is Documenting (Include Credential): Kike Anderson MD Scribe Attestation: Fox Alvarado scribed for Kike Anderson MD on 03/06/18 at 1850. Scribe Documentation Reviewed: Yes Provider Attestation: The documentation as recorded by the Fox martínez accurately reflects the service I personally performed and the decisions made by me, Kike Anderson MD
[2018-03-06 16:38] LABS: ABS Basophils 0 10^3/ul (0-0.2); ABS Eosinophils 0.2 10^3/ul (0-0.6); ABS Monocytes 0.5 10^3/ul (0-0.8); ABS Neutrophils 3.8 10^3/ul (1.5-7.7); ABS Nucleated RBC 0 10^3/ul; Eosinophil % 2.4 % (0-6); Hematocrit 33 % (35-47); Hemoglobin 11.1 g/dl (12.0-16.0); Lymphocyte % 30.8 % (25-47); Mean Corpuscular HGB Conc 34 g/dl (31-36); Mean Corpuscular Hemoglobin 28 pg (27-31); Mean Corpuscular Volume 83 fL (80-97); Nucleated Red Blood Cells % 0.1; Platelet Count 262 10^3/ul (150-450); Red Blood Count 3.96 10^6/ul (4.00-5.40); Red Cell Distribution Width 14 % (10.5-15); White Blood Count 6.4 10^3/ul (3.5-10.8)
[2018-03-06 16:57] LABS: EGFR Non-African American 65.2 (>60)
[2018-03-06 17:08] LABS: Urine Appearance Cloudy; Urine Blood 1+ (Negative); Urine Color Yellow; Urine Ketones Negative (Negative); Urine Protein Negative (Negative); Urine Red Blood Cell 3+(>10/hpf) (Absent); Urine Specific Gravity 1.003 (1.010-1.030); Urine Urobilinogen Negative (Negative); Urine White Blood Cell 2+(11-20/hpf) (Absent)
[2018-03-06] MEDS ORDERED: cefTRIAXone(*) 1 GM in NS 0.9% 50 ML* 50 ML IVPB ONE (18:04)
[2018-03-06 18:19] LABS: Urine Appearance Clear; Urine Blood Negative (Negative); Urine Color Colorless; Urine Ketones Negative (Negative); Urine Protein Negative (Negative); Urine Red Blood Cell Absent (Absent); Urine Specific Gravity 1.003 (1.010-1.030); Urine Urobilinogen Negative (Negative); Urine White Blood Cell 3+(>20/hpf) (Absent)
[2018-03-06 19:14] VITALS: BP 157/77
== END 2018-03-06 19:15 | disposition home or self-care (01) ==
LOC: ED 15:53
DX: J18.0 Bronchopneumonia, unspecified organism (principal); N39.0 Urinary tract infection, site not specified; Z79.01 Long term (current) use of anticoagulants; I10 Essential (primary) hypertension
CPT/HCPCS: 36415; 71046; 80053; 81003; 81015; 83605; 83735; 83880; 84443; 84484; 85025; 86140; 87086; 93005; 96360; 96361; 99283; J0696

== ENCOUNTER 2018-05-19 03:36 | Emergency (ER) | payer MEDICARE ==
--- NOTE | 2018-05-19 03:56 | ED ---
Altered Mental Status - HPI Summary HPI Summary: Pt is a 72 y/o F presenting to the ED brought in by EMS from [facility] for altered mental status. LEVEL 5 CAVEAT: Pt history and physical limited due pts diagnosis of dementia. Per daughter, staff called her at around 0130 to let her know her O2 levels were low. The aide that regularly works with her said she wasnt acting the same. - History Of Current Complaint Chief Complaint: EDAltMentalStatus Stated Complaint: AMS Time Seen by Provider: 05/19/18 03:46 Hx Obtained From: Family/Medical Receptionist Medical Assistant, EMS Hx From Patient Unobtainable Due To: Dementia Onset/Duration: Unknown, Still Present Timing: Constant, Lasting Days Severity Initially: Mild Severity Currently: Moderate Character: Confusion, Agitation - crying Aggravating Factor(s): Unknown Alleviating Factor(s): Nothing Related History: Similar Episode/Diagnosed As: - dementia - Allergies/Home Medications Allergies/Adverse Reactions: Allergies Allergy/AdvReac Type Severity Reaction Status Date / Time fluoxetine Allergy Rash And Verified 09/29/17 15:36 Itching Home Medications: Home Medications Dulcolax Supp* 10 mg [place] Q12HR PRN 05/19/18 [History Confirmed 05/19/18] Melatonin 3 mg Tablet 3 mg PO DAILY 05/19/18 [History Confirmed 05/19/18] Mirtazapine TAB* 15 mg PO DAILY 05/19/18 [History Confirmed 05/19/18] Seroquel 25 MG TAB* 25 mg PO Q12HR 05/19/18 [History Confirmed 05/19/18] Simvastatin TAB(NF) 40 mg PO DAILY 05/19/18 [History Confirmed 05/19/18] Wellbutrin TAB* 200 mg PO DAILY 05/19/18 [History Confirmed 05/19/18] Zofran 4 MG Tab* 4 mg PO DAILY 05/19/18 [History Confirmed 05/19/18] clonazePAM TAB(*) 0.5 mg PO BID 05/19/18 [History Confirmed 05/19/18] PMH/Surg Hx/FS Hx/Imm Hx Previously Healthy: No Endocrine/Hematology History: Reports: Hx Anticoagulant Therapy, Hx Diabetes Cardiovascular History: Reports: Hx Hypertension Denies: Hx Pacemaker/ICD Sensory History: Reports: Hx Hearing Problem - [place] Denies: Hx Contacts or Glasses, Hx Legally Blind, Hx Deafness, Hx Hearing Aid Opthamlomology History: Denies: Hx Contacts or Glasses, Hx Legally Blind Neurological History: Reports: Hx Dementia, Hx Transient Ischemic Attacks (TIA) Psychiatric History: Reports: Hx Anxiety, Hx Depression, Hx Inpatient Treatment , Hx Community Mental Health Tx Denies: Hx Panic Disorder - Surgical History Surgery Procedure, Year, and Place: GALBLADDER. TUBAL LIGATION. HYSTERECTOMY Infectious Disease History: No Infectious Disease History: Denies: Hx Hepatitis, Hx Human Immunodeficiency Virus (HIV), Hx of Known/ Suspected MRSA, Traveled Outside the [place] in Last 30 Days - Family History Known Family History: Positive: Other - Colon cancer in mother - Social History Alcohol Use: None Hx Substance Use: No Substance Use Type: Reports: None Hx Tobacco Use: No Smoking Status (MU): Never Smoked Tobacco Amount Used/How Often: Pt has not smoked or used any other tobacco products in the last 30 days. Review of Systems Negative: Fever Positive: Other - confusion All Other Systems Reviewed And Are Negative: No Physical Exam - Summary Physical Exam Summary: Appearance: Very confused and anxious, in no acute distress, rambling incoherently, unable to engage in meaningful conversation. Skin: Warm, dry, no obvious rash Eyes: sclera anicteric, no conjunctival pallor ENT: mucous membranes moist, pharynx appears normal Neck: Supple, nontender Respiratory: Clear to auscultation, no signs of respiratory distress Cardiovascular: Normal S1, S2. No murmurs. Normal distal pulses in tibial and radial bilaterally. Abdomen: Soft, nontender, normal active bowel sounds present Musculoskeletal: Normal, Strength/ROM Intact Neurological: awake and alert but disoriented, unable to give hx, no focal motor deficits noted. Psychiatric: appears confused and anxious Triage Information Reviewed: Yes Vital Signs On Initial Exam: Initial Vitals Temp Pulse Resp BP Pulse Ox 95.5 F 84 18 158/63 97 05/19/18 03:38 05/19/18 03:38 05/19/18 03:38 05/19/18 03:38 05/19/18 03:38 Vital Signs Reviewed: Yes Completion Of Physical Exam Limited Due To: Dementia Diagnostics - Vital Signs Vital Signs Temp Pulse Resp BP Pulse Ox 05/19/18 03:38 95.5 F 84 18 158/63 97 - Laboratory Result Diagrams: 05/19/18 04:05/19/18 04:09 Lab Statement: Any lab studies that have been ordered have been reviewed, and results considered in the medical decision making process. - Radiology Chest x-ray Radiology Interpretation Completed By: ED Physician Summary of Radiographic Findings: No acute disease. Pending official radiology report. Altered Mental Statu Course/Dx - Diagnoses Provider Diagnoses: Dementia Discharge - Sign-Out/Discharge Documenting (check all that apply): Patient Departure Patient Received Moderate/Deep Sedation with Procedure: No - Discharge Plan Condition: Guarded Disposition: HOME Patient Education Materials: Dementia (ED) Referrals: Lorelei Nieves [Primary Care Provider] - Additional Instructions: We did not find any significant lab or xray abnormalities. Her VS are stable and there was no fever. The cause of her deterioration is unclear at present but pt should be monitored for changes in vital signs or new symptoms that may shed light on her situation. - Billing Disposition and Condition Condition: GUARDED Disposition: Home - Attestation Statements Document Initiated by Scribe: Yes Documenting Scribe: Rama Fontenot Provider For Whom Michelle is Documenting (Include Credential): Kwasi Elder MD. Scribe Attestation: Rama Alvarado scribed for Kwasi Elder MD. on 05/20/18 at 1942. Scribe Documentation Reviewed: Yes Provider Attestation: The documentation as recorded by the Rama martínez accurately reflects the service I personally performed and the decisions made by Kwasi farrell MD. Status of Scribe Document: Viewed
[2018-05-19 04:07] LABS: Urine Appearance Cloudy; Urine Bilirubin Negative (Negative); Urine Blood Negative (Negative); Urine Color Yellow; Urine Glucose Negative (Negative); Urine Ketones Negative (Negative); Urine Nitrite Negative (Negative); Urine Protein Negative (Negative); Urine Specific Gravity 1.017 (1.010-1.030); Urine Urobilinogen Negative (Negative)
[2018-05-19 04:19] LABS: ABS Basophils 0 10^3/ul (0-0.2); ABS Eosinophils 0.2 10^3/ul (0-0.6); ABS Monocytes 0.4 10^3/ul (0-0.8); ABS Neutrophils 3.3 10^3/ul (1.5-7.7); ABS Nucleated RBC 0 10^3/ul; Eosinophil % 3.2 %; Hematocrit 35 % (35-47); Hemoglobin 11.7 g/dl (12.0-16.0); Lymphocyte % 33.9 %; Mean Corpuscular HGB Conc 34 g/dl (31-36); Mean Corpuscular Hemoglobin 28 pg (27-31); Mean Corpuscular Volume 84 fL (80-97); Mean Platelet Volume 7.6 fL (7.4-10.4); Nucleated Red Blood Cells % 0; Platelet Count 275 10^3/ul (150-450); Red Blood Count 4.16 10^6/ul (4.00-5.40); Red Cell Distribution Width 14 % (10.5-15); White Blood Count 5.9 10^3/ul (3.5-10.8)
[2018-05-19 04:39] LABS: Albumin 4.2 g/dL (3.2-5.2); Albumin/Globulin Ratio 1.6 (1-3); BUN/Creatinine Ratio 31.1 (8-20); Calcium 9.9 mg/dL (8.6-10.3); EGFR African American 74.9 (>60); EGFR Non-African American 61.9 (>60); Globulin 2.6 g/dL (2-4); Total Bilirubin 0.4 mg/dL (0.2-1.0); Total Protein 6.8 g/dL (6.4-8.9)
[2018-05-19 05:45] VITALS: BP 121/76
== END 2018-05-19 05:44 | disposition home or self-care (01) ==
LOC: ED 03:36
DX: F03.90 Unspecified dementia, unspecified severity, without behavioral disturbance, psychotic disturbance, mood disturbance, and anxiety (principal); G45.9 Transient cerebral ischemic attack, unspecified; F41.9 Anxiety disorder, unspecified; F32.9 Major depressive disorder, single episode, unspecified; Z79.01 Long term (current) use of anticoagulants; Z88.8 Allergy status to other drugs, medicaments and biological substances
CPT/HCPCS: 36415; 71045; 80053; 81003; 83605; 85025; 99284